=== PATIENT | male | born 1950 | race Caucasian/White ===

== ENCOUNTER 2019-09-23 09:26 | Outpatient (CLI) | payer MEDICARE, SELFPAY ==
--- NOTE | 2019-09-23 09:41 | XR_ITS ---
WS: [id number] XR chest 2V* [id number] REASON FOR EXAM: COPD FINDINGS: The lung martini are hyper aerated. In the right lung base there appears to be a nodular den sity. Follow-up evaluation of this lesion re-x-rayed and 2-3 months recommended. The heart is not enlarged There is no pneumonia, pleural effusion, pulmonary edema, no mass effect. Other than described above. There is degenerate changes of the thoracic spine XR/XR chest 2V* [id number] IMPRESSION: Chronic obstructive pulmonary disease. A questionable pulmonary nodule right lung base follow-up recommended 2-3 month s re-x-raying.
== END 2019-09-23 09:27 | disposition home or self-care (01) ==
LOC: RAD 09:37
PROVIDERS: Family Provider Family Medicine; PCP Family Medicine; Visit Provider Family Medicine
DX: J44.9 Chronic obstructive pulmonary disease, unspecified (principal)
CPT/HCPCS: 71046

== ENCOUNTER 2019-10-13 09:12 | Outpatient (CLI) | payer MEDICARE, SELFPAY ==
--- NOTE | 2019-10-13 09:34 | CT_ITS ---
WS: [id number] CT CHEST WITH INTRAVENOUS CONTRAST HISTORY: SOLITARY PULMONARY NODULE TECHNIQUE: Contiguous 5 mm axial imaging performed on the thorax. Coronal and sagittal reformats are submitted. All CT scans at [facility] use at least one of these dose optimization techniq ues: automated exposure control; mA and/or kV adjustment per patient size (includes targeted exams wh ere dose is matched to clinical indication); or iterative reconstruction. CONTRAST: Omnipaque 300; 95 mL IV. DLP: 1163.29 mGycm COMPARISON: 06/01/2010 and chest radiograph 09/23/2019 CT evaluation is limited by breathing motion artifact. Lungs and central airway: Mild pulmonary hyperinflation. Bandlike areas of atelectasis at the lung ba ses. Prominent pericardial fat is also noted. Pleura: Normal. No pleural effusion. Heart and pericardium: Slight increased pericardial fat deposition. Mediastinum and frank: No mediastinal or hilar adenopathy. Vessels: Extensive coronary artery calcifications. Mild atherosclerosis aorta. Pulmonary artery size is equal to the aorta. Chest wall and lower neck: No soft tissue masses. Upper abdomen: Small hiatal hernia. Hepatic and splenic granulomata. Mild hepatic steatosis. Prior ch olecystectomy. Mild cortical thinning and perinephric stranding around the superior poles of each kid kay. No adrenal abnormality. Osseous structures: No osteoblastic or osteolytic bone disease. Mild thoracic spondylosis. Postsurgic al changes in the mid lateral LEFT thorax for rib resection. CT/CT chest w con* [id number] IMPRESSION: 1. No pulmonary mass or nodule. 2. Chronic emphysema with platelike areas of atelectasis at the lung bases. 3. Extensive igiugig coronary artery calcification. 4. No adenopathy. 5. Prior cholecystectomy.
[2019-10-13] MEDS: iohexol 300 mg/mL 100 mL Btl IV (09:50)
== END 2019-10-13 09:13 | disposition home or self-care (01) ==
LOC: RADWPI 09:32
PROVIDERS: Family Provider Family Medicine; PCP Family Medicine; Visit Provider Family Medicine
DX: J43.9 Emphysema, unspecified (principal); R91.1 Solitary pulmonary nodule; I25.10 Atherosclerotic heart disease of native coronary artery without angina pectoris; Z90.49 Acquired absence of other specified parts of digestive tract
CPT/HCPCS: 71260; Q9967

== ENCOUNTER 2019-12-29 09:51 | Outpatient (CLI) | payer MEDICARE, SELFPAY ==
--- NOTE | 2019-12-29 13:04 | PFTS_ITS ---
Date of Study:12/29/19 Date of Dictation: MECHANICS: Forced vital capacity (FVC) is reduced. Forced expiratory volume in one second (FEV1) is reduced. FEV1/FVC is reduced. FLOW VOLUME LOOP: Reduced flow at all lung volumes with scooping. LUNG VOLUMES: Total lung capacity (TLC) is normal. Residual volume (RV) is increased. DIFFUSING CAPACITY FOR CARBON MONOXIDE: Mildly reduced. INTERPRETATION: The pulmonary function tests are consistent with moderate obstruction. There is likely a component of restriction as well. The normal total lung capacity might be due to a lung volumes are consistent with air trapping. Gas exchange (DLCO) is mildly reduced. MTDD
== END 2019-12-29 09:52 | disposition home or self-care (01) ==
LOC: RT 09:56
PROVIDERS: PCP Family Medicine; Visit Provider Family Medicine
DX: J44.9 Chronic obstructive pulmonary disease, unspecified (principal)
CPT/HCPCS: 94060; 94726; 94729

== ENCOUNTER → 2020-10-15 09:26 | Outpatient (BNVA) | payer MEDICARE, SELFPAY | PROVIDERS: PCP Family Medicine; Visit Provider Surgery | DX: R22.2 Localized swelling, mass and lump, trunk (principal); Z20.822 Contact with and (suspected) exposure to COVID-19 | CPT/HCPCS: 87635 ==

== ENCOUNTER 2020-10-20 06:53 | Day surgery (SDC) | payer MEDICARE, SELFPAY ==
[2020-10-20] VITALS (7 sets, daily range): BP systolic 107–154; BP diastolic 61–90; PULSE 67–75; RESP 13–20; TEMP 36.1–36.6; O2SAT 89–94
--- NOTE | 2020-10-20 07:43 | ANES.PREANE2 ---
Pre-Anesthetic Assessment Pre-Anesthetic Assessment: Height/Weight: Height 1.75 m Weight 148.325 kg Temp Pulse Resp BP Pulse Ox 97.4 F L 75 16 154/90 89 L 10/20/20 07:22 10/20/20 07:22 10/20/20 07:22 10/20/20 07:22 10/20/20 07:22 Preop Diagnosis: Abdominal wall mass Proposed Procedure: Operation Date: 10/20/20 08:30 Proposed Procedures p EXCISION OF ABDOMINAL WALL MASS 28484 R22.2(Not Applicable) - Paulino Bansal MD Familial anesthetic complications: none Was Beta Juan M taken within 24 hours: Yes Was Clonidine taken within 24 hours: N/A Last intake: Intake Last Liquid Date 10/19/20 Last Liquid Time 18:00 Last Solid Date 10/19/20 Last Solid Time 18:00 Social: Social History: Tobacco Exam: Pre-Anes Outpt Exam: alert, oriented x 3, clear to auscultation bilaterally and regular rate & rhythm Airway: Cervical ROM: WNL MP: 4 Dentition: Other (no teeth) Additional comments: large neck Pulmonary: Pulmonary: COPD (not on oxygen, but runs in 90s O2 sat) CV/HEM: CV/HEM: HTN Metabolic: Metabolic: Morbid obesity Anesthetic Plan: ASA status: 3 Anesthesia: Choice Risk of > 500 ml blood loss (7ml/kg in children): No PFSH Anesthesia PFSH: Medical History (Updated 09/27/20 @ 14:00 by Paulino Bansal MD) Hypertension Surgical History (Updated 09/27/20 @ 14:02 by Paulino Bansal MD) History of cholecystectomy S/P thoracotomy Social History (Updated 09/27/20 @ 13:52 by Lilian Avendano) Smoking and tobacco status: current some day smoker Second hand smoke exposure: No Alcohol intake: never Lives independently: Yes Household members: spouse Data Anesthesia Cardiac Studies: No Data to Display
[2020-10-20] MEDS: ipratropium 0.5 mg/2.5 mL Neb INHALATION (07:49)
[2020-10-20] MEDS: sodium chloride 0.9% 1,000 ML 30 ML IV (07:49)
--- NOTE | 2020-10-20 08:50 | W.PM.OPSUD ---
Surgery/Procedure H&P Update DATE OF PROCEDURE: October 20, 2020 DATE H&P PERFORMED: 09/27/20 H&P UPDATE INFORMATION: I have reviewed H&P completed within last 30 days, I have examined patient prior to procedure and No changes to prior documentation PREOP DIAGNOSIS: Abdominal wall mass PLANNED PROCEDURE: Operation Date: 10/20/20 08:30 Proposed Procedures p EXCISION OF ABDOMINAL WALL MASS 61628 R22.2(Not Applicable) - Paulino Bansal MD
[2020-10-20] MEDS: lidocaine 1% INJ 20 mL INJECTION (09:44)
--- NOTE | 2020-10-20 10:39 | PM.OP ---
Operative Report Date of procedure: October 20, 2020 Pre-op Diagnosis: Abdominal wall mass Post-op Diagnosis: Incarcerated ventral hernia containing small bowel loops Procedure Done: 1. Open repair of incarcerated ventral hernia containing small bowel 2. Implantation of Ventralight mesh Specimens removed/disposition: Hernia sac Surgeon: Paulino Bansal Anesthesia: General Condition: stable Disposition: PACU Procedure: The patient was taken to the operating room and placed under MAC after IV antibiotic had been administered. Patient had an abdominal wall which mass which measured 15 x 12 cm. 40 cc of 1% lidocaine with 0.5% Marcaine was infiltrated around the palpable mass. An 8 cm transverse incision was made over the mass and the subcutaneous was dissected free revealing a large hernia sac. The hernia sac was dissected bluntly from the surrounding subcutaneous tissue down to the hernia defect in the left rectus muscle and the sac was opened revealing incarcerated small bowel loops. There was no evidence of obstruction or strangulation. The hernia sac was excised at the level of the fascia revealing a defect measuring 2 x 4 inches wide. The small bowel was reintroduced into the peritoneal cavity and a Ventralight ST mesh was introduced as an underlay and sutured to the abdominal wall using interrupted 0 Prolene suture. The wound was irrigated with alive animal or saline and the fascia was approximated using [id number] 0 Vicryl suture to cover the mesh completely. The subcutaneous tissues were approximated in layers using interrupted 3-0 Vicryl suture and skin was closed using running subcuticular 4-0 Monocryl suture and surgical glue. The patient was transferred to recovery room in stable condition.
--- NOTE | 2020-10-20 18:03 | ANE.PACU2 ---
Inpatient post-anesthesia follow up: Airway intact: Yes Vital signs: Temperature 98 F Pulse Rate 70 Respiratory Rate 15 Blood Pressure 120/61 Pulse Oximetry 90 Oxygen Delivery Me thod Room Air Oxygen Flow Rate 8 Fraction of Inspir ed Oxygen Hydration adequate: Yes Nausea and vomiting: No Pain level: 2 Mental status: Baseline
== END 2020-10-20 11:25 | disposition home or self-care (01) ==
PROVIDERS: PCP Family Medicine; Visit Provider Surgery
PROC: (CPT 49561; principal; 2020-10-20 08:20)
DX: K43.6 Other and unspecified ventral hernia with obstruction, without gangrene (principal); J44.9 Chronic obstructive pulmonary disease, unspecified; I10 Essential (primary) hypertension; E66.01 Morbid (severe) obesity due to excess calories; Z68.42 Body mass index [BMI] 45.0-49.9, adult; F17.210 Nicotine dependence, cigarettes, uncomplicated
CPT/HCPCS: 49561; 49568; 88302; 96365; J0690; J2704; J3010; J3490; J7030; J7644

== ENCOUNTER 2020-11-22 06:00 | Outpatient (RCR) | payer MEDICARE, SELFPAY | END 2020-12-20 23:59 | disposition home or self-care (01) | LOC: SPT 06:00 | PROVIDERS: PCP Family Medicine; Referring Provider Nurse Practitioner Family; Visit Provider Nurse Practitioner Family | DX: R60.9 Edema, unspecified (principal); L03.115 Cellulitis of right lower limb | CPT/HCPCS: 29581; 97140; 97161 ==

== ENCOUNTER 2020-12-07 10:41 | Inpatient (IN) | payer MEDICARE, SELFPAY ==
[2020-12-07] VITALS (39 sets, daily range): BP systolic 96–134; BP diastolic 49–79; PULSE 51–70; RESP 14–22; TEMP 36.9; O2SAT 74–100; BMI 50.2
--- NOTE | 2020-12-07 11:13 | XRR_ITS ---
PROCEDURE INFORMATION: Exam: XR Chest Exam date and time: 12/07/2020 11:24 AM Age: 70 years old Clinical indication: Cough and dyspnea and shortness of breath; Prior surgery; Surgery type: Left ribs removed; Additional info: Dyspnea/cough TECHNIQUE: Imaging protocol: XR of the chest. Views: 1 view. COMPARISON: CT chest w con* [id number] 10/13/2019 9:48 AM FINDINGS: Lungs: Question subtle airspace disease right lung base. Lungs are otherwise well aerated. Pleural spaces: Unremarkable. No pleural effusion. No pneumothorax. Heart/Mediastinum: Cardiac silhouette is enlarged. Bones/joints: Unremarkable. XR/XR chest 1V portable [id number] IMPRESSION: Question subtle airspace disease right lung base. Lungs are otherwise well aerated.
--- NOTE | 2020-12-07 11:14 | ECG_ITS ---
[facility] Test Date: 2020-12-07 Pat Name: Santosh Brownlee Department: Room: Gender: Male Park Naturalist: : 1950 Requested By: Dashawn Quiles Order Number: [id number] Kael MD: Verenice Gomez M.D. Measurements Intervals [place] Rate: 60 P: 75 MA: 176 QRS: 105 QRSD: 111 T: 72 QT: 449 QTc: 451 Interpretive Statements SINUS RHYTHM POSSIBLE RIGHT VENTRICULAR HYPERTROPHY [SOME/ALL OF: PROMINENT R IN V1, LATE TRANSITION, RAD, TAY, SSS] SEPTAL MYOCARDIAL INFARCTION , PROBABLY OLD [40+ ms Q WAVE IN V1/V2] No previous ECG available for comparison Electronically Signed On 12-08-2020 6:51:13 CDT by Verenice Gomez M.D. [id number]
--- NOTE | 2020-12-07 11:19 | W.ED.GENADLT ---
HPI - General Adult General: Chief complaint: General Medical Stated complaint: abnormal oxygen levels Time Seen by Provider: 12/07/20 11:05 History of Present Illness: HPI narrative: 70-year-old male presents emergency room with complaint of breathing. On arrival here nurse reports to me his oxygen sats are in the 70s on room air with 2 L by nasal cannula he improved to the mid 90s. He denies any chest pain he does have some orthopnea he states this has been over the last day or 2 significantly worse today. No known history of coronary disease. He does tell me he is previously been told he has heart failure. Onset (ago): hour(s) Severity: moderate Relieving factors: other (Sitting upright, oxygen) Exacerbating factors: other (Lying down.) Associated symptoms: Reports dyspnea, malaise and short of breath; Deny chest pain, confusion, cough, diaphoresis, decreased appetite, fevers/chills, headache(s), nausea, rash, palpitations, seizures, syncope or vomiting Treatments prior to arrival: none Review of Systems Const: Reports: malaise; Denies: diaphoresis ENMT: Denies: throat pain, ear or mastoid pain, nasal discharge or nasal congestion Card: Denies: chest pain, palpitations or syncope Resp: Reports: dyspnea GI: Denies: nausea or vomiting : Denies: flank pain, dysuria, urinary frequency or urinary urgency Skin/Breast: Denies: rash Neuro: Denies: headache(s) or confusion PFS ED PFSH: Medical History Bilateral edema of lower extremity BPH (benign prostatic hyperplasia) CHF (congestive heart failure) COPD (chronic obstructive pulmonary disease) Hypertension Morbid obesity Surgical History History of cholecystectomy S/P hernia repair (10/20/20) open ventral with mesh S/P thoracotomy Family History Mother CAD (coronary artery disease) Social History Smoking and tobacco status: current some day smoker Second hand smoke exposure: No Alcohol intake: never Lives independently: Yes Household members: spouse Physical Exam Const: COMMON NORMALS: no acute distress GENERAL APPEARANCE: cooperative and comfortable ORIENTATION/CONSCIOUSNESS: Yes awake, Yes oriented to person, Yes oriented to place and Yes oriented to time HENMT: COMMON NORMALS: normocephalic, atraumatic and hearing grossly normal bilaterally HEAD & SCALP: normocephalic and atraumatic Neck/C-Spine: COMMON NORMALS: no JVD Resp: COMMON NORMALS: normal respiratory effort, No retractions, No use of accessory muscles and clear to auscultation bilaterally AUSCULTATION: clear to auscultation bilaterally Cardio: COMMON NORMALS: no JVD, regular rate, regular rhythm and No murmurs present (Cardio) RATE: regular rate RHYTHM: regular rhythm GI: COMMON NORMALS: Soft to palpation and No hepatosplenomegaly present AUSCULTATION: Yes normoactive bowel sounds PALPATION: Yes Soft to palpation, No Tenderness to palpation present (GI), No Guarding due to palpation present (GI) and Yes No hepatosplenomegaly present OTHER: Anasarca of the pannus Extremity: NARRATIVE EXTREMITY EXAM: Mild redness anterior right lower extremity. Slight erythema induration GENERAL: Yes edema (Lower extremity edema with anasarca extending to the level of the umbilicus) Neuro: SENSORIUM/ORIENTATION: Yes oriented to person, Yes oriented to place and Yes oriented to time Skin: COMMON NORMALS: no rashes or lesions noted GENERAL SKIN EXAM: no rashes or lesions noted Course Vital Signs: Vital signs: Vital Signs Temperature 98.4 F 12/09/20 16:01 Pulse Rate 80 12/10/20 06:03 Respiratory Rate 17 12/10/20 04:00 Blood Pressure 153/77 12/10/20 04:00 Pulse Oximetry 91 12/10/20 06:03 MDM - General Adult MDM Narrative: Medical decision making narrative: With acute exacerbation COPD with hypercapnic respiratory failure as well as mild CHF and cellulitis. Antibiotics initiated discussed with hospitalist. Initially placed on BiPAP with blood gas actually are slightly worsened we have made some adjustments with. He is still awake alert answers questions well. He has not begun to improve may need to consider intubation. Patient expressed understanding and is willing to be intubated if needed. At this time he he remains alert responsive follows commands discussed Dr. Ingram follow-up ABG after most recent BiPAP adjustments pending Lab Data: Labs: Lab Results 0512/07/20 12/07/20 Range/Units 11:22 12:24 12:24 WBC 10.6 H (4.0-10.0) 10^3/ uL RBC 4.83 (4.1-5.3) 10^6/u L Hgb 14.9 (11.7-16.6) g/dL Hct 48.4 (42.0-52.0) % MCV 100.2 H (80-94) fL MCH 30.8 (28.0-34.0) pg MCHC 30.8 (30.0-36.0) g/dL RDW 15.6 H (12.1-15.1) % Plt Count 278 (130-400) 10^3/c mm MPV 9.3 (7.4-10.4) fL Neut % (Auto) 70.9 % Lymph % (Auto) 14.7 % [place] % (Auto) 10.6 % Eos % (Auto) 2.1 % Baso % (Auto) 0.9 % Neut # (Auto) 7.50 (1.8-7.7) 10^3/u L Lymph # (Auto) 1.6 (0.8-4.8) 10^3/u L [place] # (Auto) 1.1 H (0.2-0.9) 10^3/u L Eos # (Auto) 0.2 (0.0-0.8) 10^3/u L Baso # (Auto) 0.1 (0.0-0.1) 10^3/u L Nucleated RBC % (a uto) 0.2 % Nucleated RBCs # 0.0 /100WBC D-Dimer (0-0.59) ug/mIFE U Specimen Type Arterial Sample Site Radial, right ABG pH 7.25 L (7.35-7.45) ABG pCO2 81.8 H* (35-45) mmHg ABG pO2 70.3 L (80.0-100.0) mmH g ABG HCO3 36.0 H (22-26) mmol/L ABG O2 Saturation 93.0 ABG Base Excess 5.4 H (-2.0-2.0) mmol/ L Vicente Test Pos A-a O2 Gradient 4.1 L (5-10) mmHg Hematocrit 46.5 (42-52) % Hgb O2 Saturation 86.2 L (95-100) % Carboxyhemoglobin 6.5 (0.4-20.1) %THgb Methemoglobin 0.7 (0.4-1.5) % Total Hemoglobin 15.2 (14-18) g/dL Sodium 137.0 138 (131-143) mmol/L Potassium 5.4 H 5.8 H (3.5-5.0) mmol/L Glucose 121.0 H 109 (70-115) mg/dL Ionized Calcium 1.2 (1.1-1.4) mmol/L O2 Delivery Device Nc O2 Liters/Min 2.0 % FiO2 28.0 % Tidal Volume PEEP cmH20 Monorail Helper ID Ed Chloride 97 L (98-107) mmol/L Carbon Dioxide 33 H (22-29) mmol/L Anion Gap 13.8 (5-19) BUN 54 H (8-23) mg/dL Creatinine 1.6 H (0.7-1.2) mg/dL GFR Calculation 42.9 L (90-130) mL/min Calculated Osmolal ity 301 H (285-295) mOsm/k g Lactic Acid (0.5-2.2) mmol/L Calcium 8.4 L (8.5-10.5) mg/dL Magnesium 2.5 H (1.7-2.3) mg/dL Total Bilirubin 0.5 (0.15-1.2) mg/dL AST 48 H (0-40) U/L ALT 103 H (0-41) U/L Alkaline Phosphata se 148 H (40-130) IU/L Creatine Kinase 25 L (39-308) U/L Troponin T Baselin e (0-15) ng/L Troponin T 120 Min [place] band (0-15) ng/L Delta Troponin T (0-10) ABS# C-Reactive Protein (0.0-4.9) mg/L NT-Pro-B Natriuret Pep 2681 H (0-125) pg/mL Total Protein 6.3 L (6.6-8.7) g/dL Albumin 3.9 (3.5-5.2) g/dL Globulin 2.4 (1.3-4.6) g/dL Procalcitonin (0-0.5) ng/mL 12/07/20 12/07/20 12/07/20 Range/Units 12:24 12:24 13:34 WBC (4.0-10.0) 10^3/ uL RBC (4.1-5.3) 10^6/u L Hgb (11.7-16.6) g/dL Hct (42.0-52.0) % MCV (80-94) fL MCH (28.0-34.0) pg MCHC (30.0-36.0) g/dL RDW (12.1-15.1) % Plt Count (130-400) 10^3/c mm MPV (7.4-10.4) fL Neut % (Auto) % Lymph % (Auto) % [place] % (Auto) % Eos % (Auto) % Baso % (Auto) % Neut # (Auto) (1.8-7.7) 10^3/u L Lymph # (Auto) (0.8-4.8) 10^3/u L [place] # (Auto) (0.2-0.9) 10^3/u L Eos # (Auto) (0.0-0.8) 10^3/u L Baso # (Auto) (0.0-0.1) 10^3/u L Nucleated RBC % (a uto) % Nucleated RBCs # /100WBC D-Dimer (0-0.59) ug/mIFE U Specimen Type Arterial Sample Site Radial, right ABG pH 7.22 L (7.35-7.45) ABG pCO2 86.1 H* (35-45) mmHg ABG pO2 92.3 (80.0-100.0) mmH g ABG HCO3 35.1 H (22-26) mmol/L ABG O2 Saturation 96.7 ABG Base Excess 4.0 H (-2.0-2.0) mmol/ L Vicente Test Pos A-a O2 Gradient 11.7 H (5-10) mmHg Hematocrit 45.5 (42-52) % Hgb O2 Saturation 90.7 L (95-100) % Carboxyhemoglobin 5.8 (0.4-20.1) %THgb Methemoglobin 0.3 L (0.4-1.5) % Total Hemoglobin 14.9 (14-18) g/dL Sodium 136.0 (131-143) mmol/L Potassium 5.5 H (3.5-5.0) mmol/L Glucose 111.0 (70-115) mg/dL Ionized Calcium 1.2 (1.1-1.4) mmol/L O2 Delivery Device Bipap O2 Liters/Min % FiO2 40.0 % Tidal Volume PEEP cmH20 Monorail Helper ID Ed Chloride (98-107) mmol/L Carbon Dioxide (22-29) mmol/L Anion Gap (5-19) BUN (8-23) mg/dL Creatinine (0.7-1.2) mg/dL GFR Calculation (90-130) mL/min Calculated Osmolal ity (285-295) mOsm/k g Lactic Acid 0.8 (0.5-2.2) mmol/L Calcium (8.5-10.5) mg/dL Magnesium (1.7-2.3) mg/dL Total Bilirubin (0.15-1.2) mg/dL AST (0-40) U/L ALT (0-41) U/L Alkaline Phosphata se (40-130) IU/L Creatine Kinase (39-308) U/L Troponin T Baselin e 24 H (0-15) ng/L Troponin T 120 Min [place] band (0-15) ng/L Delta Troponin T (0-10) ABS# C-Reactive Protein (0.0-4.9) mg/L NT-Pro-B Natriuret Pep (0-125) pg/mL Total Protein (6.6-8.7) g/dL Albumin (3.5-5.2) g/dL Globulin (1.3-4.6) g/dL Procalcitonin (0-0.5) ng/mL 12/07/20 12/07/20 12/07/20 Range/Units 14:24 14:24 15:21 WBC (4.0-10.0) 10^3/ uL RBC (4.1-5.3) 10^6/u L Hgb (11.7-16.6) g/dL Hct (42.0-52.0) % MCV (80-94) fL MCH (28.0-34.0) pg MCHC (30.0-36.0) g/dL RDW (12.1-15.1) % Plt Count (130-400) 10^3/c mm MPV (7.4-10.4) fL Neut % (Auto) % Lymph % (Auto) % [place] % (Auto) % Eos % (Auto) % Baso % (Auto) % Neut # (Auto) (1.8-7.7) 10^3/u L Lymph # (Auto) (0.8-4.8) 10^3/u L [place] # (Auto) (0.2-0.9) 10^3/u L Eos # (Auto) (0.0-0.8) 10^3/u L Baso # (Auto) (0.0-0.1) 10^3/u L Nucleated RBC % (a uto) % Nucleated RBCs # /100WBC D-Dimer (0-0.59) ug/mIFE U Specimen Type Arterial Sample Site Radial, left ABG pH 7.21 L (7.35-7.45) ABG pCO2 85.5 H* (35-45) mmHg ABG pO2 82.0 (80.0-100.0) mmH g ABG HCO3 34.3 H (22-26) mmol/L ABG O2 Saturation 95.1 ABG Base Excess 3.1 H (-2.0-2.0) mmol/ L Vicente Test Pos A-a O2 Gradient (5-10) mmHg Hematocrit 46.7 (42-52) % Hgb O2 Saturation 89.7 L (95-100) % Carboxyhemoglobin 5.4 (0.4-20.1) %THgb Methemoglobin 0.2 L (0.4-1.5) % Total Hemoglobin 15.2 (14-18) g/dL Sodium 137.0 (131-143) mmol/L Potassium 5.5 H (3.5-5.0) mmol/L Glucose 125.0 H (70-115) mg/dL Ionized Calcium 1.3 (1.1-1.4) mmol/L O2 Delivery Device Bipap O2 Liters/Min % FiO2 % Tidal Volume 0.60 PEEP 8.0 cmH20 Monorail Helper ID Ed Chloride (98-107) mmol/L Carbon Dioxide (22-29) mmol/L Anion Gap (5-19) BUN (8-23) mg/dL Creatinine (0.7-1.2) mg/dL GFR Calculation (90-130) mL/min Calculated Osmolal ity (285-295) mOsm/k g Lactic Acid (0.5-2.2) mmol/L Calcium (8.5-10.5) mg/dL Magnesium (1.7-2.3) mg/dL Total Bilirubin (0.15-1.2) mg/dL AST (0-40) U/L ALT (0-41) U/L Alkaline Phosphata se (40-130) IU/L Creatine Kinase (39-308) U/L Troponin T Baselin e (0-15) ng/L Troponin T 120 Min [place] band 23.32 H (0-15) ng/L Delta Troponin T -0.68 L (0-10) ABS# C-Reactive Protein 7.3 H (0.0-4.9) mg/L NT-Pro-B Natriuret Pep (0-125) pg/mL Total Protein (6.6-8.7) g/dL Albumin (3.5-5.2) g/dL Globulin (1.3-4.6) g/dL Procalcitonin 0.10 (0-0.5) ng/mL / Range/Units 16:07 WBC (4.0-10.0) 10^3/ uL RBC (4.1-5.3) 10^6/u L Hgb (11.7-16.6) g/dL Hct (42.0-52.0) % MCV (80-94) fL MCH (28.0-34.0) pg MCHC (30.0-36.0) g/dL RDW (12.1-15.1) % Plt Count (130-400) 10^3/c mm MPV (7.4-10.4) fL Neut % (Auto) % Lymph % (Auto) % [place] % (Auto) % Eos % (Auto) % Baso % (Auto) % Neut # (Auto) (1.8-7.7) 10^3/u L Lymph # (Auto) (0.8-4.8) 10^3/u L [place] # (Auto) (0.2-0.9) 10^3/u L Eos # (Auto) (0.0-0.8) 10^3/u L Baso # (Auto) (0.0-0.1) 10^3/u L Nucleated RBC % (a uto) % Nucleated RBCs # /100WBC D-Dimer 2.07 H (0-0.59) ug/mIFE U Specimen Type Sample Site ABG pH (7.35-7.45) ABG pCO2 (35-45) mmHg ABG pO2 (80.0-100.0) mmH g ABG HCO3 (22-26) mmol/L ABG O2 Saturation ABG Base Excess (-2.0-2.0) mmol/ L Vicente Test A-a O2 Gradient (5-10) mmHg Hematocrit (42-52) % Hgb O2 Saturation (95-100) % Carboxyhemoglobin (0.4-20.1) %THgb Methemoglobin (0.4-1.5) % Total Hemoglobin (14-18) g/dL Sodium (131-143) mmol/L Potassium (3.5-5.0) mmol/L Glucose (70-115) mg/dL Ionized Calcium (1.1-1.4) mmol/L O2 Delivery Device O2 Liters/Min % FiO2 % Tidal Volume PEEP cmH20 Monorail Helper ID Chloride (98-107) mmol/L Carbon Dioxide (22-29) mmol/L Anion Gap (5-19) BUN (8-23) mg/dL Creatinine (0.7-1.2) mg/dL GFR Calculation (90-130) mL/min Calculated Osmolal ity (285-295) mOsm/k g Lactic Acid (0.5-2.2) mmol/L Calcium (8.5-10.5) mg/dL Magnesium (1.7-2.3) mg/dL Total Bilirubin (0.15-1.2) mg/dL AST (0-40) U/L ALT (0-41) U/L Alkaline Phosphata se (40-130) IU/L Creatine Kinase (39-308) U/L Troponin T Baselin e (0-15) ng/L Troponin T 120 Min [place] band (0-15) ng/L Delta Troponin T (0-10) ABS# C-Reactive Protein (0.0-4.9) mg/L NT-Pro-B Natriuret Pep (0-125) pg/mL Total Protein (6.6-8.7) g/dL Albumin (3.5-5.2) g/dL Globulin (1.3-4.6) g/dL Procalcitonin (0-0.5) ng/mL Discharge Plan Discharge Patient Disposition: Home Clinical Impression: Acute respiratory failure with hypoxia and hypercapnia, COPD (chronic obstructive pulmonary disease), CHF (congestive heart failure), Morbid obesity, Elevated troponin, Cellulitis of right lower extremity Condition: Stable Coding Level of Care Code ED Mechanical Insulator for Chg Fwd Exam Comprehensive
[2020-12-07 11:32] LABS: ABG PH Result 7.25 (7.35-7.45); Alveolar-Arterial Oxygen Gradi 4.1 mmHg (5-10); Arterial Blood Gas Hematocrit 46.5 % (42-52); Base Excess ABG 5.4 mmol/L (-2.0-2.0); Blood Gas Allen Test Pos; Blood Gas Operator Identificat ED; Blood Gas Sample Site Radial, right; Blood Gas Sample Type Arterial; Carboxyhemoglobin 6.5 %THgb (0.4-20.1); HGB O2 Sat 86.2 % (95-100); Ionized Calcium Level - ABG 1.2 mmol/L (1.1-1.4); Methemoglobin 0.7 % (0.4-1.5); Oxygen Device NC; PO2 ABG 70.3 mmHg (80.0-100.0); Potassium Level - ABG 5.4 mmol/L (3.5-5.0); Total Hemoglobin 15.2 g/dL (14-18)
[2020-12-07 11:33] LABS: ABG PCO2 81.8 mmHg (35-45)
[2020-12-07 12:45] LABS: Basophils # 0.1 10^3/uL (0.0-0.1); Basophils % 0.9 %; Eosinophils # 0.2 10^3/uL (0.0-0.8); Eosinophils % 2.1 %; Hematocrit 48.4 % (42.0-52.0); Hemoglobin 14.9 g/dL (11.7-16.6); Lymphocytes # 1.6 10^3/uL (0.8-4.8); Lymphocytes % 14.7 %; Mean Corpuscular HGB Conc 30.8 g/dL (30.0-36.0); Mean Corpuscular Hemoglobin 30.8 pg (28.0-34.0); Mean Corpuscular Volume 100.2 fL (80-94); Mean Platelet Volume 9.3 fL (7.4-10.4); Monocytes # 1.1 10^3/uL (0.2-0.9); Monocytes % 10.6 %; Neutrophils % 70.9 %; Nucleated Red Blood Cells % 0.2 %; Platelet Count 278 10^3/cmm (130-400); Red Blood Count 4.83 10^6/uL (4.1-5.3); Red Cell Distribution Width 15.6 % (12.1-15.1); White Blood Count 10.6 10^3/uL (4.0-10.0)
[2020-12-07 13:09] LABS: Lactic Sepsis W/Reflex 0.8 mmol/L (0.5-2.2)
[2020-12-07 13:13] LABS: Troponin(5th) Baseline 24 ng/L (0-15)
--- NOTE | 2020-12-07 13:14 | ECG_ITS ---
[facility] Test Date: 2020-12-07 Pat Name: Santosh Brownlee Department: Room: Gender: Male Product Director: : 1950 Requested By: Dashawn Quiles Order Number: [id number] Reading MD: Elvia Frost M.D. Measurements Intervals [place] Rate: 54 P: 42 TN: 164 QRS: 104 QRSD: 104 T: 60 QT: 433 QTc: 414 Interpretive Statements SINUS BRADYCARDIA PATTERN CONSISTENT WITH PULMONARY DISEASE POSSIBLE RIGHT VENTRICULAR HYPERTROPHY [SOME/ALL OF: PROMINENT R IN V1, LATE TRANSITION, RAD, TAY, SSS] SEPTAL MYOCARDIAL INFARCTION , OF INDETERMINATE AGE [40+ ms Q WAVE IN V1/V2] Nonspecific ST changes Compared to ECG 12/07/2020 12:34:38 ST (T wave) deviation now present Sinus rhythm no longer present Myocardial infarct finding still present Electronically Signed On 12-09-2020 23:58:26 CDT by Elvia Frost M.D. [id number]
[2020-12-07 13:17] LABS: Alanine Aminotransferase 103 U/L (0-41); Albumin Level 3.9 g/dL (3.5-5.2); Alkaline Phosphatase 148 IU/L (40-130); Anion Gap 13.8 (5-19); Aspartate Amino Transferase 48 U/L (0-40); Blood Urea Nitrogen 54 mg/dL (8-23); Calcium 8.4 mg/dL (8.5-10.5); Carbon Dioxide 33 mmol/L (22-29); Chloride 97 mmol/L (98-107); Creatine Phosphokinase 25 U/L (39-308); Globulin 2.4 g/dL (1.3-4.6); Glomerular Filtration Rate 42.9 mL/min (90-130); Glucose 109 mg/dL (65-115); Magnesium 2.5 mg/dL (1.7-2.3); NT Pro B Type Natriuretic Pept 2681 pg/mL (0-125); Osmolality Calculated 301 mOsm/kg (285-295); Potassium 5.8 mmol/L (3.5-5.1); Sodium 138 mmol/L (136-145); Total Bilirubin 0.5 mg/dL (0.15-1.2); Total Protein 6.3 g/dL (6.6-8.7)
[2020-12-07] MEDS: ipratropium-albuterol 3 mL Neb INHALATION ×2 (13:28→19:57)
[2020-12-07] MEDS: LORazepam 2 mg/mL INJ 1 mL 1 MG IVP (13:29)
[2020-12-07 13:41] LABS: ABG PH Result 7.22 (7.35-7.45); Arterial Blood Gas Hematocrit 45.5 % (42-52); Blood Gas Allen Test Pos; Blood Gas Sample Type Arterial; Carboxyhemoglobin 5.8 %THgb (0.4-20.1); HCO3 ABG 35.1 mmol/L (22-26); HGB O2 Sat 90.7 % (95-100); Ionized Calcium Level - ABG 1.2 mmol/L (1.1-1.4); Methemoglobin 0.3 % (0.4-1.5); Oxygen Saturation ABG 96.7; PO2 ABG 92.3 mmHg (80.0-100.0); Potassium Level - ABG 5.5 mmol/L (3.5-5.0); Total Hemoglobin 14.9 g/dL (14-18)
[2020-12-07 13:42] LABS: ABG PCO2 86.1 mmHg (35-45); Alveolar-Arterial Oxygen Gradi 11.7 mmHg (5-10); Blood Gas Operator Identificat ED; Blood Gas Sample Site Radial, right; Oxygen Device BIPAP
[2020-12-07] MEDS: calcium gluconate 0.1 gm/mL 10% SDV 10mL 1 GM IVP (14:39)
[2020-12-07] MEDS: sodium polystyrene sulfonate 15 gm/60 mL Btl PO (14:40)
[2020-12-07 14:52] LABS: Troponin 5 2HR 23.32 ng/L (0-15); Troponin 5 2HR Delta -0.68 ABS# (0-10)
--- NOTE | 2020-12-07 15:12 | PM.HP ---
Providers/Chief Complaint Admitting Physician: Bogdan Lucas MD Primary Care Provider: YOGESH Tinoco Chief Complaint: abnormal oxygen levels History of Present Illness Santosh Brownlee is a 70 year old male with a past medical history of COPD, last PFT showed moderate obstruction, chronic smoker for over 50 years, history of CHF, Lasix, history of bilateral extreme edema, history of lymphedema, history of right lower extremity cellulitis for which he has been on antibiotics, gout, BPH, who presents to [facility] due to shortness of breath, and hypoxia. Currently patient is on the BiPAP, provide some history but mostly history was provided by patient's at bedside. Patient tells me that for the last 2 weeks patient has been had increased shortness of breath, he has had a slow decline in his shortness of breath, she tells me that a year ago he was able to work without feeling significantly short of breath, now he short of breath with minimal exertion, he can only lie flat for a few hours, then has to sleep in the recliner, frequently wakes up in the middle the night short of breath, has bilateral lower extremity edema for which she is on Lasix therapy, he has been on 40 mg once daily for some time, no history of CAD, no history of stress test, history of CABG. patient's denies any recent fevers, has a chronic cough, no recent travel, known exposure to COVID-19, did not receive flu vaccine, did not receive Covid vaccine, did not receive pneumonia vaccine. Here in the emergency room patient was found to have hypercarbic respiratory failure with hypoxia, was placed on BiPAP, however had worsening pH and PCO2, so his BiPAP settings were changed to AVAPS 16/8, his repeat ABG is pending. Currently he is alert oriented x3, follows all commands, tells me on the BiPAP that is feeling better. Work-up in the ER shows a BNP over 2000, patient is grossly edematous, no wheezing on exam, decreased aeration of bilateral lung martini, BMI is 50, increased neck circumference. He also has his right lower extremity wrapped in bandage, for his area of cellulitis. Review of Systems Const: Denies: fever(s) or chills Eyes: Denies: change in vision ENMT: Denies: nasal congestion Resp: Reports: dyspnea; Denies: non-productive cough GI: Denies: abdominal pain, nausea or vomiting : Denies: difficulty urinating Musc: Denies: neck pain Skin/Breast: Reports: rash and erythema Neuro: Denies: headache(s) or dizziness Endo: Denies: polyuria Medications/Allergies Home Medications Medication Instructions Recorded Confirmed Last Taken Type atenolol 25 mg tablet 50 mg PO DAILY 09/27/20 12/07/20 12/07/20 History multivitamin 1 tab PO DAILY 09/27/20 12/07/20 12/07/20 History albuterol sulfate 2 inh INHALATION Q4-5H PRN 10/20/20 12/07/20 10/19/20 History ipratropium-albuterol 3 ml INHALATION QID 10/20/20 12/07/20 12/07/20 History ondansetron HCl [Zofran] 4 mg PO Q6H PRN #20 tab 10/20/20 12/07/20 Unknown Rx allopurinol 100 mg PO DAILY 12/07/20 12/07/20 Unknown History aspirin 81 mg PO DAILY 12/07/20 12/07/20 12/07/20 History doxazosin 2 mg PO BID 12/07/20 12/07/20 12/07/20 History doxycycline hyclate 100 mg PO DAILY 12/07/20 12/07/20 12/07/20 History famotidine 20 mg PO DAILY 12/07/20 12/07/20 12/07/20 History finasteride 5 mg PO DAILY 12/07/20 12/07/20 12/06/20 History furosemide 40 mg PO DAILY 12/07/20 12/07/20 12/07/20 History Allergies Allergy/AdvReac Type Severity Reaction Status Date / Time hydrocodone Allergy Rash Verified 11/30/20 13:07 Sulfa (Sulfonamide Allergy RASH Verified 11/30/20 13:07 Antibiotics) PFSH Acute PFSH: Medical History (Updated 12/07/20 @ 15:28 by Bogdan Lucas MD) Bilateral edema of lower extremity BPH (benign prostatic hyperplasia) CHF (congestive heart failure) COPD (chronic obstructive pulmonary disease) Hypertension Morbid obesity Surgical History History of cholecystectomy S/P hernia repair (10/20/20) open ventral with mesh S/P thoracotomy Family History (Updated 12/07/20 @ 15:21 by Bogdan Lucas MD) Mother CAD (coronary artery disease) Social History Smoking and tobacco status: current some day smoker Second hand smoke exposure: No Alcohol intake: never Lives independently: Yes Household members: spouse Vitals/I&O/Wt Last Vital Signs Temp 98.4 F 12/07/20 11:00 Pulse 60 12/07/20 13:55 Resp 15 12/07/20 13:28 BP 96/64 12/07/20 12:39 Pulse Ox 94 12/07/20 13:55 Weight last 48 hrs Weight 154.221 kg Physical Exam Const: COMMON NORMALS: no acute distress GENERAL APPEARANCE: cooperative NUTRITIONAL APPEARANCE: obese and overweight ORIENTATION/CONSCIOUSNESS: Yes awake, Yes oriented to person, Yes oriented to place and Yes oriented to time Chest: COMMONS NORMALS: normal inspection of the chest Resp: COMMON NORMALS: normal respiratory effort, No retractions and No use of accessory muscles AUSCULTATION: diminished lung sounds diffuse Cardio: COMMON NORMALS: regular rate, regular rhythm, S1 normal heart sound present, S2 normal heart sound present and No murmurs present (Cardio) GI: COMMON NORMALS: Normal to inspection, nondistended, normoactive bowel sounds present and Soft to palpation INSPECTION: Yes Abdominal wall edema OTHER: Anasarca Extremity: NARRATIVE EXTREMITY EXAM: Bilateral lower extremity 2+ edema all the way up to the abdomen Bilateral lower extremities wrapped and bandaged Right lower extremity, mid sosa, area of cellulitis Neuro: COMMON NORMALS: patient oriented x3, moves all extremities and no focal motor deficits Data : 12/07/20 12:24 12/07/20 12:24 A&P Assessment and plan (1) Acute respiratory failure with hypoxia and hypercapnia: -Secondary to CHF, obesity hypoventilation syndrome, ALEX, cannot rule out right lower lobe pneumonia, COPD exacerbation less likely -I suspect the patient is chronically hypercarbic secondary to COPD, CHF, obesity hypoventilation, however baseline CO2 unknown -Currently on AVAPS, awaiting ABG -pH 7.22, PCO2 86.1, bicarb 35.1 -BNP 2681, creatinine 1.6 -WBC 10.6 Plan: -Admit to ICU -Pulmonary on consult -Continue BiPAP AVAPS, repeat ABG -Patient is a full code, agreeable to intubation if PCO2 continues to climb, patient's mentation deteriorates, or becomes increasing shortness of breath level low threshold to intubate him him and his agree, understand risks and benefits was present, all questions answered, agreed to proceed -Bumex 1 mg every 12 hours, will diurese more depending on urine output -Barnes catheter placement fluid restrictions 1500 cc -Cardiac echo ordered -Bicarb 33, will consider adding Diamox -I cannot see the right lung base, there is a possibility that there could be a pneumonia, Levaquin for antibiotic coverage -Sputum cultures, blood cultures -Does have bilateral extremity edema, does have a area of cellulitis right lower extremities, will do an ultrasound venous to rule out DVT, D-dimer pending -Full code -Lovenox for DVT prophylaxis Status: Acute (2) BPH (benign prostatic hyperplasia): Status: Acute (3) Morbid obesity: Status: Acute (4) Bilateral edema of lower extremity: Status: Acute (5) CHF (congestive heart failure): Status: Acute (6) COPD (chronic obstructive pulmonary disease): Status: Acute (7) Transaminitis: Likely hepatovascular congestion from CHF, will do right upper quadrant ultrasound, hep C, HIV, ferritin Status: Acute (8) Acute kidney injury: Creatinine 1.7, patient's baseline creatinine is unknown, I suspect he has CKD and cardiorenal syndrome, will diurese, monitor creatinine and potassium, urine output Status: Acute (9) Hyperkalemia: Received Kayexalate, calcium gluconate, repeat BMP at 6 PM Status: Acute (10) NSTEMI (non-ST elevated myocardial infarction): Likely type II NSTEMI, supply demand ischemia from respiratory failure Monitor troponins, monitor EKGs, telemetry surveillance monitor, monitor for chest pain Continue aspirin, statin Status: Acute (11) Cellulitis of right lower extremity: Continue vancomycin, Levaquin, follow cultures Status: Acute Attestations Medical Necessity Statement*: Patient requires hospitalization, ICU, greater than 2 midnights, for acute hypoxic hypercarbic respiratory failure secondary to CHF, type unknown, obesity hypoventilation syndrome, ALEX, possible right lower lobe pneumonia, with COPD, with right lower extremity cellulitis Coding Level of Care Code Acute Bar Machine Operator Multiple Spindle for Chg Fwd Diagnoses Acute respiratory failure with hypoxia and hypercapnia J96.01; J96.02 BPH (benign prostatic hyperplasia) N40.0 Morbid obesity E66.01 Bilateral edema of lower extremity R60.0 CHF (congestive heart failure) I50.9 COPD (chronic obstructive pulmonary disease) J44.9 Transaminitis R74.01 Acute kidney injury N17.9 Hyperkalemia E87.5 NSTEMI (non-ST elevated myocardial infarction) I21.4 Cellulitis of right lower extremity L03.115
[2020-12-07 15:31] LABS: ABG PH Result 7.21 (7.35-7.45); Arterial Blood Gas Hematocrit 46.7 % (42-52); Base Excess ABG 3.1 mmol/L (-2.0-2.0); Blood Gas Allen Test Pos; Blood Gas Operator Identificat ED; Blood Gas Sample Site Radial, left; Blood Gas Sample Type Arterial; Carboxyhemoglobin 5.4 %THgb (0.4-20.1); HCO3 ABG 34.3 mmol/L (22-26); HGB O2 Sat 89.7 % (95-100); Ionized Calcium Level - ABG 1.3 mmol/L (1.1-1.4); Methemoglobin 0.2 % (0.4-1.5); Oxygen Device BIPAP; Oxygen Saturation ABG 95.1; Potassium Level - ABG 5.5 mmol/L (3.5-5.0); Total Hemoglobin 15.2 g/dL (14-18)
[2020-12-07 15:32] LABS: ABG PCO2 85.5 mmHg (35-45)
--- NOTE | 2020-12-07 15:40 | P.CONIM_ITS ---
Providers/Reason For Consult Consulting Physican/Specialty*: Pulmonary and critical care medicine Reason for Consult*: Hypoxic and hypercapnic respiratory failure Attending Physician: Bogdan Lucas MD Primary Care Provider: YOGESH Tinoco History of Present Illness History of Present Illness Santosh Brownlee is a 70 year old male who was brought to the hospital from the wound care center after his oxygen saturation was found to be in the 70s on room air. In the emergency department the patient was given 2L oxygen saturation improved to mid 90s. The patient carries a diagnosis of COPD and heart failure. He has been suffering from chronic lymphedema requiring care at the wound care center. The patient is an active smoker and smoking about half a pack a day. His pulmonary function test from December 2019 was consistent with moderate airflow obstruction with air trapping. The DLCO was reduced moderately. The patient had a CT scan of the chest in September 2019. There is evidence of emphysema on the CT scan. His last echocardiogram I could find is from 2009. At that time, his ejection fraction was 55 to 60% with hypokinesis of the apex. Mild to moderate mitral regurgitation was noted. The pulmonary artery pressure was mildly elevated. The right ventricular motion was normal. The patient also has obstructive sleep apnea and according to his , he uses CPAP 1 to 2 hours every night. He is not on any inhaler at this time. Upon arrival to the emergency department, his initial blood gas showed pH of 7.25, PCO2 of 81.8, PO2 of 70.3. The latest blood gas on BiPAP revealed a pH of 7.21, PCO2 of 85.5 and PO2 of 82. Chest radiology in the emergency department revealed questionable right lower lung zone infiltrate. Laboratory data did not reveal any significant leukocytosis. The patient has macrocytosis. Mild hyperkalemia and elevated creatinine. The patient also has mildly elevated liver enzymes likely secondary to hepatic congestion. The patient was seen and examined in the emergency department. The patient is currently on a AVAPS. His minute ventilation is about 10 to 12 L. The patient is able to respond not in any significant pain does not appear uncomfortable. I performed a bedside ultrasound. The patient has right ventricular hypertrophy with visible moderator band. There is flattening of the interventricular septum. The estimated pulmonary artery pressure was approximately 40. There was no B-lines on lung ultrasound. According to the present at bedside, he has been suffering from worsening wheezing and shortness of breath over the past few days at home. The rest of the history was limited because of his clinical condition. Review of Systems Narrative: Unable to obtain because of the clinical condition. Meds/Allergies Home Medications and Allergies Home Medications Medication Instructions Recorded Confirmed Last Taken Type atenolol 25 mg tablet 50 mg PO DAILY 09/27/20 12/07/20 12/07/20 History multivitamin 1 tab PO DAILY 09/27/20 12/07/20 12/07/20 History albuterol sulfate 2 inh INHALATION Q4-5H PRN 10/20/20 12/07/20 10/19/20 History ipratropium-albuterol 3 ml INHALATION QID 10/20/20 12/07/20 12/07/20 History ondansetron HCl [Zofran] 4 mg PO Q6H PRN #20 tab 10/20/20 12/07/20 Unknown Rx allopurinol 100 mg PO DAILY 12/07/20 12/07/20 Unknown History aspirin 81 mg PO DAILY 12/07/20 12/07/20 12/07/20 History doxazosin 2 mg PO BID 12/07/20 12/07/20 12/07/20 History doxycycline hyclate 100 mg PO DAILY 12/07/20 12/07/20 12/07/20 History famotidine 20 mg PO DAILY 12/07/20 12/07/20 12/07/20 History finasteride 5 mg PO DAILY 12/07/20 12/07/20 12/06/20 History furosemide 40 mg PO DAILY 12/07/20 12/07/20 12/07/20 History Allergies Allergy/AdvReac Type Severity Reaction Status Date / Time hydrocodone Allergy Rash Verified 11/30/20 13:07 Sulfa (Sulfonamide Allergy RASH Verified 11/30/20 13:07 Antibiotics) PFSH Acute PFSH: Medical History Bilateral edema of lower extremity BPH (benign prostatic hyperplasia) CHF (congestive heart failure) COPD (chronic obstructive pulmonary disease) Hypertension Morbid obesity Surgical History History of cholecystectomy S/P hernia repair (10/20/20) open ventral with mesh S/P thoracotomy Family History Mother CAD (coronary artery disease) Social History Smoking and tobacco status: current some day smoker Second hand smoke exposure: No Alcohol intake: never Lives independently: Yes Household members: spouse Vitals/I&O/Wt Last Vital Signs Temp 98.4 F 12/07/20 11:00 Pulse 61 12/07/20 15:32 Resp 19 H 12/07/20 15:32 BP 112/70 12/07/20 15:32 Pulse Ox 96 12/07/20 15:32 Weight last 48 hrs Weight 340 lb Physical Exam Narrative: EXAM NARRATIVE: General: Patient is on BiPAP, able to nod his head and answer simple questions. Neck: Unable to assess JVD Respiratory: Auscultation: Reduced breath sound bilaterally, no crackles or wheezing, occasional rhonchi Cardiovascular: Regular rate and rhythm, S1-S2 present, distant heart sound, significant bilateral peripheral edema with erythema Abdomen: Soft, nontender, distended from obesity, positive bowel sound Skin: Erythema in bilateral lower extremity, right lower extremity is in a bandage Neuro: Appears lethargic, able to answer questions by nodding his head Data Other Data: Attestation for Other Data: I personally reviewed and interpreted the following: A&P Assessment and plan (1) Acute respiratory failure with hypoxia: The patient has presented to the hospital with new onset acute hypoxic respiratory failure is likely secondary to hypercapnic respiratory failure. His hypoxia should improve with oxygen supplementation. This was also the case when the patient improved to a saturation of the mid 90s with only 2 L of oxygen. Status: Acute (2) Acute and chronic respiratory failure with hypercapnia: The patient likely has a baseline PCO2 in the 50s. The patient has acute on chronic hypercapnic respiratory failure. The reason for his chronic hypercapnic respiratory failure is likely obesity hypoventilation syndrome as well as COPD. The patient has developed decompensated cor pulmonale leading to worsening hypercapnic respiratory failure. The patient appears to be communicative. Will make changes to the AVAPS to ensure adequate ventilation and improvement in CO2 level. Status: Acute (3) Cor pulmonale: On the bedside ultrasound, the patient has, flattening of the interventricular septum, hypertrophy of the right ventricle. The patient also has bilateral lower extremity pitting edema consistent with the diagnosis of cor pulmonale. The patient would require aggressive diuresis. He is many milliliters fluid positive. Status: Acute (4) COPD (chronic obstructive pulmonary disease): The patient has moderate airflow obstruction with air trapping. He will need optimization of his therapy. For now, the patient could receive nebulized treatment with budesonide and DuoNeb. He could receive prednisone 40 mg for 5 days and renally dosed Levaquin for 5 days Status: Acute (5) Morbid obesity: The patient has super morbid obesity. Given his RV failure and obesity he may be a difficult candidate for intubation. I believe if we diurese him well his respiratory status will get better. Status: Acute Coding Level of Care Code Acute Wire Coating Machine Operator for liz Roberson Diagnoses Acute respiratory failure with hypoxia J96.01 Acute and chronic respiratory failure with hypercapnia J96.22 Cor pulmonale I27.81 COPD (chronic obstructive pulmonary disease) J44.9 Morbid obesity E66.01
[2020-12-07 16:31] LABS: D Dimer 2.07 ug/mIFEU (0-0.59)
[2020-12-07] MEDS: levofloxacin-dextrose 5 % 750 MG/150 ML PREMIX 100 MG IV (17:10)
[2020-12-07] MEDS: bumetanide 0.25 mg/mL SDV 4 mL 1 MG IV (17:10)
[2020-12-07] MEDS: pantoprazole 40 mg SDV IVP (17:10)
[2020-12-07] MEDS: enoxaparin 40 mg/0.4 mL Syringe SUBCUT (17:10)
[2020-12-07 17:14] LABS: C Reactive Protein 7.3 mg/L (0.0-4.9)
--- NOTE | 2020-12-07 17:14 | ECG_ITS ---
[facility] Test Date: 2020-12-07 Pat Name: Santohs Brownlee Department: Room: ICU02 Gender: Male [employer]S [employer] Consultant: : 1950 Requested By: Dashawn Quiles Order Number: [id number] Kael MD: Verenice Gomez M.D. Measurements Intervals [place] Rate: 58 P: 71 [place]: 170 QRS: 111 QRSD: 120 T: 63 QT: 449 QTc: 443 Interpretive Statements SINUS BRADYCARDIA POSSIBLE RIGHT VENTRICULAR HYPERTROPHY [SOME/ALL OF: PROMINENT R IN V1, LATE TRANSITION, RAD, TYA, SSS] Compared to ECG 12/07/2020 14:34:22 Myocardial infarct finding no longer present ST (T wave) deviation no longer present Electronically Signed On 12-08-2020 7:00:10 CDT by Verenice Gomez M.D. [id number]
--- NOTE | 2020-12-07 18:09 | XRR_ITS ---
PROCEDURE INFORMATION: Exam: XR Chest Exam date and time: 12/07/2020 6:32 PM Age: 70 years old Clinical indication: Device placement; Ett placement (vent status); Additional info: Dyspnea/cough TECHNIQUE: Imaging protocol: XR of the chest. Views: 1 view. COMPARISON: CR XR chest 1V portable [id number] 12/07/2020 11:14 AM FINDINGS: Tubes, catheters and devices: Endotracheal tube 3.5 cm above the arminda. NG tube in the stomach. Lungs: Decreased volume of the left lung with hazy airspace opacities new from prior. Coarsened reticular interstitial lung change in the background. Pulmonary aeration at right lung base increased from prior. Pleural spaces: Unremarkable. No pleural effusion. No pneumothorax. Heart/Mediastinum: Cardiac enlargement. Bones/joints: Unremarkable. XR/XR chest 1V portable [id number] IMPRESSION: 1. Satisfactory position of endotracheal tube. 2. Left lung opacities are new from comparison. Suspect atelectasis changes.
[2020-12-07] MEDS: propofol 1,000 MG/100 ML INJ 13.9 MG IV (18:10)
--- NOTE | 2020-12-07 18:21 | ANES.PROC ---
Anesthesia Procedures Procedure/Date: 12/07/20 Intubation: Time Out Performed: No Consent: requested by attending/covering physician Sedative (amount): other (Propofol) Laryngoscope: fiber optic video scope Assist Device Used: fiber optic device ET Tube Size: 8 ET Tube Uncuffed: Yes Tube Secured Depth (cm): 25 Tube Secured Location: lips Tube Placement Confirmation: visualized tube passing through cords, equal breath sounds bilaterally, no breath sounds over epigastrium, confirmation by capnometry and color change noted Patient Tolerated Procedure: well and no complications Intubation Complications: none
[2020-12-07 19:33] LABS: Add Urine Microscopic? NO; Charge for UA Resulting for Rev
[2020-12-07 19:42] LABS: Bilirubin Urine Neg (Negative); Blood Urine Neg (Negative); Glucose Urine UA Norm (Normal); Ketones Urine Negative (Negative); Leukocyte Esterase Urine Negative (Negative); Nitrate Urine Negative (Negative); Protein Urine Neg (Negative); Specific Gravity, Urine 1.015 (1.005-1.030); Urine Appearance Clear (CLEAR); Urine Color Yellow (Yellow); Urobilinogen Urine Norm (Negative); pH Urine 5 (5-7)
--- NOTE | 2020-12-07 19:52 | PC.NURSE ---
[address] Lucas that patient was not awake enough to swallow pills safely. [address] Lucas to report patient's neuro status. Orders to try a second time to give patient PO medications. 1755 Dr. Lucsa at bedside. Orders to hold PO medications and prepare for intubation. 1800 Dr. English at bedside to intubate patient.
[2020-12-07 20:18] LABS: HIV 1 & 2 Antibody Non-Reactive (Non-Reactiv); HIV 1 & 2 Antigen Non-Reactive (Non-Reactiv)
[2020-12-07 20:31] LABS: Anion Gap 13.4 (5-19); Blood Urea Nitrogen 57 mg/dL (8-23); Calcium 8.1 mg/dL (8.5-10.5); Carbon Dioxide 32 mmol/L (22-29); Chloride 96 mmol/L (98-107); Ferritin 21 ng/mL (30-400); Glomerular Filtration Rate 42.9 mL/min (90-130); Glucose 166 mg/dL (65-115); Osmolality Calculated 300 mOsm/kg (285-295); Potassium 6.4 mmol/L (3.5-5.1); Sodium 135 mmol/L (136-145); Thyroid Stimulating Hormone 3.84 uIU/mL (0.27-4.20)
[2020-12-07] MEDS: propofol 1,000 MG/100 ML INJ 27.8 MG IV (20:41)
[2020-12-07 21:20] LABS: ABG PH Result 7.29 (7.35-7.45); Arterial Blood Gas Hematocrit 45.5 % (42-52); Base Excess ABG 3.6 mmol/L (-2.0-2.0); Blood Gas Allen Test Pos; Blood Gas Sample Site Radial, right; Blood Gas Sample Type Arterial; HCO3 ABG 32.6 mmol/L (22-26); Oxygen Device VENT; PO2 ABG 70.6 mmHg (80.0-100.0)
[2020-12-07 21:22] LABS: ABG PCO2 68.5 mmHg (35-45)
[2020-12-07 21:45] LABS: Hepatitis A Antibody IgM Non-Reactive (Nonreactive); Hepatitis B Core IgM Non-Reactive (Nonreactive); Hepatitis B Surface Antigen Non-Reactive (Nonreactive); Hepatitis C Virus Antibody Non-Reactive (Nonreactive)
[2020-12-08] VITALS (54 sets, daily range): BP systolic 99–131; BP diastolic 53–78; PULSE 52–71; RESP 16–18; TEMP 36.3; O2SAT 90–96
[2020-12-08] MEDS: ipratropium-albuterol 3 mL Neb INHALATION ×6 (00:10→19:41)
[2020-12-08] MEDS: propofol 1,000 MG/100 ML INJ 46.3 MG IV ×9 (00:39→23:18)
[2020-12-08] MEDS: bumetanide 0.25 mg/mL SDV 4 mL 1 MG IV ×3 (01:54→18:12)
[2020-12-08 04:57] LABS: Basophils % 0.3 %; Eosinophils % 0.1 %; Hematocrit 47.9 % (42.0-52.0); Hemoglobin 14.6 g/dL (11.7-16.6); Lymphocytes # 0.6 10^3/uL (0.8-4.8); Lymphocytes % 7.6 %; Mean Corpuscular HGB Conc 30.5 g/dL (30.0-36.0); Mean Corpuscular Hemoglobin 30.3 pg (28.0-34.0); Mean Corpuscular Volume 99.4 fL (80-94); Mean Platelet Volume 9.3 fL (7.4-10.4); Monocytes # 0.3 10^3/uL (0.2-0.9); Monocytes % 4.1 %; Neutrophils # 6.73 10^3/uL (1.8-7.7); Neutrophils % 87.1 %; Nucleated Red Blood Cells % 0.3 %; Platelet Count 280 10^3/cmm (130-400); Red Blood Count 4.82 10^6/uL (4.1-5.3); Red Cell Distribution Width 15.2 % (12.1-15.1); White Blood Count 7.7 10^3/uL (4.0-10.0)
[2020-12-08 05:04] LABS: ABG PCO2 60.1 mmHg (35-45); ABG PH Result 7.38 (7.35-7.45); Base Excess ABG 8.2 mmol/L (-2.0-2.0); Blood Gas Allen Test Pos; Blood Gas Sample Type Arterial; HCO3 ABG 35.6 mmol/L (22-26)
[2020-12-08 05:05] LABS: Blood Gas Sample Site Radial, right; Oxygen Device VENT
[2020-12-08 05:13] LABS: Alanine Aminotransferase 80 U/L (0-41); Albumin Level 3.3 g/dL (3.5-5.2); Alkaline Phosphatase 129 IU/L (40-130); Anion Gap 15.1 (5-19); Aspartate Amino Transferase 31 U/L (0-40); Blood Urea Nitrogen 56 mg/dL (8-23); Calcium 8.3 mg/dL (8.5-10.5); Carbon Dioxide 31 mmol/L (22-29); Chloride 96 mmol/L (98-107); Globulin 2.9 g/dL (1.3-4.6); Glomerular Filtration Rate 46.3 mL/min (90-130); Glucose 153 mg/dL (65-115); Magnesium 2.2 mg/dL (1.7-2.3); Osmolality Calculated 303 mOsm/kg (285-295); Phosphorus 4.3 mg/dL (2.5-4.5); Potassium 5.1 mmol/L (3.5-5.1); Sodium 137 mmol/L (136-145); Total Bilirubin 0.5 mg/dL (0.15-1.2); Total Protein 6.2 g/dL (6.6-8.7)
[2020-12-08 05:15] LABS: Lactate (Lactic Acid level) 1.1 mmol/L (0.5-2.2)
[2020-12-08 05:18] LABS: NT Pro B Type Natriuretic Pept 1557 pg/mL (0-125)
--- NOTE | 2020-12-08 06:00 | US_ITS ---
WS: [id number] ULTRASOUND ABDOMEN LIMITED CLINICAL INFORMATION: RUQ and gallbladder COMPARISON: None. FINDINGS: Technically difficult examination due to body habitus. Liver Size: Enlarged Craniocaudal length: 21.1 cm. Echogenicity: Dense Surface nodularity: None. Mass (size and location): None. Bile ducts Intrahepatic ducts: Normal. Common bile duct diameter: 0.5 cm. Gallbladder Prior cholecystectomy Pancreas Normal as visualized. Right kidney: Normal. Hydronephrosis: None. Size: 12.8 cm x 5.4 cm x 5.9 cm. Abdominal aorta and IVC Visualized portions are normal. Ascites: None. US/US abdomen limited [id number] IMPRESSION: 1. Hepatomegaly with mild diffuse fatty infiltration. 2. Prior cholecystectomy. 3. No hydronephrosis in right kidney. 4. Technically difficult examination due to body habitus. 5. Normal common bile duct.
--- NOTE | 2020-12-08 06:00 | USCV_ITS ---
Santosh Brownlee Age: 70 Gender: M : 1950 Exam Date: 12/08/2020 07:02 Ordering Phys: Bogdan Lucas MD Technologist: CARMINE Exam Location: [facility] – [place] Indication: SOB BP: 128 / 75 HR: 53 Rhythm: Sinus Technical Quality: Technically difficult study MEASUREMENTS (Male / Female) Normal Values 2D ECHO LV Diastolic Diameter PLAX 5.0 cm 4.2 - 5.9 / 3.9 - 5.3 cm LV Systolic Diameter PLAX 4.4 cm LV Chamber Size 3.5 cm IVS Diastolic Thickness 1.9 cm 0.6 - 1.0 / 0.6 - 0.9 cm IVS Systolic Thickness 2.6 cm LVPW Diastolic Thickness 2.2 cm 0.6 - 1.0 / 0.6 - 0.9 cm LVPW Systolic Thickness 2.4 cm RV Chamber Size 3.6 cm LVOT Diameter 2.0 cm LV Ejection Fraction 2D Teich 24.8 % LA Diameter 3.5 cm LA Width 4.3 cm LA Height 5.4 cm RA Width 5.9 cm RA Height 6.5 cm Aorta at Sinotubular Diameter 2.9 cm M-MODE LV Diastolic Diameter MM 6.5 cm 4.2 - 5.9 / 3.9 - 5.3 cm LV Systolic Diameter MM 4.5 cm LV Ejection Fraction MM Teich 56.4 % IVS Diastolic Thickness MM 1.4 cm 0.6 - 1.0 / 0.6 - 0.9 cm IVS Systolic Thickness MM 1.6 cm LVPW Diastolic Thickness MM 1.1 cm 0.6 - 1.0 / 0.6 - 0.9 cm LVPW Systolic Thickness MM 1.7 cm Aortic Annulus Diameter 3.7 cm LA Ao Ratio MM 1.0 MV E Point Septal Separation 1.9 cm DOPPLER AV Peak Velocity 97.0 cm/s LVOT Peak Velocity 107.0 cm/s AV Area Cont Eq vti 3.3 cm squared AV Area Cont Eq pk 3.6 cm squared MV Area PHT 2.2 cm squared Mitral E to A Ratio 1.0 MV E' Velocity 34.5 cm/s Mitral E to MV E' Ratio 7.1 Mitral E to LV E' Lateral Ratio 6.5 Mitral E to LV E' Septal Ratio 7.8 TR Peak Velocity 265.3 cm/s TR Peak Gradient 28.2 mmHg TV Peak E Velocity 55.0 cm/s Right Atrial Pressure 15.0 mmHg Pulmonary Artery Systolic Pressu 43.2 mmHg PV Peak Velocity 79.0 cm/s RV Acceleration Time 0.2 s RV Ejection Time 0.5 s RV AcT/ET 0.4 FINDINGS Left Ventricle Normal left ventricular size. Poor visualization cardiac structures. Grossly LV systolic function is moderately reduced. Regional wall motion abnormalities can not be assessed because of limited visualization. Right Ventricle The right ventricle is dilated Right Atrium The right atrium is dilated. Elevated RA pressure Left Atrium The left atrium is dilated Mitral Valve Grossly normal without significant stenosis or prolapse. There is no mitral regurgitation. Aortic Valve Not well visualized. No significant stenosis is noted Tricuspid Valve Grossly normal. Mild tricuspid regurgitation. RVSP is 35-40mmHg. Mild pulmonary hypertension Pulmonic Valve Not visualized Pericardium Normal pericardium without effusion. Aorta Normal ascending aorta dimension. CONCLUSIONS Limited quality echocardiogram because of poor ultrasonic windows Difficult to assess LV systolic function but grossly is moderately reduced Regional wall motion abnormalities can not be assessed because of poor visualization RV is enlarged Biatrial enlargement Mild pulmonary hypertension Mild tricuspid regurgitation No comparison studies are available. Recommend repeating limited echocardiogram with contrast to better assess LV function and regional wall motion abnormalities. Avery Franco MD (Electronically Signed) Final Date: 12 Dec 2020 13:17 S
--- NOTE | 2020-12-08 06:00 | USCV_ITS ---
Santosh Brownlee Age: 70 Gender: M : 1950 Exam Date: 12/08/2020 06:44 Ordering Phys: Bogdan Lucas MD Technologist: CARMINE [place] [facility] [place]: [place] HISTORY: DVT. PROCEDURES: Venous duplex imaging was performed in bilateral lower extremities. The following venous structures were evaluated: common femoral vein, profunda vein, proximal portion of the greater saphenous vein, superficial femoral vein, and the popliteal vein. In addition, the posterior tibial and peroneal trunk were evaluated. Serial compression, augmentation maneuvers, and spectral Doppler flow evaluation were performed. FINDINGS: Normal 2-D Doppler and augmentation and compressibility throughout the lower extremity venous structures. Additional imaging through the proximal calf veins also reveals no thrombus. Limited evaluation of the greater saphenous vein is patent with no thrombus.. CONCLUSIONS No evidence of right lower extremity DVT. No evidence of left lower extremity DVT. Hunter Alcaraz MD (Electronically Signed) Final Date: 08 Dec 2020 17:56 S
--- NOTE | 2020-12-08 06:07 | PC.NURSE ---
early in shift patient not compliant with vent only pulling tidal volumes in the 50's at times, Dr. Salas notified and gave v.o. to start Versed drip, rest of not patient tolerated vent with tidal volumes in the 400 to 500's, no s/s of distress, does not tolerate major position changes well but settles down easily, supine 45 degrees call light within reach at this time
--- NOTE | 2020-12-08 07:00 | PC.NURSE ---
Bed side report recevied from Prasad, Rn,, Pt sedated and on vent. Medications infusing: Levophed at 4mcg/min, Versed at 4mg/hr, Propofol at 40mcg/kg/min, and Fentanyl at 100mcg/hr. OG noted. Barnes patent and draiing. Cellulitis right lower leg, pt edematous bilat, pitting. No SCDs noted, pt on Lovenox.
--- NOTE | 2020-12-08 08:11 | XR_ITS ---
WS: [id number] Portable AP semiupright chest, 12/08/2020 Clinical Data: sob Comparison: Portable chest, 12/07/2020. Findings: The endotracheal tube remains above the arminda. There is a nasogastric tube in the esophagu s. The opacity in the left lung has partly resolved. There is a left pleural effusion. The right lung has developed opacities in the right lower lobe and right upper lobe. The heart size is not changed. There are monitor leads on the chest wall. XR/XR chest 1V portable [id number] Impression: 1. Endotracheal tube above the arminda. 2. Clearing of left upper lobe opacity with persistence of left pleural effusio n. 3. Development of minimal opacities in the right upper lobe and right lower lob e.
--- NOTE | 2020-12-08 08:16 | PC.OT ---
OT EVALUATION ORDERS RECEIVED. PATIENT CURRENTLY ON VENT/SEDATED. WILL HOLD OT EVAL AT THIS TIME. WILL ATTEMPT AGAIN AT A LATER TIME.
[2020-12-08] MEDS: finasteride 5 mg Tablet PO (09:10)
[2020-12-08] MEDS: metOLazone 5 MG Tablet 10 MG PO (09:10)
[2020-12-08] MEDS: allopurinol 100 mg Tablet PO (09:11)
[2020-12-08] MEDS: aspirin 81 mg Chew Tablet PO (09:11)
[2020-12-08] MEDS: doxazosin 4 mg Tablet 2 MG PO ×2 (09:16→18:12)
--- NOTE | 2020-12-08 10:27 | PC.CHAP ---
Pastoral Care Encounter/Spiritual Assessment Type of Contact [] Declined lead investigator visit [] Patient/Family/Request visit [] Outpatient visit [] Follow-up visit [] Physician referral [] Code/Alert [x] Routine visit [] Staff referral [] Actively dying [] Patient sleeping [] Family support [] [] Out of room [] Palliative care [] [] Receiving care in room [] Pre-surgical visit [] Trauma [] Long length of stay [x] ICU visit [x] Other:ventilator Relational/Emotional Strength [] Patient feels connected with others/family/visitors/staff [] Distress [] Loneliness/isolation [] Abandonment Spirituality of Patient [] Person of Charu [] Attends Shinto of their Charu [] Believes in Prayer [] Reads Bible or Mormon materials [] There are Spiritual issues to be addressed Nurse Assessor Interventions [x] Prayer [] Active listening [] Non-anxious presence [] Spiritual/emotional support [] Crisis/trauma care [] Spiritual counseling [] Bereavement support [] Provided bereavement packet [] Provided Bible/devotional materials [] Provided toy/stuffed animal, coloring book to patient or family member [] Provided Communion [] Anointing/[place] [] Salvation [x] Completed spiritual assessment [] Other: Impact on Illness or Injury [] Angry [] Fearful [] Anxious [] Often cries [] Exhaustion [] Unable to work [] Unable to attend cheondoism [] Unable to walk/stand [] Unable to read [] Unable to drive [] Unable to eat/drink [] Unable to sleep [] Unable to be with family [] Patient intubated [] Other: Summary Time spent with patient
--- NOTE | 2020-12-08 11:22 | P.PN_ITS ---
Subjective Subjective: Interval history: Patient was examined this morning, currently is intubated, sedated, on the ventilator, overnight patient did have episodes of confusion, requiring the addition of Versed to his sedation, currently on minimal Levophed, continues to have good urine output, tolerating diuretics, Vitals/I&O/Wt Last Vital Signs Temp 97.4 F L 12/08/20 08:00 Pulse 55 L 12/08/20 10:00 Resp 16 12/08/20 10:15 BP 117/63 12/08/20 10:00 Pulse Ox 95 12/08/20 10:15 12/07/20 12/08/20 12/08/20 22:59 06:59 14:59 Intake Total 365.270 / 365.270 638.73 / 1004.000 150 / 150 Output Total 3300 / 3300 750 / 750 Balance 365.270 / 365.270 -2661.27 / -2296.000 -600 / -600 Weight last 48 hrs Weight 154.221 kg Physical Exam Const: NUTRITIONAL APPEARANCE: obese OTHER: Intubated, sedated Resp: COMMON NORMALS: normal respiratory effort, No retractions and No use of accessory muscles AUSCULTATION: wheezes Cardio: COMMON NORMALS: regular rate, regular rhythm, S1 normal heart sound present and S2 normal heart sound present RATE: regular rate RHYTHM: regular rhythm HEART SOUNDS: S1 normal heart sound present and S2 normal heart sound present GI: COMMON NORMALS: Soft to palpation INSPECTION: Yes normal to inspection, Yes Anasarca, Yes abdominal distension, Yes central obesity and Yes GI erythema present PALPATION: Yes Soft to palpation, No Firmness to palpation present (GI), No Tenderness to palpation present (GI) and No Guarding due to palpation present (GI) OTHER: Erythema present over lower pannus surgical site, with Surgicel Extremity: NARRATIVE EXTREMITY EXAM: Bilateral lower extremity 2+ pitting edema Right lower extremity, mid sosa, has a 3 x 4 cm area of erythema, macular rash, Urinary Catheter Management^: Barnes: Cath Placed During This Visit: yes Reason for Continuing Indwelling Catheter: Accurate Measurement of Urinary Output in Critically Ill Patients Urinary Catheter Date of Insertion: 12/07/20 Urinary Catheter Time of Insertion: 19:00 Data : 12/08/20 04:00 12/08/20 04:00 Micro: Microbiology 12/07/20 18:19 Gram Stain - Final Sputum - Endotracheal Tube Aspirate 12/07/20 18:40 Bacterial Antigens - Final Urine,Clean Catch 12/07/20 15:27 Blood Culture - Preliminary Blood SPECIMEN COLLECTED 12/07/20 15:27 Blood Culture - Preliminary Blood SPECIMEN COLLECTED A&P Assessment and plan (1) Acute respiratory failure with hypoxia and hypercapnia: -Secondary to CHF, obesity hypoventilation syndrome, ALEX, cannot rule out right lower lobe pneumonia, COPD exacerbation -I suspect the patient is chronically hypercarbic secondary to COPD, CHF, obesity hypoventilation, however baseline CO2 unknown -Currently intubated, sedated on the ventilator -pH 7.38, PCO2 60.1, bicarb 35.6 -BNP 1557, creatinine 1.5, potassium 5.1 Plan: -Admit to ICU -Pulmonary on consult -Continue ventilator, minimize PEEP, minimize FiO2, Daily spontaneous breathing trials, propofol and fentanyl for sedation, wean off Versed -Bumex 1 mg every 8 hours, with metolazone -Barnes catheter placement fluid restrictions 1500 cc -Cardiac echo ordered -Bicarb 31, will consider adding Diamox -there is a possibility that there could be a pneumonia, Levaquin for antibiotic coverage -Solu-Medrol 40mg IV every 8 hours -Sputum cultures, blood cultures -Does have bilateral extremity edema, does have a area of cellulitis right lower extremities, will do an ultrasound venous to rule out DVT -Full code -Lovenox for DVT prophylaxis Status: Acute (2) BPH (benign prostatic hyperplasia): Status: Acute (3) Morbid obesity: Status: Acute (4) Bilateral edema of lower extremity: Status: Acute (5) CHF (congestive heart failure): Status: Acute (6) COPD (chronic obstructive pulmonary disease): Status: Acute (7) Transaminitis: Likely hepatovascular congestion from CHF, will do right upper quadrant ultrasound, hep C, HIV, ferritin Status: Acute (8) Acute kidney injury: Creatinine 1.5, patient's baseline creatinine is unknown, I suspect he has CKD and cardiorenal syndrome, will diurese, monitor creatinine and potassium, urine output Status: Acute (9) Hyperkalemia: Received Kayexalate, calcium gluconate, repeat BMP at 6 PM Status: Acute (10) NSTEMI (non-ST elevated myocardial infarction): Likely type II NSTEMI, supply demand ischemia from respiratory failure Monitor troponins, monitor EKGs, telemetry equipment monitor phototypesetting, monitor for chest pain Continue aspirin, statin Status: Acute (11) Cellulitis of right lower extremity: Continue vancomycin, Levaquin, follow cultures Status: Acute Attestations Medical Necessity Statement*: Patient requires hospitalization, inpatient, for acute hypercarbic respiratory failure requiring intubation, mechanical ventilation, CHF exacerbation, COPD exacerbation, pneumonia, cellulitis, critical care time spent over 55 minutes Coding Level of Care Code Acute Museum Director for g Fwd Diagnoses Acute respiratory failure with hypoxia and hypercapnia J96.01; J96.02 BPH (benign prostatic hyperplasia) N40.0 Morbid obesity E66.01 Bilateral edema of lower extremity R60.0 CHF (congestive heart failure) I50.9 COPD (chronic obstructive pulmonary disease) J44.9 Transaminitis R74.01 Acute kidney injury N17.9 Hyperkalemia E87.5 NSTEMI (non-ST elevated myocardial infarction) I21.4 Cellulitis of right lower extremity L03.115
--- NOTE | 2020-12-08 15:50 | P.PN_ITS ---
Subjective Subjective: Interval history: The patient was seen and examined. Intubated and sedated in ICU. Unable to respond to vocal commands at this point. The patient got intubated yesterday after failing a trial of BiPAP. The blood gas currently is optimal. The patient is on volume control mechanical ventilation with 500 cc of tidal volume, PEEP of 10, FiO2 of 70% and respiratory rate of 16. The patient is being diuresed with bumetanide and metolazone with excellent urine output. There is no significant leukocytosis, elevated liver enzymes have come down and creatinine stable. Medications: Reviewed: Yes Vitals/I&O/Wt Last Vital Signs Temp 97.4 F L 12/08/20 12:00 Pulse 58 L 12/08/20 15:25 Resp 18 12/08/20 15:20 BP 113/54 12/08/20 14:00 Pulse Ox 93 12/08/20 15:20 12/08/20 12/08/20 12/08/20 06:59 14:59 22:59 Intake Total 638.73 / 1504.000 501.542 / 501.542 100 / 601.542 Output Total 3300 / 3300 1750 / 1750 Balance -2661.27 / -1796.000 -1248.458 / -1248.458 100 / -1148.458 Weight last 48 hrs Weight 340 lb Physical Exam Narrative: EXAM NARRATIVE: General: The patient is intubated and sedated Neck: Unable to assess JVD Respiratory: Auscultation: Bilateral crackles at the lung bases, no wheezing but diffuse rhonchi Cardiovascular: Regular rate and rhythm, S1-S2 present, distant heart sound, significant bilateral peripheral edema with erythema Abdomen: Soft, distended from obesity, positive bowel sound Skin: Erythema in bilateral lower extremity, right lower extremity is in a bandage Neuro: Unable to assess Urinary Catheter Management^: Barnes: Cath Placed During This Visit: yes Reason for Continuing Indwelling Catheter: Accurate Measurement of Urinary Output in Critically Ill Patients Urinary Catheter Date of Insertion: 12/07/20 Urinary Catheter Time of Insertion: 19:00 Data : 12/08/20 04:00 12/08/20 04:00 Micro: Microbiology 12/07/20 15:27 Blood Culture - Preliminary Blood NEGATIVE TO DATE 12/07/20 15:27 Blood Culture - Preliminary Blood NEGATIVE TO DATE 12/08/20 03:50 MRSA Culture - Final Nose 12/07/20 18:19 Gram Stain - Final Sputum - Endotracheal Tube Aspirate 12/07/20 18:40 Bacterial Antigens - Final Urine,Clean Catch Attestation for Other Data: I personally reviewed and interpreted the following: Other data: I have reviewed his laboratory, microbiologic and neurologic data. No specific pathogen from endotracheal tube aspirate. The nasal MRSA PCR is negative. A&P Assessment and plan (1) Acute respiratory failure with hypoxia: The patient is intubated and sedated at this point. He is on volume control mechanical ventilation. I would recommend cutting down and stopping the Versed drip. The patient will likely be ready for extubation tomorrow. We need to reduce his sedation. Post intubation the patient had developed atelectasis. If the patient is able to breathe on his own and have negative pressure ventilation there might be improvement of atelectasis. Status: Acute (2) Acute and chronic respiratory failure with hypercapnia: The patient likely has a baseline PCO2 in the 50s. The patient has acute on chronic hypercapnic respiratory failure. The reason for his chronic hypercapnic respiratory failure is likely obesity hypoventilation syndrome as well as COPD. The patient is currently covered with broad-spectrum antibiotic. Status: Acute (3) Cor pulmonale: We will continue with the diuresis. Status: Acute (4) COPD (chronic obstructive pulmonary disease): We can cut down the Solu-Medrol to 40 mg daily. Continue DuoNeb and Pulmicort nebulization. Status: Acute Attestations Medical Necessity Statement*: Will defer to the primary team Coding Level of Care Code Acute Air Transportation Provider for [facility] Da Diagnoses Acute respiratory failure with hypoxia J96.01 Acute and chronic respiratory failure with hypercapnia J96.22 Cor pulmonale I27.81 COPD (chronic obstructive pulmonary disease) J44.9
[2020-12-08 15:55] LABS: Anion Gap 13.9 (5-19); Blood Urea Nitrogen 47 mg/dL (8-23); Calcium 8.2 mg/dL (8.5-10.5); Carbon Dioxide 31 mmol/L (22-29); Chloride 98 mmol/L (98-107); Glomerular Filtration Rate 54.6 mL/min (90-130); Glucose 140 mg/dL (65-115); Osmolality Calculated 301 mOsm/kg (285-295); Potassium 4.9 mmol/L (3.5-5.1); Sodium 138 mmol/L (136-145)
[2020-12-08] MEDS: levofloxacin-dextrose 5 % 750 MG/150 ML PREMIX 100 MG IV (18:07)
[2020-12-08] MEDS: pantoprazole 40 mg SDV IVP (18:12)
[2020-12-08] MEDS: enoxaparin 40 mg/0.4 mL Syringe SUBCUT (18:13)
--- NOTE | 2020-12-08 18:40 | PC.NURSE ---
Shift summary; Pt remains intubated, sedated and on vent. Fio2 decreased to 50%. Levophed off. Versed now at 2mg/hr, fentanyl at 50mcg/hr and PRopofol at 40mcg/kg/min. US doen on legs for DVTs, no DVTs noted. Pt has had 2300ml of yellow urine output. His , Rahcael has called tow times to check on pt' progress and get updates.
[2020-12-09] VITALS (57 sets, daily range): BP systolic 114–140; BP diastolic 56–77; PULSE 66–90; RESP 14–23; TEMP 36.6–36.9; O2SAT 90–96
[2020-12-09] MEDS: ipratropium-albuterol 3 mL Neb INHALATION ×7 (00:48→23:01)
[2020-12-09] MEDS: propofol 1,000 MG/100 ML INJ 46.3 MG IV (01:01)
[2020-12-09] MEDS: bumetanide 0.25 mg/mL SDV 4 mL 1 MG IV ×4 (01:33→21:05)
[2020-12-09] MEDS: propofol 1,000 MG/100 ML INJ 27.8 MG IV (03:22)
[2020-12-09 04:57] LABS: ABG PH Result 7.38 (7.35-7.45); Arterial Blood Gas Hematocrit 44.7 % (42-52); Blood Gas Allen Test Pos; Blood Gas Operator Identificat JB; Blood Gas Sample Site Radial, right; Blood Gas Sample Type Arterial; HCO3 ABG 36.8 mmol/L (22-26); Oxygen Device VENT; PO2 ABG 61.6 mmHg (80.0-100.0)
[2020-12-09 04:58] LABS: ABG PCO2 62.8 mmHg (35-45)
[2020-12-09 05:09] LABS: Basophils % 0.1 %; Eosinophils % 0.2 %; Hemoglobin 14.1 g/dL (11.7-16.6); Lymphocytes # 0.8 10^3/uL (0.8-4.8); Lymphocytes % 6.3 %; Mean Corpuscular HGB Conc 31.3 g/dL (30.0-36.0); Mean Corpuscular Hemoglobin 30.7 pg (28.0-34.0); Mean Platelet Volume 9.3 fL (7.4-10.4); Neutrophils # 10.15 10^3/uL (1.8-7.7); Neutrophils % 84.5 %; Nucleated Red Blood Cells % 0.3 %; Platelet Count 266 10^3/cmm (130-400); Red Blood Count 4.59 10^6/uL (4.1-5.3); Red Cell Distribution Width 15.4 % (12.1-15.1)
[2020-12-09 05:20] LABS: Lactate (Lactic Acid level) 2.1 mmol/L (0.5-2.2)
[2020-12-09 05:27] LABS: Alanine Aminotransferase 61 U/L (0-41); Albumin Level 3.1 g/dL (3.5-5.2); Alkaline Phosphatase 107 IU/L (40-130); Anion Gap 12.6 (5-19); Aspartate Amino Transferase 27 U/L (0-40); Blood Urea Nitrogen 54 mg/dL (8-23); Carbon Dioxide 34 mmol/L (22-29); Chloride 96 mmol/L (98-107); Globulin 2.8 g/dL (1.3-4.6); Glomerular Filtration Rate 46.3 mL/min (90-130); Glucose 102 mg/dL (65-115); Magnesium 2.2 mg/dL (1.7-2.3); Osmolality Calculated 301 mOsm/kg (285-295); Phosphorus 4.8 mg/dL (2.5-4.5); Potassium 4.6 mmol/L (3.5-5.1); Sodium 138 mmol/L (136-145); Total Bilirubin 0.4 mg/dL (0.15-1.2); Total Protein 5.9 g/dL (6.6-8.7)
[2020-12-09 05:31] LABS: NT Pro B Type Natriuretic Pept 909 pg/mL (0-125)
--- NOTE | 2020-12-09 07:00 | XR_ITS ---
WS: [id number] Portable AP upright chest, 12/09/2020 Clinical Data: sob Comparison: Portable chest, 12/08/2020 Findings: The endotracheal tube and nasogastric tube remain in the same position. The heart is enlarg ed. There is a left pleural effusion has decreased. The patchy opacity along the left cardiac border has improved. There is patchy opacity over the surface of the right diaphragm. The right upper lobe o pacity has cleared. Monitor leads are on the chest wall. XR/XR chest 1V portable [id number] Impression: 1. Clearing of right upper lobe opacity and decrease in left pleural effusion. 2. No change in right lower lobe opacity. 3. Cardiomegaly. 4. No change in endotracheal tube and nasogastric tube.
--- NOTE | 2020-12-09 08:06 | PC.OT ---
OT NOTE: OT EVALUATION HELD PATIENT CONTINUES TO BE ON VENT AND SEDATED. WILL ATTEMPT AGAIN AT A LATER TIME.
--- NOTE | 2020-12-09 08:46 | PC.CHAP ---
Pastoral Care Encounter/Spiritual Assessment Type of Contact [] Declined ornamental iron worker helper visit [] Patient/Family/Request visit [] Outpatient visit [] Follow-up visit [] Physician referral [] Code/Alert [x] Routine visit [] Staff referral [] Actively dying [] Patient sleeping [] Family support [] [] Out of room [] Palliative care [] [] Receiving care in room [] Pre-surgical visit [] Trauma [] Long length of stay [x] ICU visit [x] Other:ventilator Relational/Emotional Strength [] Patient feels connected with others/family/visitors/staff [] Distress [] Loneliness/isolation [] Abandonment Spirituality of Patient [] Person of Charu [] Attends Denominational of their Charu [] Believes in Prayer [] Reads Bible or Orthodox materials [] There are Spiritual issues to be addressed Coppersmith Apprentice Interventions [x Prayer [] Active listening [] Non-anxious presence [] Spiritual/emotional support [] Crisis/trauma care [] Spiritual counseling [] Bereavement support [] Provided bereavement packet [] Provided Bible/devotional materials [] Provided toy/stuffed animal, coloring book to patient or family member [] Provided Communion [] Anointing/[place] [] Salvation [x] Completed spiritual assessment [] Other: Impact on Illness or Injury [] Angry [] Fearful [] Anxious [] Often cries [] Exhaustion [] Unable to work [] Unable to attend mormon [] Unable to walk/stand [] Unable to read [] Unable to drive [] Unable to eat/drink [] Unable to sleep [] Unable to be with family [] Patient intubated [] Other: Summary Time spent with patient
[2020-12-09] MEDS: aspirin 81 mg Chew Tablet PO (08:47)
[2020-12-09] MEDS: allopurinol 100 mg Tablet PO (08:47)
[2020-12-09] MEDS: doxazosin 4 mg Tablet 2 MG PO ×2 (08:48→17:57)
[2020-12-09] MEDS: spironolactone 25 mg Tablet PO (08:54)
[2020-12-09] MEDS: metOLazone 5 MG Tablet 10 MG PO (08:54)
[2020-12-09] MEDS: finasteride 5 mg Tablet PO (08:54)
--- NOTE | 2020-12-09 11:50 | PM.PN ---
Subjective Subjective: Interval history: Patient was examined this morning, he was afebrile overnight, he diuresed quite well, continues to have generalized anasarca,, bilateral lower extremity edema, but improved, he is off Levophed, he is off Versed, only on propofol and fentanyl for sedation, which are being weaned down, he does withdraw from pain, pupils are pinpoint, he does resist eye opening, plan is extubation hopefully today Vitals/I&O/Wt Last Vital Signs Temp 97.8 F 12/09/20 05:58 Pulse 83 12/09/20 11:25 Resp 16 12/09/20 11:14 BP 120/60 12/09/20 04:00 Pulse Ox 91 12/09/20 11:35 12/08/20 12/09/20 12/09/20 22:59 06:59 14:59 Intake Total 564.6 / 1566.142 192.149 / 1758.291 233.933 / 233.933 Output Total 550 / 2300 1750 / 4050 1150 / 1150 Balance 14.6 / -733.858 -1557.851 / -2291.709 -916.067 / -916.067 Physical Exam Const: COMMON NORMALS: no acute distress OTHER: Intubated, sedated, does withdraw from pain, pupils pinpoint bilaterally, does resist eye opening Neck/C-Spine: COMMON NORMALS: no JVD Chest: COMMONS NORMALS: normal inspection of the chest Resp: COMMON NORMALS: normal respiratory effort, No use of accessory muscles and clear to auscultation bilaterally AUSCULTATION: clear to auscultation bilaterally and crackles Cardio: COMMON NORMALS: no JVD, regular rate, regular rhythm, S1 normal heart sound present and S2 normal heart sound present RATE: regular rate RHYTHM: regular rhythm HEART SOUNDS: S1 normal heart sound present and S2 normal heart sound present GI: COMMON NORMALS: Soft to palpation INSPECTION: Yes normal to inspection and Yes abdominal distension PALPATION: Yes Soft to palpation, No Firmness to palpation present (GI), No Tenderness to palpation present (GI), No Guarding due to palpation present (GI) and No Rigid due to palpation OTHER: Lower pannus, slight edema, erythema Extremity: NARRATIVE EXTREMITY EXAM: Bilateral lower extremity 1+ pitting edema, right sosa, area of erythema Urinary Catheter Management^: Barnes: Cath Placed During This Visit: yes Reason for Continuing Indwelling Catheter: Accurate Measurement of Urinary Output in Critically Ill Patients Urinary Catheter Date of Insertion: 12/07/20 Urinary Catheter Time of Insertion: 19:00 Data : 12/09/20 04:15 12/09/20 04:15 Micro: Microbiology 12/07/20 18:19 Gram Stain - Final Sputum - Endotracheal Tube Aspirate Sputum Culture - Preliminary Gram Negative Rods 12/07/20 15:27 Blood Culture - Preliminary Blood NEGATIVE TO DATE 12/07/20 15:27 Blood Culture - Preliminary Blood NEGATIVE TO DATE 12/08/20 03:50 MRSA Culture - Final Nose 12/07/20 18:40 Bacterial Antigens - Final Urine,Clean Catch A&P Assessment and plan (1) Acute respiratory failure with hypoxia and hypercapnia: -Secondary to CHF, obesity hypoventilation syndrome, ALEX, cannot rule out right lower lobe pneumonia, COPD exacerbation -I suspect the patient is chronically hypercarbic secondary to COPD, CHF, obesity hypoventilation, however baseline CO2 unknown -Currently intubated, sedated on the ventilator -pH pH 7.3, PCO2 62.8, PO2 61.7, on 50% -BNP 909, creatinine 1.5, potassium 4.6, urine output 4450 -Plan on extubation today, spontaneous breathing trial, wean off sedation Plan: -Admit to ICU -Pulmonary on consult -Continue ventilator, minimize PEEP, minimize FiO2, Daily spontaneous breathing trials, propofol and fentanyl for sedation -Off Versed, off fentanyl -Bumex 1 mg every 6 hours, with metolazone, repeat BMP in the afternoon -Barnes catheter placement fluid restrictions 1500 cc -Cardiac echo ordered -Bicarb 31, will consider adding Diamox -there is a possibility that there could be a pneumonia, Levaquin for antibiotic coverage -Solu-Medrol 40mg IV every 24 hours -Sputum cultures, blood cultures -Does have bilateral extremity edema, does have a area of cellulitis right lower extremities, ultrasound negative for DVT -Full code -Lovenox for DVT prophylaxis Plan for today, spontaneous breathing trial, continue diuresis, hopefully extubate to BiPAP Status: Acute (2) BPH (benign prostatic hyperplasia): Status: Acute (3) Morbid obesity: Status: Acute (4) Bilateral edema of lower extremity: Status: Acute (5) CHF (congestive heart failure): Status: Acute (6) COPD (chronic obstructive pulmonary disease): Status: Acute (7) Transaminitis: Likely hepatovascular congestion from CHF, will do right upper quadrant ultrasound, hep C, HIV, ferritin Status: Acute (8) Acute kidney injury: Creatinine 1.5, patient's baseline creatinine is unknown, I suspect he has CKD and cardiorenal syndrome, will diurese, monitor creatinine and potassium, urine output Status: Acute (9) Hyperkalemia: Resolved Status: Acute (10) NSTEMI (non-ST elevated myocardial infarction): Likely type II NSTEMI, supply demand ischemia from respiratory failure Monitor troponins, monitor EKGs, 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, monitor for chest pain Continue aspirin, statin Status: Acute (11) Cellulitis of right lower extremity: On Levaquin, will add doxycycline Status: Acute Attestations Medical Necessity Statement*: Patient requires hospitalization, for acute respiratory failure, CHF exacerbation, pneumonia, cellulitis, critical care time spent over 55 minutes Coding Level of Care Code Acute Trade Union Secretary for [facility] Fwd Diagnoses Acute respiratory failure with hypoxia and hypercapnia J96.01; J96.02 BPH (benign prostatic hyperplasia) N40.0 Morbid obesity E66.01 Bilateral edema of lower extremity R60.0 CHF (congestive heart failure) I50.9 COPD (chronic obstructive pulmonary disease) J44.9 Transaminitis R74.01 Acute kidney injury N17.9 Hyperkalemia E87.5 NSTEMI (non-ST elevated myocardial infarction) I21.4 Cellulitis of right lower extremity L03.115
--- NOTE | 2020-12-09 11:54 | PC.NURSE ---
Pt nodded head for consent to speak to his sister, Nohemy Mittal, about his care.
--- NOTE | 2020-12-09 14:15 | PC.NURSE ---
Pt extubated. OO rmove. Now on BiPap at 50% FIO2. 09/05. Tolerating well.
--- NOTE | 2020-12-09 14:21 | PC.NURSE ---
Waste witnessed by Alma Rosa Yost RN: Fentanyl gtt; 7ml, Versed gtt 97 ml.
[2020-12-09 14:35] LABS: Blood Urea Nitrogen 55 mg/dL (8-23); Calcium 7.7 mg/dL (8.5-10.5); Carbon Dioxide 36 mmol/L (22-29); Chloride 96 mmol/L (98-107); Glomerular Filtration Rate 50.1 mL/min (90-130); Glucose 87 mg/dL (65-115); Osmolality Calculated 304 mOsm/kg (285-295); Sodium 140 mmol/L (136-145)
--- NOTE | 2020-12-09 16:28 | PC.RESP ---
SMOKING CESSATION AND PULMONARY REHAB INFORMATION SENT TO PATIENT.
[2020-12-09] MEDS: levofloxacin-dextrose 5 % 750 MG/150 ML PREMIX 100 MG IV (16:54)
[2020-12-09] MEDS: enoxaparin 40 mg/0.4 mL Syringe SUBCUT (17:57)
[2020-12-09] MEDS: pantoprazole 40 mg SDV IVP (17:57)
--- NOTE | 2020-12-09 18:18 | PC.NURSE ---
Shift summary: Sedation stopped this am. Pt remained calm and worked with vent. He was extubated and OG removed 1415. Straight to BIPap at 50%. He tolerated that well, he is now at 40%. He has received 2 doses of Bumex this shift and one of zaroxylyn. Lung sounds are junky this evening right worse than left. He has made 2825 ml of urine today. It [place] 49[address] ml. His edema on his lower extremities has decreased some. His Rachael was here this am. She called to check on his progress this afternoon and was updated about extubation. He has a prayer cloth with him , brought in by his . He has to be reminded to slow down on drinking when water is offered.
--- NOTE | 2020-12-09 19:02 | PC.NURSE ---
Report given to WALDO Harris
--- NOTE | 2020-12-09 23:30 | PC.NURSE ---
ASSUMING CARE Report received from WALDO Mohamud. Patient is resting in bed on BIPAP, 18/10 and 40% FiO2. Patient is alert and oriented to person only and states to nurse that he is in [place] and replies no when asked if he knows the month or the day. Patients saldivar catheter in place and draining and patient denies any needs at this time. Call light in reach.
[2020-12-10] VITALS (44 sets, daily range): BP systolic 119–161; BP diastolic 54–89; PULSE 72–86; RESP 14–20; TEMP 36.8–37.1; O2SAT 90–95
[2020-12-10] MEDS: ipratropium-albuterol 3 mL Neb INHALATION ×6 (03:05→23:07)
[2020-12-10] MEDS: bumetanide 0.25 mg/mL SDV 4 mL 1 MG IV ×4 (04:10→20:27)
[2020-12-10 04:20] LABS: ABG PCO2 59.4 mmHg (35-45); ABG PH Result 7.47 (7.35-7.45); Arterial Blood Gas Hematocrit 44.3 % (42-52); Base Excess ABG 15.8 mmol/L (-2.0-2.0); Blood Gas Allen Test Pos; Blood Gas Operator Identificat JB; Blood Gas Sample Site Radial, right; Blood Gas Sample Type Arterial; HCO3 ABG 42.7 mmol/L (22-26); Oxygen Device BIPAP; PO2 ABG 66.2 mmHg (80.0-100.0)
[2020-12-10 04:56] LABS: Basophils % 0.1 %; Hematocrit 45.1 % (42.0-52.0); Hemoglobin 14.2 g/dL (11.7-16.6); Lymphocytes % 8.6 %; Mean Corpuscular HGB Conc 31.5 g/dL (30.0-36.0); Mean Corpuscular Hemoglobin 30.3 pg (28.0-34.0); Mean Corpuscular Volume 96.4 fL (80-94); Mean Platelet Volume 9.6 fL (7.4-10.4); Monocytes # 1.1 10^3/uL (0.2-0.9); Monocytes % 9.6 %; Neutrophils # 9.45 10^3/uL (1.8-7.7); Neutrophils % 81.1 %; Nucleated Red Blood Cells % 0 %; Platelet Count 241 10^3/cmm (130-400); Red Blood Count 4.68 10^6/uL (4.1-5.3); Red Cell Distribution Width 15.5 % (12.1-15.1); White Blood Count 11.7 10^3/uL (4.0-10.0)
[2020-12-10 05:08] LABS: Lactate (Lactic Acid level) 1.1 mmol/L (0.5-2.2)
[2020-12-10 05:10] LABS: Alanine Aminotransferase 51 U/L (0-41); Albumin Level 3.3 g/dL (3.5-5.2); Alkaline Phosphatase 105 IU/L (40-130); Aspartate Amino Transferase 50 U/L (0-40); Blood Urea Nitrogen 53 mg/dL (8-23); Calcium 8.1 mg/dL (8.5-10.5); Carbon Dioxide 38 mmol/L (22-29); Chloride 93 mmol/L (98-107); Globulin 2.9 g/dL (1.3-4.6); Glomerular Filtration Rate 54.6 mL/min (90-130); Glucose 99 mg/dL (65-115); Magnesium 2.1 mg/dL (1.7-2.3); Osmolality Calculated 302 mOsm/kg (285-295); Phosphorus 4.2 mg/dL (2.5-4.5); Sodium 139 mmol/L (136-145); Total Bilirubin 0.7 mg/dL (0.15-1.2); Total Protein 6.2 g/dL (6.6-8.7)
[2020-12-10 05:18] LABS: NT Pro B Type Natriuretic Pept 1085 pg/mL (0-125)
--- NOTE | 2020-12-10 07:00 | XR_ITS ---
WS: [id number] Portable AP upright chest, 12/10/2020 Clinical Data: sob Comparison: Portable chest, 12/09/2020 Findings: There are still bilateral lower lobe patchy opacities. The heart remains enlarged. No nodul es or masses are seen. The endotracheal tube and nasogastric tube have been removed. Monitor leads ar e on the chest wall. XR/XR chest 1V portable [id number] Impression: 1. Removal of endotracheal tube and nasogastric tube. 2. No change in cardiomegaly and bilateral lower lobe opacities.
[2020-12-10] MEDS: spironolactone 25 mg Tablet 50 MG PO (08:45)
[2020-12-10] MEDS: aspirin 81 mg Chew Tablet PO (08:45)
[2020-12-10] MEDS: finasteride 5 mg Tablet PO (08:45)
[2020-12-10] MEDS: potassium chloride ER 20 mEq Tablet 40 MEQ PO (08:45)
[2020-12-10] MEDS: metOLazone 5 MG Tablet 10 MG PO (08:45)
[2020-12-10] MEDS: allopurinol 100 mg Tablet PO (08:45)
[2020-12-10] MEDS: doxazosin 4 mg Tablet 2 MG PO ×2 (08:57→17:22)
--- NOTE | 2020-12-10 10:21 | PC.SOCIAL ---
Pg 2 IMM. Explained to pt Pg 2 IMM. No questions voiced. Provided pt a copy. Signed, dated, & timed a copy & placed in chart.
--- NOTE | 2020-12-10 11:11 | P.PN_ITS ---
Subjective Subjective: Interval history: Patient was successfully extubated yesterday, onto BiPAP, did well throughout the evening, Patient was examined this morning, currently on BiPAP, is quite thirsty would like to try to drink something, no fevers overnight, he is tolerating BiPAP well, following commands, Vitals/I&O/Wt Last Vital Signs Temp 98.7 F 12/10/20 07:17 Pulse 78 12/10/20 10:00 Resp 15 12/10/20 07:40 BP 153/77 12/10/20 07:17 Pulse Ox 93 12/10/20 07:46 12/09/20 12/10/20 12/10/20 22:59 06:59 14:59 Intake Total 510 / 749.000 Output Total 1675 / 2825 3300 / 6125 Balance -1165 / -2076.000 -3300 / -5376.000 Physical Exam Const: COMMON NORMALS: no acute distress ORIENTATION/CONSCIOUSNESS: Yes awake, Yes oriented to person, Yes oriented to place and Yes oriented to time Neck/C-Spine: COMMON NORMALS: no JVD Chest: COMMONS NORMALS: normal inspection of the chest Resp: COMMON NORMALS: normal respiratory effort, No retractions, No use of a ccessory muscles and clear to auscultation bilaterally AUSCULTATION: clear to auscultation bilaterally Cardio: COMMON NORMALS: no JVD, regular rate, regular rhythm, S1 normal heart sound present and S2 normal heart sound present RATE: regular rate RHYTHM: regular rhythm HEART SOUNDS: S1 normal heart sound present and S2 normal heart sound present GI: COMMON NORMALS: Normal to inspection, nondistended, normoactive bowel sounds present, Soft to palpation and non-tender PALPATION: Yes Soft to palpation Extremity: OTHER: 2+ pitting edema, anasarca Neuro: SENSORIUM/ORIENTATION: Yes oriented to person, Yes oriented to place and Yes oriented to time Urinary Catheter Management^: Barnes: Cath Placed During This Visit: yes Reason for Continuing Indwelling Catheter: Accurate Measurement of Urinary Output in Critically Ill Patients Urinary Catheter Date of Insertion: 12/07/20 Urinary Catheter Time of Insertion: 19:00 Data : 12/10/20 03:45 12/10/20 03:45 Micro: Microbiology 12/07/20 18:19 Gram Stain - Final Sputum - Endotracheal Tube Aspirate Sputum Culture - Preliminary Gram Negative Rods A&P Assessment and plan (1) Acute respiratory failure with hypoxia and hypercapnia: -Secondary to CHF, obesity hypoventilation syndrome, ALEX, cannot rule out right lower lobe pneumonia, COPD exacerbation -I suspect the patient is chronically hypercarbic secondary to COPD, CHF, obesity hypoventilation, however baseline CO2 unknown -Currently intubated, sedated on the ventilator -BNP 1085, PCO2 59, creatinine 1.3, potassium 4.6, urine output 9.4L Plan: -Admit to ICU -Pulmonary on consult -O2 nasal cannula during the day, BiPAP as needed during the day, BiPAP schedule during the night -Bumex 1 mg every 6 hours with metolazone, repeat BMP in the afternoon -Barnes catheter placement fluid restrictions 1500 cc -Cardiac echo ordered -Bicarb 31, will consider adding Diamox -Sputum culture showing gram-negative rods continue Levaquin -Solu-Medrol 40mg IV every 24 hours -Sputum cultures, blood cultures -Does have bilateral extremity edema, does have a area of cellulitis right lower extremities, ultrasound negative for DVT -Full code -Lovenox for DVT prophylaxis Plan for today, continue diuretics, will have speech therapy see patient, PT OT Status: Acute (2) BPH (benign prostatic hyperplasia): Status: Acute (3) Morbid obesity: Status: Acute (4) Bilateral edema of lower extremity: Status: Acute (5) CHF (congestive heart failure): Status: Acute (6) COPD (chronic obstructive pulmonary disease): Status: Acute (7) Transaminitis: Likely hepatovascular congestion from CHF, will do right upper quadrant ultrasound, hep C, HIV, ferritin Status: Acute (8) Acute kidney injury: Creatinine 1.5, patient's baseline creatinine is unknown, I suspect he has CKD and cardiorenal syndrome, will diurese, monitor creatinine and potassium, urine output Status: Acute (9) Hyperkalemia: Resolved Status: Acute (10) NSTEMI (non-ST elevated myocardial infarction): Likely type II NSTEMI, supply demand ischemia from respiratory failure Monitor troponins, monitor EKGs, telemetry personal 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 Critical Care Time: Critical Care Time (min): 45 Coding Level of Care Code Acute Cash Application Clerk for Chg Fwd Diagnoses Acute respiratory failure with hypoxia and hypercapnia J96.01; J96.02 BPH (benign prostatic hyperplasia) N40.0 Morbid obesity E66.01 Bilateral edema of lower extremity R60.0 CHF (congestive heart failure) I50.9 COPD (chronic obstructive pulmonary disease) J44.9 Transaminitis R74.01 Acute kidney injury N17.9 Hyperkalemia E87.5 NSTEMI (non-ST elevated myocardial infarction) I21.4 Cellulitis of right lower extremity L03.115
[2020-12-10] MEDS: doxycycline 100 mg Tablet PO (17:22)
[2020-12-10] MEDS: levofloxacin-dextrose 5 % 750 MG/150 ML PREMIX 100 MG IV (17:22)
[2020-12-10] MEDS: enoxaparin 40 mg/0.4 mL Syringe SUBCUT (17:23)
[2020-12-10] MEDS: pantoprazole 40 mg SDV IVP (17:23)
[2020-12-11] VITALS (26 sets, daily range): BP systolic 94–132; BP diastolic 45–75; PULSE 69–89; RESP 12–19; TEMP 36.5–37; O2SAT 90–94
[2020-12-11] MEDS: bumetanide 0.25 mg/mL SDV 4 mL 1 MG IV ×2 (03:14→15:16)
[2020-12-11] MEDS: ipratropium-albuterol 3 mL Neb INHALATION ×6 (03:39→23:14)
[2020-12-11 05:33] LABS: Basophils % 0.1 %; Eosinophils % 0.3 %; Hematocrit 46.1 % (42.0-52.0); Hemoglobin 14.5 g/dL (11.7-16.6); Lymphocytes # 1.1 10^3/uL (0.8-4.8); Lymphocytes % 10.8 %; Mean Corpuscular HGB Conc 31.5 g/dL (30.0-36.0); Mean Corpuscular Hemoglobin 30.3 pg (28.0-34.0); Mean Corpuscular Volume 96.2 fL (80-94); Mean Platelet Volume 9.5 fL (7.4-10.4); Monocytes # 1.2 10^3/uL (0.2-0.9); Monocytes % 10.9 %; Neutrophils # 8.19 10^3/uL (1.8-7.7); Neutrophils % 77.4 %; Nucleated Red Blood Cells % 0 %; Platelet Count 236 10^3/cmm (130-400); Red Blood Count 4.79 10^6/uL (4.1-5.3); Red Cell Distribution Width 14.6 % (12.1-15.1); White Blood Count 10.6 10^3/uL (4.0-10.0)
[2020-12-11 06:06] LABS: Alanine Aminotransferase 44 U/L (0-41); Albumin Level 3.5 g/dL (3.5-5.2); Alkaline Phosphatase 100 IU/L (40-130); Anion Gap 12.3 (5-19); Aspartate Amino Transferase 49 U/L (0-40); Blood Urea Nitrogen 50 mg/dL (8-23); Calcium 8.5 mg/dL (8.5-10.5); Chloride 89 mmol/L (98-107); Globulin 3.1 g/dL (1.3-4.6); Glomerular Filtration Rate 54.6 mL/min (90-130); Glucose 92 mg/dL (65-115); Magnesium 2.1 mg/dL (1.7-2.3); NT Pro B Type Natriuretic Pept 2120 pg/mL (0-125); Osmolality Calculated 301 mOsm/kg (285-295); Potassium 4.3 mmol/L (3.5-5.1); Sodium 139 mmol/L (136-145); Total Bilirubin 0.9 mg/dL (0.15-1.2); Total Protein 6.6 g/dL (6.6-8.7)
[2020-12-11 06:08] LABS: Carbon Dioxide 42 mmol/L (22-29)
--- NOTE | 2020-12-11 07:00 | XRR_ITS ---
PROCEDURE INFORMATION: Exam: XR Chest Exam date and time: 12/11/2020 12:00 AM Age: 70 years old Clinical indication: Shortness of breath. TECHNIQUE: Imaging protocol: XR of the chest. Views: 1 view. COMPARISON: [place] XR chest 1V portable [id number] 12/10/2020 5:47 AM FINDINGS: Lungs: No significant change in bibasilar airspace disease when allowing for lordotic positioning of the patient on the current study. Thickening of the minor fissure. No septal line formation. Pleural spaces: No large pleural effusion. No pneumothorax. Heart/Mediastinum: The cardiac silhouette is enlarged. The mediastinal contours are normal. Bones/joints: Mild left glenohumeral joint degeneration. XR/XR chest 1V portable [id number] IMPRESSION: No significant change when compared to [place] XR chest 1V portable [id number] 12/10/2020 5:47 AM.
[2020-12-11] MEDS: doxazosin 4 mg Tablet 2 MG PO ×2 (08:28→17:06)
[2020-12-11] MEDS: allopurinol 100 mg Tablet PO (08:28)
[2020-12-11] MEDS: aspirin 81 mg Chew Tablet PO (08:28)
[2020-12-11] MEDS: spironolactone 25 mg Tablet 50 MG PO (08:29)
[2020-12-11] MEDS: doxycycline 100 mg Tablet PO ×2 (08:29→17:06)
[2020-12-11] MEDS: metOLazone 5 MG Tablet 10 MG PO (08:29)
[2020-12-11] MEDS: predniSONE 20 mg Tablet 40 MG PO (08:29)
[2020-12-11] MEDS: finasteride 5 mg Tablet PO (08:29)
[2020-12-11] MEDS: potassium chloride ER 20 mEq Tablet 40 MEQ PO (08:29)
--- NOTE | 2020-12-11 12:01 | P.PN_ITS ---
Subjective Subjective: Interval history: Patient was seen this morning, he is doing well, his breathing has improved, continues to have weakness, he diuresed over 10 L yesterday, no chest pain, no palpitations Vitals/I&O/Wt Last Vital Signs Temp 98.2 F 12/11/20 11:01 Pulse 89 12/11/20 11:22 Resp 18 12/11/20 11:19 BP 110/56 12/11/20 11:01 Pulse Ox 90 12/11/20 11:19 12/10/20 12/11/20 12/11/20 22:59 06:59 14:59 Intake Total 300 / 490 200 / 690 580 / 580 Output Total 2700 / 7300 2850 / 08151 900 / 900 Balance -2400 / -6810 -2650 / -9460 -320 / -320 Physical Exam Const: COMMON NORMALS: no acute distress and patient oriented x3 HENMT: COMMON NORMALS: normocephalic HEAD & SCALP: normocephalic Resp: COMMON NORMALS: normal respiratory effort, No retractions, No use of accessory muscles and clear to auscultation bilaterally AUSCULTATION: clear to auscultation bilaterally Cardio: COMMON NORMALS: regular rate, regular rhythm, S1 normal heart sound present and S2 normal heart sound present RATE: regular rate RHYTHM: regular rhythm HEART SOUNDS: S1 normal heart sound present and S2 normal heart sound present GI: COMMON NORMALS: Normal to inspection, nondistended, normoactive bowel sounds present, Soft to palpation, non-tender, No hepatosplenomegaly present, no masses and no bruits PALPATION: Yes Soft to palpation and Yes No hepatosplenomegaly present Extremity: NARRATIVE EXTREMITY EXAM: 1+ edema, anasarca Neuro: COMMON NORMALS: patient oriented x3 Psych: COMMON NORMALS: mental status grossly normal Urinary Catheter Management^: Barnes: Cath Placed During This Visit: yes Reason for Continuing Indwelling Catheter: Accurate Measurement of Urinary Output in Critically Ill Patients Urinary Catheter Date of Insertion: 12/07/20 Urinary Catheter Time of Insertion: 19:00 Data : 12/11/20 04:42 12/11/20 04:42 Micro: Microbiology 12/07/20 18:19 Gram Stain - Final Sputum - Endotracheal Tube Aspirate Sputum Culture - Final Serratia marcescens A&P Assessment and plan (1) Acute respiratory failure with hypoxia and hypercapnia: -Secondary to CHF, obesity hypoventilation syndrome, ALEX, cannot rule out right lower lobe pneumonia, COPD exacerbation -I suspect the patient is chronically hypercarbic secondary to COPD, CHF, obesit y hypoventilation, however baseline CO2 unknown -Currently intubated, sedated on the ventilator -BNP 2120, creatinine 1.3,urine output over 20 L Plan: -Admit to ICU -Pulmonary on consult -O2 nasal cannula during the day, BiPAP as needed during the day, BiPAP schedule during the night -Patient would clinically benefit from a BiPAP on discharge, will do an overnight pulse ox -Bumex 1 mg every 12 hours with metolazone -Barnes catheter placement fluid restrictions 1500 cc -Cardiac echo ordered -Sputum culture showing Serratia, on Levaquin -Prednisone 40 mg daily -Sputum cultures, blood cultures -Does have bilateral extremity edema, does have a area of cellulitis right lower extremities, ultrasound negative for DVT -Full code -Lovenox for DVT prophylaxis Plan for today, move out of ICU, decrease diuretic, PT OT, continue BiPAP, Status: Acute (2) BPH (benign prostatic hyperplasia): Status: Acute (3) Morbid obesity: Status: Acute (4) Bilateral edema of lower extremity: Status: Acute (5) CHF (congestive heart failure): Status: Acute (6) COPD (chronic obstructive pulmonary disease): Status: Acute (7) Transaminitis: Likely hepatovascular congestion from CHF, will do right upper quadrant ultrasound, hep C, HIV, ferritin Status: Acute (8) Acute kidney injury: Creatinine 1.5, patient's baseline creatinine is unknown, I suspect he has CKD and cardiorenal syndrome, will diurese, monitor creatinine and potassium, urine output Status: Acute (9) Hyperkalemia: Resolved Status: Acute (10) NSTEMI (non-ST elevated myocardial infarction): Likely type II NSTEMI, supply demand ischemia from respiratory failure Monitor troponins, monitor EKGs, telemetry quality assurance monitor final, monitor for chest pain Continue aspirin, statin Status: Acute (11) Cellulitis of right lower extremity: On Levaquin, will add doxycycline Status: Acute Attestations Medical Necessity Statement*: Patient requires hospitalization, for acute respiratory failure with hypercapnia secondary to CHF, right lower lobe pneumonia, also with cellulitis, Coding Level of Care Code Acute Line Out Man for g Fwd Diagnoses Acute respiratory failure with hypoxia and hypercapnia J96.01; J96.02 BPH (benign prostatic hyperplasia) N40.0 Morbid obesity E66.01 Bilateral edema of lower extremity R60.0 CHF (congestive heart failure) I50.9 COPD (chronic obstructive pulmonary disease) J44.9 Transaminitis R74.01 Acute kidney injury N17.9 Hyperkalemia E87.5 NSTEMI (non-ST elevated myocardial infarction) I21.4 Cellulitis of right lower extremity L03.115
[2020-12-11] MEDS: pantoprazole 40 mg SDV IVP (17:07)
[2020-12-11] MEDS: enoxaparin 40 mg/0.4 mL Syringe SUBCUT (17:07)
[2020-12-11] MEDS: levofloxacin-dextrose 5 % 750 MG/150 ML PREMIX 100 MG IV (17:13)
--- NOTE | 2020-12-11 18:59 | PC.NURSE ---
Report to Karissa HAAS at this time.
[2020-12-12] VITALS (24 sets, daily range): BP systolic 118–134; BP diastolic 61–80; PULSE 67–88; RESP 15–18; TEMP 36.4–36.8; O2SAT 90–95
[2020-12-12] MEDS: bumetanide 0.25 mg/mL SDV 4 mL 1 MG IV ×2 (02:53→15:21)
[2020-12-12] MEDS: ipratropium-albuterol 3 mL Neb INHALATION ×6 (03:01→23:29)
[2020-12-12 05:59] LABS: Basophils # 0.1 10^3/uL (0.0-0.1); Basophils % 0.4 %; Eosinophils # 0.5 10^3/uL (0.0-0.8); Eosinophils % 3.9 %; Hemoglobin 14.6 g/dL (11.7-16.6); Lymphocytes # 1.9 10^3/uL (0.8-4.8); Lymphocytes % 15.3 %; Mean Corpuscular HGB Conc 31.1 g/dL (30.0-36.0); Mean Corpuscular Hemoglobin 30.5 pg (28.0-34.0); Mean Corpuscular Volume 98.1 fL (80-94); Mean Platelet Volume 9.4 fL (7.4-10.4); Monocytes # 1.3 10^3/uL (0.2-0.9); Monocytes % 10.1 %; Neutrophils # 8.84 10^3/uL (1.8-7.7); Neutrophils % 69.7 %; Nucleated Red Blood Cells % 0 %; Platelet Count 207 10^3/cmm (130-400); Red Blood Count 4.79 10^6/uL (4.1-5.3); Red Cell Distribution Width 14.4 % (12.1-15.1); White Blood Count 12.7 10^3/uL (4.0-10.0)
[2020-12-12 06:40] LABS: Alanine Aminotransferase 42 U/L (0-41); Albumin Level 3.7 g/dL (3.5-5.2); Alkaline Phosphatase 93 IU/L (40-130); Anion Gap 11.6 (5-19); Aspartate Amino Transferase 36 U/L (0-40); Blood Urea Nitrogen 43 mg/dL (8-23); Calcium 8.9 mg/dL (8.5-10.5); Chloride 89 mmol/L (98-107); Globulin 2.7 g/dL (1.3-4.6); Glomerular Filtration Rate 66.2 mL/min (90-130); Glucose 105 mg/dL (65-115); NT Pro B Type Natriuretic Pept 2141 pg/mL (0-125); Osmolality Calculated 301 mOsm/kg (285-295); Phosphorus 3.2 mg/dL (2.5-4.5); Potassium 3.6 mmol/L (3.5-5.1); Sodium 140 mmol/L (136-145); Total Protein 6.4 g/dL (6.6-8.7)
[2020-12-12 06:42] LABS: Carbon Dioxide 43 mmol/L (22-29)
[2020-12-12] MEDS: finasteride 5 mg Tablet PO (09:06)
[2020-12-12] MEDS: spironolactone 25 mg Tablet 50 MG PO (09:06)
[2020-12-12] MEDS: metOLazone 5 MG Tablet 10 MG PO (09:06)
[2020-12-12] MEDS: aspirin 81 mg Chew Tablet PO (09:06)
[2020-12-12] MEDS: predniSONE 20 mg Tablet 40 MG PO (09:06)
[2020-12-12] MEDS: doxazosin 4 mg Tablet 2 MG PO ×2 (09:06→17:41)
[2020-12-12] MEDS: allopurinol 100 mg Tablet PO (09:07)
[2020-12-12] MEDS: doxycycline 100 mg Tablet PO ×2 (09:07→17:42)
--- NOTE | 2020-12-12 10:17 | PC.SOCIAL ---
Pg 2 IMM. Explained to pt Pg 2 IMM. No questions voiced. Provided pt a copy. Signed, dated, & timed copy in chart.
--- NOTE | 2020-12-12 12:53 | P.PN_ITS ---
Subjective Subjective: Interval history: Patient was seen this morning, he tells me that his edema significantly improved, he is feeling a lot better, no fevers, no chills, no nausea, no vomiting, Vitals/I&O/Wt Last Vital Signs Temp 98.1 F 12/12/20 08:00 Pulse 85 12/12/20 11:46 Resp 18 12/12/20 11:40 BP 118/70 12/12/20 08:00 Pulse Ox 90 12/12/20 11:40 12/11/20 12/12/20 12/12/20 22:59 06:59 14:59 Intake Total 950 / 2130 360 / 360 Output Total 3000 / 3900 1500 / 5400 Balance -2050 / -1770 -1500 / -3270 360 / 360 Physical Exam Const: COMMON NORMALS: no acute distress and patient oriented x3 Resp: COMMON NORMALS: normal respiratory effort, No retractions, No use of accessory muscles and clear to auscultation bilaterally AUSCULTATION: clear to auscultation bilaterally Cardio: COMMON NORMALS: regular rate, regular rhythm, S1 normal heart sound present and S2 normal heart sound present RATE: regular rate RHYTHM: regular rhythm HEART SOUNDS: S1 normal heart sound present and S2 normal heart sound present GI: COMMON NORMALS: Normal to inspection, nondistended, normoactive bowel sounds present, Soft to palpation and non-tender PALPATION: Yes Soft to palpation Extremity: NARRATIVE EXTREMITY EXAM: 1+ pitting edema Neuro: COMMON NORMALS: patient oriented x3 Psych: COMMON NORMALS: mental status grossly normal Urinary Catheter Management^: Barnes: Cath Placed During This Visit: yes Reason for Continuing Indwelling Catheter: Accurate Measurement of Urinary Output in Critically Ill Patients Urinary Catheter Date of Insertion: 12/07/20 Urinary Catheter Time of Insertion: 19:00 Data : 12/12/20 05:35 12/12/20 05:35 A&P Assessment and plan (1) Acute respiratory failure with hypoxia and hypercapnia: -Secondary to CHF, obesity hypoventilation syndrome, ALEX, cannot rule out right lower lobe pneumonia, COPD exacerbation -I suspect the patient is chronically hypercarbic secondary to COPD, CHF, obesity hypoventilation, however baseline CO2 unknown -Currently intubated, sedated on the ventilator -BNP 2120, creatinine 1.1,urine output over 22 L, 1+ edema, on 4L Plan: -Currently on medical floors -O2 nasal cannula during the day, BiPAP as needed during the day, BiPAP schedule during the night -Patient would clinically benefit from a BiPAP on discharge, will do an overnight pulse ox -Bumex 1 mg every 12 hours with metolazone -Barnes catheter placement fluid restrictions 1500 cc, remove in next 24 hours -Cardiac echo ordered, pending -Sputum culture showing Serratia, on Levaquin, finish 7 days of antibiotics -Prednisone 40 mg daily -Sputum cultures, blood cultures -Does have bilateral extremity edema, does have a area of cellulitis right lower extremities, ultrasound negative for DVT -Full code -Lovenox for DVT prophylaxis Plan for today, coutinue diuretic, PT OT, continue BiPAP, hopefully can discharge in the next 24 to 48 hours, Status: Acute (2) BPH (benign prostatic hyperplasia): Status: Acute (3) Morbid obesity: Status: Acute (4) Bilateral edema of lower extremity: Status: Acute (5) CHF (congestive heart failure): Status: Acute (6) COPD (chronic obstructive pulmonary disease): Status: Acute (7) Transaminitis: Likely hepatovascular congestion from CHF, will do right upper quadrant ultrasound, hep C, HIV, ferritin Status: Acute (8) Acute kidney injury: Creatinine 1.5, patient's baseline creatinine is unknown, I suspect he has CKD and cardiorenal syndrome, will diurese, monitor creatinine and potassium, urine output Status: Acute (9) Hyperkalemia: Resolved Status: Acute (10) NSTEMI (non-ST elevated myocardial infarction): Likely type II NSTEMI, supply demand ischemia from respiratory failure Monitor troponins, monitor EKGs, telemetry vehicle monitor technician, monitor for chest pain Continue aspirin, statin Status: Acute (11) Cellulitis of right lower extremity: On Levaquin, will add doxycycline Status: Acute Attestations Medical Necessity Statement*: Patient requires hospitalization for acute respiratory failure, pneumonia, cellulitis, Coding Level of Care Code Acute Edgerman for [facility] Diagnoses Acute respiratory failure with hypoxia and hypercapnia J96.01; J96.02 BPH (benign prostatic hyperplasia) N40.0 Morbid obesity E66.01 Bilateral edema of lower extremity R60.0 CHF (congestive heart failure) I50.9 COPD (chronic obstructive pulmonary disease) J44.9 Transaminitis R74.01 Acute kidney injury N17.9 Hyperkalemia E87.5 NSTEMI (non-ST elevated myocardial infarction) I21.4 Cellulitis of right lower extremity L03.115
--- NOTE | 2020-12-12 13:19 | USCV_ITS ---
Santosh Brownlee Age: 70 Gender: M : 1950 Exam Date: 12/12/2020 15:38 Ordering Phys: Bogdan Lucas MD Technologist: Linette Mujica Exam Location: [facility] [place] Indication: TO SEE ARMSTRONG BP: / HR: 86 Rhythm: Sinus Technical Quality: Adequate MEASUREMENTS (Male / Female) Normal Values 2D ECHO LV Ejection Fraction MOD 2C 52.6 % LV Ejection Fraction 2C AL 53.4 % FINDINGS Left Ventricle Right Ventricle Right Atrium Left Atrium Mitral Valve Aortic Valve Tricuspid Valve Pulmonic Valve Pericardium Aorta CONCLUSIONS Technically difficult study with poor ultrasonic windows and limited visualization despite of use of contrast agent LV systolic function is moderately reduced with EF of 35-40% Regional wall motion abnormalities can not be assessed Avery Franco MD (Electronically Signed) Final Date: 12 Dec 2020 21:36 S
[2020-12-12] MEDS: perflutren protein-a microsphr 0.22 mg/mL SDV 3 mL IV (17:36)
[2020-12-12] MEDS: enoxaparin 40 mg/0.4 mL Syringe SUBCUT (17:43)
[2020-12-12] MEDS: levofloxacin-dextrose 5 % 750 MG/150 ML PREMIX 100 MG IV (17:44)
[2020-12-12] MEDS: pantoprazole 40 mg SDV IVP (17:48)
[2020-12-13] VITALS (22 sets, daily range): BP systolic 113–143; BP diastolic 55–81; PULSE 67–102; RESP 16–20; TEMP 36.4–37.1; O2SAT 90–96
[2020-12-13] MEDS: bumetanide 0.25 mg/mL SDV 4 mL 1 MG IV ×2 (02:49→14:41)
[2020-12-13] MEDS: ipratropium-albuterol 3 mL Neb INHALATION ×6 (03:56→23:34)
[2020-12-13 05:38] LABS: Basophils % 0.3 %; Eosinophils # 0.6 10^3/uL (0.0-0.8); Eosinophils % 4.3 %; Hemoglobin 14.9 g/dL (11.7-16.6); Lymphocytes # 1.8 10^3/uL (0.8-4.8); Mean Corpuscular Hemoglobin 30.1 pg (28.0-34.0); Monocytes # 1.3 10^3/uL (0.2-0.9); Monocytes % 9.2 %; Neutrophils # 10.09 10^3/uL (1.8-7.7); Neutrophils % 72.6 %; Nucleated Red Blood Cells % 0 %; Platelet Count 217 10^3/cmm (130-400); Red Blood Count 4.95 10^6/uL (4.1-5.3); Red Cell Distribution Width 14.2 % (12.1-15.1); White Blood Count 13.9 10^3/uL (4.0-10.0)
[2020-12-13 06:09] LABS: Alanine Aminotransferase 37 U/L (0-41); Albumin Level 3.4 g/dL (3.5-5.2); Alkaline Phosphatase 87 IU/L (40-130); Anion Gap 12.5 (5-19); Aspartate Amino Transferase 32 U/L (0-40); Blood Urea Nitrogen 45 mg/dL (8-23); Chloride 88 mmol/L (98-107); Globulin 3.4 g/dL (1.3-4.6); Glomerular Filtration Rate 66.2 mL/min (90-130); Glucose 100 mg/dL (65-115); NT Pro B Type Natriuretic Pept 1555 pg/mL (0-125); Osmolality Calculated 298 mOsm/kg (285-295); Phosphorus 3.1 mg/dL (2.5-4.5); Potassium 3.5 mmol/L (3.5-5.1); Sodium 138 mmol/L (136-145); Total Bilirubin 0.9 mg/dL (0.15-1.2); Total Protein 6.8 g/dL (6.6-8.7)
[2020-12-13 06:15] LABS: Carbon Dioxide 41 mmol/L (22-29)
[2020-12-13] MEDS: finasteride 5 mg Tablet PO (09:17)
[2020-12-13] MEDS: spironolactone 25 mg Tablet 50 MG PO (09:17)
[2020-12-13] MEDS: potassium chloride ER 20 mEq Tablet 40 MEQ PO (09:17)
[2020-12-13] MEDS: doxycycline 100 mg Tablet PO ×2 (09:17→17:59)
[2020-12-13] MEDS: predniSONE 20 mg Tablet 40 MG PO (09:17)
[2020-12-13] MEDS: allopurinol 100 mg Tablet PO (09:17)
[2020-12-13] MEDS: metOLazone 5 MG Tablet 10 MG PO (09:17)
[2020-12-13] MEDS: doxazosin 4 mg Tablet 2 MG PO ×2 (09:18→17:59)
[2020-12-13] MEDS: aspirin 81 mg Chew Tablet PO (09:18)
--- NOTE | 2020-12-13 15:35 | P.PN_ITS ---
Subjective Subjective: Interval history: no acute events overnight denies fevers, chills, nausea Medications: Reviewed: Yes Vitals/I&O/Wt Last Vital Signs Temp 98.7 F 12/13/20 12:00 Pulse 102 H 12/13/20 15:26 Resp 18 12/13/20 15:15 BP 125/78 12/13/20 12:00 Pulse Ox 92 12/13/20 15:15 12/13/20 12/13/20 12/13/20 06:59 14:59 22:59 Intake Total 960 / 960 Output Total 1600 / 4800 1000 / 1000 Balance -1600 / -3330 -40 / -40 Physical Exam Const: COMMON NORMALS: no acute distress and patient oriented x3 Resp: COMMON NORMALS: normal respiratory effort and No retractions Cardio: COMMON NORMALS: regular rate and regular rhythm RATE: regular rate RHYTHM: regular rhythm GI: COMMON NORMALS: Soft to palpation and non-tender PALPATION: Yes Soft to palpation Neuro: COMMON NORMALS: patient oriented x3 Urinary Catheter Management^: Barnes: Cath Placed During This Visit: yes Reason for Continuing Indwelling Catheter: Other Urinary Catheter Date of Insertion: 12/07/20 Urinary Catheter Time of Insertion: 19:00 Data : 12/13/20 05:29 12/13/20 05:29 Micro: Microbiology 12/07/20 15:27 Blood Culture - Final Blood NO GROWTH AFTER 5 DAYS 12/07/20 15:27 Blood Culture - Final Blood NO GROWTH AFTER 5 DAYS A&P Assessment and plan (1) Acute and chronic respiratory failure with hypercapnia: Status: Acute (2) Cellulitis of right lower extremity: Status: Acute (3) NSTEMI (non-ST elevated myocardial infarction): Status: Acute (4) Transaminitis: Status: Acute (5) CHF (congestive heart failure): Status: Acute (6) COPD (chronic obstructive pulmonary disease): Status: Acute Additional A&P Information #acute respiratory failure --2/2 CHF --improved --taper o2 --continue diuresis --Nebs --monitor I/O #NSTEMI --likely demand ischemia #Edema --improved #cellulitis --abx #RUBINA --resolved Attestations Medical Necessity Statement*: [facility]'s hospital stay will require greater than 2 midnights for sob Coding Level of Care Code Acute Counter Professional for Chg Fwd Diagnoses Acute and chronic respiratory failure with hypercapnia J96.22 Cellulitis of right lower extremity L03.115 NSTEMI (non-ST elevated myocardial infarction) I21.4 Transaminitis R74.01 CHF (congestive heart failure) I50.9 COPD (chronic obstructive pulmonary disease) J44.9
[2020-12-13] MEDS: levofloxacin-dextrose 5 % 750 MG/150 ML PREMIX 100 MG IV (17:59)
[2020-12-13] MEDS: pantoprazole DR 40 mg Tablet PO (17:59)
[2020-12-13] MEDS: enoxaparin 40 mg/0.4 mL Syringe SUBCUT (17:59)
[2020-12-14] VITALS (21 sets, daily range): BP systolic 116–143; BP diastolic 67–86; PULSE 77–99; RESP 12–18; TEMP 36.5–37.1; O2SAT 92–97
[2020-12-14] MEDS: ipratropium-albuterol 3 mL Neb INHALATION ×6 (03:04→23:03)
[2020-12-14] MEDS: bumetanide 0.25 mg/mL SDV 4 mL 1 MG IV ×2 (03:13→14:34)
[2020-12-14] MEDS: doxycycline 100 mg Tablet PO ×2 (09:27→17:14)
[2020-12-14] MEDS: finasteride 5 mg Tablet PO (09:27)
[2020-12-14] MEDS: predniSONE 20 mg Tablet 40 MG PO (09:28)
[2020-12-14] MEDS: aspirin 81 mg Chew Tablet PO (09:28)
[2020-12-14] MEDS: spironolactone 25 mg Tablet 50 MG PO (09:28)
[2020-12-14] MEDS: metOLazone 5 MG Tablet 10 MG PO (09:28)
[2020-12-14] MEDS: potassium chloride ER 20 mEq Tablet 40 MEQ PO (09:28)
[2020-12-14] MEDS: allopurinol 100 mg Tablet PO (09:28)
[2020-12-14] MEDS: doxazosin 4 mg Tablet 2 MG PO ×2 (09:30→17:13)
--- NOTE | 2020-12-14 10:44 | PC.SOCIAL ---
*IMM UPDATE* Gave patient IMM update. Provided him copy of pg 2. Verbalized understanding. 12/14/20 @ 0902 Initialed, dated, timed and placed in chart.
[2020-12-14 11:06] LABS: Basophils % 0.4 %; Eosinophils # 0.5 10^3/uL (0.0-0.8); Eosinophils % 4.3 %; Hematocrit 48.4 % (42.0-52.0); Hemoglobin 15.2 g/dL (11.7-16.6); Lymphocytes # 1.7 10^3/uL (0.8-4.8); Lymphocytes % 15.3 %; Mean Corpuscular HGB Conc 31.4 g/dL (30.0-36.0); Mean Corpuscular Hemoglobin 30.5 pg (28.0-34.0); Mean Platelet Volume 9.6 fL (7.4-10.4); Monocytes # 1.3 10^3/uL (0.2-0.9); Monocytes % 11.4 %; Neutrophils % 68.1 %; Nucleated Red Blood Cells % 0 %; Platelet Count 193 10^3/cmm (130-400); Red Blood Count 4.99 10^6/uL (4.1-5.3); Red Cell Distribution Width 14.4 % (12.1-15.1); White Blood Count 11.2 10^3/uL (4.0-10.0)
--- NOTE | 2020-12-14 11:36 | PC.NURSE ---
updated patient's on patient's night.
[2020-12-14 11:58] LABS: Alanine Aminotransferase 40 U/L (0-41); Albumin Level 3.6 g/dL (3.5-5.2); Alkaline Phosphatase 87 IU/L (40-130); Blood Urea Nitrogen 52 mg/dL (8-23); Calcium 9.5 mg/dL (8.5-10.5); Carbon Dioxide 37 mmol/L (22-29); Chloride 90 mmol/L (98-107); Globulin 3.1 g/dL (1.3-4.6); Glomerular Filtration Rate 73.9 mL/min (90-130); Glucose 116 mg/dL (65-115); NT Pro B Type Natriuretic Pept 917 pg/mL (0-125); Osmolality Calculated 301 mOsm/kg (285-295); Sodium 138 mmol/L (136-145); Total Bilirubin 0.8 mg/dL (0.15-1.2); Total Protein 6.7 g/dL (6.6-8.7)
[2020-12-14 12:27] LABS: Anion Gap 14.9 (5-19); Aspartate Amino Transferase 34 U/L (0-40); Potassium 3.9 mmol/L (3.5-5.1)
--- NOTE | 2020-12-14 16:11 | PM.PN ---
Subjective Subjective: Interval history: feels about the same currently on 4L O2 NC Medications: Reviewed: Yes Vitals/I&O/Wt Last Vital Signs Temp 98.1 F 12/14/20 15:51 Pulse 87 12/14/20 15:51 Resp 18 12/14/20 15:51 BP 143/86 12/14/20 15:51 Pulse Ox 94 12/14/20 15:51 12/14/20 12/14/20 12/14/20 06:59 14:59 22:59 Intake Total 840 / 840 Output Total 1075 / 3875 450 / 450 Balance -1075 / -2525 390 / 390 Physical Exam Const: COMMON NORMALS: no acute distress and patient oriented x3 Resp: COMMON NORMALS: normal respiratory effort and No retractions Cardio: COMMON NORMALS: regular rate and regular rhythm RATE: regular rate RHYTHM: regular rhythm GI: COMMON NORMALS: Soft to palpation and non-tender PALPATION: Yes Soft to palpation Extremity: COMMON NORMALS: normal to inspection and full ROM Neuro: COMMON NORMALS: patient oriented x3 and CN's II-XII intact bilaterally Urinary Catheter Management^: Barnes: Cath Placed During This Visit: yes Reason for Continuing Indwelling Catheter: Acute Urinary Retention or Obstruction Urinary Catheter Date of Insertion: 12/07/20 Urinary Catheter Time of Insertion: 19:00 Data : 12/14/20 10:52 12/14/20 10:52 A&P Assessment and plan (1) Acute and chronic respiratory failure with hypercapnia: Status: Acute (2) NSTEMI (non-ST elevated myocardial infarction): Status: Acute (3) Acute kidney injury: Status: Acute (4) Transaminitis: Status: Acute (5) CHF (congestive heart failure): Status: Acute Additional A&P Information #acute respiratory failure --2/2 CHF --improved --taper o2 --continue diuresis --Nebs --monitor I/O #NSTEMI --likely demand ischemia #Edema --improved #cellulitis --abx #RUBINA --resolved Attestations Medical Necessity Statement*: [facility]'s hospital stay will require greater than 2 midnights for hypoxemia Coding Level of Care Code Acute Sound Truck Operator for [facility] Diagnoses Acute and chronic respiratory failure with hypercapnia J96.22 NSTEMI (non-ST elevated myocardial infarction) I21.4 Acute kidney injury N17.9 Transaminitis R74.01 CHF (congestive heart failure) I50.9
[2020-12-14] MEDS: levofloxacin-dextrose 5 % 750 MG/150 ML PREMIX 100 MG IV (17:13)
[2020-12-14] MEDS: enoxaparin 40 mg/0.4 mL Syringe SUBCUT (17:14)
[2020-12-14] MEDS: pantoprazole DR 40 mg Tablet PO (17:14)
[2020-12-15] VITALS (18 sets, daily range): BP systolic 108–127; BP diastolic 64–78; PULSE 71–96; RESP 16–19; TEMP 36.6–37.1; O2SAT 86–97
[2020-12-15] MEDS: ipratropium-albuterol 3 mL Neb INHALATION ×4 (03:08→15:00)
[2020-12-15] MEDS: bumetanide 0.25 mg/mL SDV 4 mL 1 MG IV ×2 (04:28→15:16)
[2020-12-15] MEDS: allopurinol 100 mg Tablet PO (07:48)
[2020-12-15] MEDS: spironolactone 25 mg Tablet 50 MG PO (07:48)
[2020-12-15] MEDS: finasteride 5 mg Tablet PO (07:48)
[2020-12-15] MEDS: doxycycline 100 mg Tablet PO (07:48)
[2020-12-15] MEDS: metOLazone 5 MG Tablet 10 MG PO (07:48)
[2020-12-15] MEDS: predniSONE 20 mg Tablet 40 MG PO (07:49)
[2020-12-15] MEDS: potassium chloride ER 20 mEq Tablet 40 MEQ PO (07:49)
[2020-12-15] MEDS: doxazosin 4 mg Tablet 2 MG PO (07:49)
[2020-12-15] MEDS: aspirin 81 mg Chew Tablet PO (07:50)
--- NOTE | 2020-12-15 15:37 | P.DS_ITS ---
Discharge Providers Date of Admission: 12/07/20 16:42 Date of Discharge: December 15, 2020 Attending Provider at Admission: Bogdan Lucas MD Attending Provider at Discharge: Antoinette Shi MD Primary Care Provider: YOGESH Tinoco Diagnoses at Discharge Discharge Diagnosis (1) Acute and chronic respiratory failure with hypercapnia: Status: Acute (2) NSTEMI (non-ST elevated myocardial infarction): Status: Acute (3) Acute kidney injury: Status: Acute (4) Transaminitis: Status: Acute (5) CHF (congestive heart failure): Status: Acute Reason for Visit Reason for Visit: abnormal oxygen levels Hospital Course Hospital Course History and physical Santosh Jesus Brownlee is a 70 year old male with a past medical history of COPD, last PFT showed moderate obstruction, chronic smoker for over 50 years, history of CHF, Lasix, history of bilateral extreme edema, history of lymphedema, history of right lower extremity cellulitis for which he has been on antibiotics, gout, BPH, who presents to [facility] due to shortness of breath, and hypoxia. Currently patient is on the BiPAP, provide some history but mostly history was provided by patient's at bedside. Patient tells me that for the last 2 weeks patient has been had increased shortness of breath, he has had a slow decline in his shortness of breath, she tells me that a year ago he was able to work without feeling significantly short of breath, now he short of breath with minimal exertion, he can only lie flat for a few hours, then has to sleep in the recliner, frequently wakes up in the middle the night short of breath, has bilateral lower extremity edema for which she is on Lasix therapy, he has been on 40 mg once daily for some time, no history of CAD, no history of stress test, history of CABG. patient's denies any recent fevers, has a chronic cough, no recent travel, known exposure to COVID-19, did n ot receive flu vaccine, did not receive Covid vaccine, did not receive pneumonia vaccine. Here in the emergency room patient was found to have hypercarbic respiratory failure with hypoxia, was placed on BiPAP, however had worsening pH and PCO2, so his BiPAP settings were changed to AVAPS 16/8, his repeat ABG is pending. Currently he is alert oriented x3, follows all commands, tells me on the BiPAP that is feeling better. Work-up in the ER shows a BNP over 2000, patient is grossly edematous, no wheezing on exam, decreased aeration of bilateral lung martini, BMI is 50, increased neck circumference. He also has his right lower extremity wrapped in bandage, for his area of cellulitis. Hospital course: The patient was admitted for acute respiratory failure with hypoxemia and hypercapnia. Admit to the ICU. Pulmonary was consulted. BiPAP was continued. Sputum cultures were obtained as well as blood cultures. Placed on empiric antibiotics. He was also diuresed given steroids The patient was transitioned to steroids. Orally as well as given oxygen via nasal cannula. At time of discharge he was still on 3 to 4 L. He was prescribed prednisone as well as oxygen as well as oral antibiotics. Noted to also have an elevated troponin thought to be secondary to demand ischemia. Recommend to follow-up with PCP in 1 week with consideration of follow-ups with pulmonary as well as cardiology Physical Exam Const: COMMON NORMALS: no acute distress Resp: COMMON NORMALS: No retractions and No use of accessory muscles GI: COMMON NORMALS: Soft to palpation and non-tender PALPATION: Yes Soft to palpation Extremity: OTHER: edema, venous stasis, with wrinkling Urinary Catheter Management^: Barnes: Cath Placed During This Visit: yes Reason for Continuing Indwelling Catheter: Acute Urinary Retention or Obstruction Urinary Catheter Date of Insertion: 12/07/20 Urinary Catheter Time of Insertion: 19:00 Discharge Data Data Completed and Pending: Completed Studies During Hospitalization Category Date Time Status XR chest 1V jackelyn ble [id number] Routine Exams 12/08/20 08:11 Completed XR chest 1V jackelyn ble [id number] Routine Exams 12/09/20 07:00 Completed XR chest 1V jackelyn ble [id number] Routine Exams 12/10/20 07:00 Completed XR chest 1V jackelyn ble [id number] Routine Exams 12/11/20 07:00 Completed XR chest 1V jackelyn ble [id number] Stat Exams 12/07/20 11:13 Completed XR chest 1V jackelyn ble [id number] Stat Exams 12/07/20 18:09 Completed CV echo complete* [id number] Routine Ultrasound 12/08/20 06:00 Completed CV echo lmt wo/w contras [id number] Rout ine Ultrasound 12/12/20 13:19 [place] [id number] Routin e Ultrasound 12/08/20 06:00 Completed US abdomen limite d [id number] Routine Ultrasound 12/08/20 06:00 Completed US/CV paperwork R outine Ultrasound 12/12/20 Completed Vitals: Last Vital Signs Temp 98.7 F 12/15/20 15:31 Pulse 96 12/15/20 15:31 Resp 18 12/15/20 15:31 BP 121/78 12/15/20 15:31 Pulse Ox 92 12/15/20 15:31 Discharge Plan Discharge Patient Disposition: Home Condition: Stable Prescriptions: New spironolactone 25 mg Tablet 50 mg PO DAILY Qty: 30 RF: 0 prednisone 10 mg tablet See Rx Instructions .ROUTE .COMPLEX Qty: 30 RF: 0 metolazone 5 mg Tablet 10 mg PO DAILY Qty: 30 RF: 0 pantoprazole 40 mg Tablet,Delayed Release (Dr/Ec) 40 mg PO Q24H Qty: 30 RF: 0 cefdinir 300 mg capsule 300 mg PO BID 5 Days Qty: 10 RF: 0 Continued atenolol 25 mg tablet 50 mg PO DAILY RF: 0 multivitamin Tablet 1 tab PO DAILY RF: 0 albuterol sulfate 90 mcg/actuation HFA aerosol inhaler 2 inh INHALATION Q4-5H PRN (Reason: SOB) RF: 0 ipratropium-albuterol 0.5 mg-3 mg(2.5 mg base)/3 mL solution for nebulization 3 ml INHALATION QID RF: 0 ondansetron HCl [Zofran] 4 mg tablet 4 mg PO Q6H PRN (Reason: nausea and vomiting) Qty: 20 RF: 0 furosemide 40 mg tablet 40 mg PO DAILY RF: 0 allopurinol 100 mg Tablet 100 mg PO DAILY RF: 0 famotidine 20 mg tablet 20 mg PO DAILY RF: 0 aspirin 81 mg Tablet,Chewable 81 mg PO DAILY RF: 0 finasteride 5 mg tablet 5 mg PO DAILY RF: 0 doxazosin 2 mg tablet 2 mg PO BID RF: 0 Discontinued doxycycline hyclate 100 mg capsule 100 mg PO DAILY RF: 0 Discharge Orders: Discharge Order (Routine); Ordered 12/15/20 Ordered By: Antoinette Shi Other Ambulatory Orders: DME: BIPAP (Order) Location: None Selected Ordered By: Antoinette Shi DME: Oxygen (Order) Location: None Selected Ordered By: Antoinette Shi DME: Francis (Order) Location: None Selected Ordered By: Bogdan Lucas Referrals: [facility] [Outside] Newsome,YOGESH Melgoza [Primary Care Provider] - 12/29/20 8:30 am Discharge Diet: Advance as tolerated Discharge Activity: Resume usual activity Patient Instructions: Opioid Safety Discharge Attestations Time Spent in Discharge Care*: less than 30 min Time Spent in Smoking Cessation: 3 to 10 minutes Quality Metrics Clinical Quality Measures During this hospital stay, did patient experience: None Coding Level of Care Code Acute Chg FW DC note Exam Expanded Problem Focused Diagnoses Acute and chronic respiratory failure with hypercapnia J96.22 NSTEMI (non-ST elevated myocardial infarction) I21.4 Acute kidney injury N17.9 Transaminitis R74.01 CHF (congestive heart failure) I50.9
--- NOTE | 2020-12-15 17:23 | PC.NURSE ---
patient and given discharge instructions. patient and verbalized understanding of instructions. patient's oxygen delivered to room. patient taken to private vehicle via wheelchair by staff. IV removed and intact.
== END 2020-12-15 17:27 | disposition home health service (06) | DRG 208 ==
LOC: ER 11:43 → ICU 12-08 06:50 → MEDSURG 12-11 10:41
PROVIDERS: Admitting Provider Family Medicine; Emergency Provider Family Medicine; PCP Nurse Practitioner Family; Visit Provider Internal Medicine
DX: J96.02 Acute respiratory failure with hypercapnia (principal); J18.9 Pneumonia, unspecified organism; I21.A1 Myocardial infarction type 2; I26.09 Other pulmonary embolism with acute cor pulmonale; L03.115 Cellulitis of right lower limb; E66.2 Morbid (severe) obesity with alveolar hypoventilation; Z68.43 Body mass index [BMI] 50.0-59.9, adult; N17.9 Acute kidney failure, unspecified; J98.11 Atelectasis; J96.01 Acute respiratory failure with hypoxia; J43.9 Emphysema, unspecified; F17.210 Nicotine dependence, cigarettes, uncomplicated; I11.0 Hypertensive heart disease with heart failure; I50.9 Heart failure, unspecified; M10.9 Gout, unspecified; N40.0 Benign prostatic hyperplasia without lower urinary tract symptoms; J96.12 Chronic respiratory failure with hypercapnia; E87.5 Hyperkalemia; Z79.82 Long term (current) use of aspirin; Z79.51 Long term (current) use of inhaled steroids
CPT/HCPCS: 36415; 36600; 51702; 71045; 76705; 80048; 80051; 80053; 80074; 81003; 82330; 82550; 82728; 82803; 82805; 83605; 83735; 83880; 84100; 84145; 84443; 84484; 85025; 85378; 86140; 86403; 87040; 87070; 87077; 87186; 87205; 87641; 87806; 92526; 92610; 93005; 93306; 93970; 94002; 94003; 94640; 94660; 94664; 94760; 94799; 96372; 96374; 96375; 97110; 97116; 97161; 97166; 97530; 97535; 99285; C8924; C9113; J0610; J1650; J1956; J2060; J2250; J2704; J2920; J2930; J3010; J3370; J3490; J7040; J7512; Q9956

== ENCOUNTER → 2021-01-19 11:26 | Outpatient (BNVA) | payer MEDICARE, SELFPAY | PROVIDERS: PCP Nurse Practitioner Family; Referring Provider Nurse Practitioner Family; Visit Provider Internal Medicine Cardiovascular Disease | DX: I50.22 Chronic systolic (congestive) heart failure (principal); R06.02 Shortness of breath; I50.33 Acute on chronic diastolic (congestive) heart failure; I10 Essential (primary) hypertension | CPT/HCPCS: 80048; 83880 ==

== ENCOUNTER → 2021-02-04 10:28 | Outpatient (BNVA) | payer MEDICARE, SELFPAY | PROVIDERS: PCP Nurse Practitioner Family; Visit Provider Internal Medicine Pulmonary Disease | DX: Z20.822 Contact with and (suspected) exposure to COVID-19 (principal) | CPT/HCPCS: 87635 ==

== ENCOUNTER 2021-02-09 09:35 | Outpatient (CLI) | payer MEDICARE, SELFPAY ==
--- NOTE | 2021-02-09 13:30 | PFTS_ITS ---
Date of Study:02/09/21 Date of Dictation: 02/18/21 MECHANICS: Prebronchodilator forced vital capacity (FVC) is reduced . Prebronchodilator forced expiratory volume in one second (FEV1) is moderately reduced 54%. FEV1/FVC is reduced. There is no postbronchodilator study FLOW VOLUME LOOP: Sloping of expiratory limb suggestive of airway obstruction. LUNG VOLUMES: Total lung capacity (TLC) is normal. Residual volume (RV) is increased suggeting severe air trapping 218%. DIFFUSING CAPACITY FOR CARBON MONOXIDE: mildly reduced 65%. . INTERPRETATION: The PFTs consistently with moderate obstructive ventilatory defect. Lung volumes suggest severe air trapping. There is mild gas transfer defect. Correlate clinically. MTDD
== END 2021-02-09 09:36 | disposition home or self-care (01) ==
LOC: RT 09:38
PROVIDERS: PCP Nurse Practitioner Family; Visit Provider Internal Medicine Pulmonary Disease
DX: J96.11 Chronic respiratory failure with hypoxia (principal); J96.12 Chronic respiratory failure with hypercapnia
CPT/HCPCS: 94010; 94618; 94726; 94729

== ENCOUNTER → 2021-06-21 10:31 | Outpatient (BNVA) | payer MEDICARE, SELFPAY | PROVIDERS: PCP Nurse Practitioner Family; Visit Provider Internal Medicine Cardiovascular Disease | DX: I50.22 Chronic systolic (congestive) heart failure (principal); R06.02 Shortness of breath | CPT/HCPCS: 80048; 83880 ==

== ENCOUNTER 2021-07-18 20:00 | Outpatient (CLI) | payer MEDICARE, SELFPAY | END 2021-07-18 20:01 | disposition home or self-care (01) | LOC: SLEEP 07-19 07:58 | PROVIDERS: PCP Nurse Practitioner Family; Visit Provider Internal Medicine Pulmonary Disease | DX: G47.33 Obstructive sleep apnea (adult) (pediatric) (principal) | CPT/HCPCS: 95811 ==

== ENCOUNTER 2021-08-16 13:31 | Outpatient (CLI) | payer MEDICARE, SELFPAY ==
--- NOTE | 2021-08-16 14:15 | USCV_ITS ---
Santosh Brownlee Age: 71 Gender: M : 1950 Exam Date: 08/16/2021 14:08 Ordering Phys: Cheko Barnett MD Technologist: Mich Ovalle [place] [facility] [place] Indication: TIA / Dizziness Risk Factors: Previous Vascular Surgery: Right Brachial BP: / Left Brachial BP: / Right Left Velocity (cm/s) Spectral Plaque Velocity (cm/s) Spectral Plaque Syst/Diast Broadening Syst/Diast Broadening 64.10/ 12.80 Prox CCA 73.60 / 15.80 76.00/ 19.70 Mid CCA 53.80 / 13.70 55.50/ 12.80 Distal CCA 59.80 / 13.70 65.80/ 17.10 Prox ICA 62.40 / 16.20 70.10/ 18.80 Mid ICA 64.10 / 23.10 120.90/26.30 Distal ICA 77.20 / 25.40 88.00 ECA 81.20 1.59 ICA/CCA 1.05 Antegrade Vertebral Antegrade 40.80/ 13.10 cm/s 43.00/ 12.10 cm/s Tri Subclavian Tri 72.30 141.4 0 CONCLUSIONS Right ICA stenosis <50%. Mild atheromatous plaque right carotid bulb/ICA. Left ICA stenosis <50%. Mild atheromatous plaque left carotid bulb/ICA. Normal antegrade Doppler flow noted in the right vertebral artery. Normal antegrade Doppler flow noted in the left vertebral artery. Hunter Alcaraz MD (Electronically Signed) Final Date: 16 August 2021 17:19 S
== END 2021-08-16 13:32 | disposition home or self-care (01) ==
PROVIDERS: PCP Nurse Practitioner Family; Visit Provider Internal Medicine Pulmonary Disease
DX: I25.10 Atherosclerotic heart disease of native coronary artery without angina pectoris (principal); I50.23 Acute on chronic systolic (congestive) heart failure; R42 Dizziness and giddiness; I65.23 Occlusion and stenosis of bilateral carotid arteries
CPT/HCPCS: 93880

== ENCOUNTER → 2021-11-30 09:23 | Outpatient (BNVA) | payer MEDICARE, SELFPAY | PROVIDERS: PCP Nurse Practitioner Family; Visit Provider Internal Medicine Pulmonary Disease | DX: J96.11 Chronic respiratory failure with hypoxia (principal); E66.2 Morbid (severe) obesity with alveolar hypoventilation; I27.81 Cor pulmonale (chronic); I50.23 Acute on chronic systolic (congestive) heart failure; J43.2 Centrilobular emphysema; J96.12 Chronic respiratory failure with hypercapnia; R42 Dizziness and giddiness; Z87.891 Personal history of nicotine dependence; Z12.2 Encounter for screening for malignant neoplasm of respiratory organs | CPT/HCPCS: 99214 ==

== ENCOUNTER → 2021-12-20 10:45 | Outpatient (BNVA) | payer MEDICARE, SELFPAY | PROVIDERS: PCP Nurse Practitioner Family; Visit Provider Internal Medicine Cardiovascular Disease | DX: I11.0 Hypertensive heart disease with heart failure (principal); I50.23 Acute on chronic systolic (congestive) heart failure; G47.33 Obstructive sleep apnea (adult) (pediatric); J96.11 Chronic respiratory failure with hypoxia; J96.12 Chronic respiratory failure with hypercapnia; Z87.891 Personal history of nicotine dependence | CPT/HCPCS: 80048; 83880; 99204 ==

== ENCOUNTER 2022-01-19 07:44 | Outpatient (CLI) | payer MEDICARE, SELFPAY ==
[2022-01-19 08:27] VITALS: BMI 50.2
--- NOTE | 2022-01-19 08:27 | ECG_ITS ---
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 Interpretive Statements NAME OF STUDY: LEXISCAN SESTAMIBI STRESS TEST INDICATION: CHF, PROCEDURE: At the baseline, the EKG revealed normal sinus rhythm with a small Q waves in the inferior leads suggesting old inferior wall NV. Nonspecific EKG changes in the high lateral leads. The baseline blood pressure was mm Hg with a heart rate of beats/min. Lexiscan was infused over a period of 20 seconds. A total of 0.4 milligrams of Lexiscan was infused. The stress phase was continued for a total of 5 minutes. Heart rate at the end of the stress phase was 71 with a blood pressure 129/76. The EKG at the peak infusion revealed some nonspecific T wave changes and. Sestamibi was injected 20 seconds after the Lexiscan infusion. Blood pressure at the end of the recovery phase was 121/74 with a heart rate of 70 per minute. CONCLUSION: 1. Nonspecific EKG changes with the LexiScan infusion 2. No LexiScan induced chest pain or cardiac arrhythmia 3. Normal blood pressure and heart rate response 4. Sestamibi/sestamibi perfusion scan pending; see separate report. Electronically Signed On 01-24-2022 17:57:27 CDT by Elvia Frost M.D. [id number]
--- NOTE | 2022-01-19 08:27 | NMCV_ITS ---
NM nithya perf SPECT r/s* [id number] KemSantosh Age: 71 Gender: M : 1950 Exam Date: 01/19/2022 09:31 Ordering Phys: Elvia Frost MD ([email or web address]) Technologist: RAKESH Jennings Exam Location: [facility] Indications: CHF STRESS TEST [facility] IMAGE PROTOCOL Rest/Stress 1 Lexiscan Day Radiopharmaceutical Dose (mCi) Administration Site Administered by Rest: Tc-99m 11.0 IV RAKESH Jennings Sestamibi Stress:Tc-99m 32.5 IV RAKESH Smith Sestamibi Rest: 19-Jan-2022 60 Discovery 630 Stress: 19-Jan-2022 30 Discovery 630 0.4mg Lexiscan. Supine position only as patient was unable to lay prone. SPECT RESULTS Technical Quality: Excellent Raw Data Analysis: Normal Image Corrections: No attenuation or motion correction applied Summed Stress Score: 14 Summed Rest Score: 8 Summed Difference Score: 6 PERFUSION FINDINGS Moderate area of moderately decreased tracer uptake in the mid and apical inferior, basal and mid inferolateral, apical lateral, apical anterior and LV apex. Significant reversibility was noted in these regions at rest. FUNCTIONAL RESULTS (calculated via Gated SPECT) Stress Image LV EF (%): 37 Stress EDV (mL):169 TID: 0.82 Stress ESV (mL):106 FUNCTIONAL FINDINGS: Segmental wall motion analysis revealed severe diffuse hypokinesia of the septum and the LV apex IMPRESSIONS 1. Myocardial perfusion imaging revealing moderate area of moderately decreased tracer uptake in the inferior, inferolateral and apical regions with a significant reversibility, suggesting myocardial scarring with ischemia, predominantly in the distribution of the left circumflex artery with some involvement of the right coronary artery and left anterior descending artery. 2. Moderately diminished LV ejection fraction of 37%. 3. LV wall motion normalities as mentioned above 4. Moderately dilated LV cavity with an end-systolic volume of 106 mL. No similar previous studies are available for comparison Dr Elvia Frost MD [facility] (Electronically Signed) Final Date: 24 January 2022 08:02 S
[2022-01-19] MEDS: regadenoson 0.4 Mg/5 ml Syringe IVP (10:07)
[2022-01-19 10:16] VITALS: BP 121/74; PULSE 69
== END 2022-01-19 07:45 | disposition home or self-care (01) ==
LOC: CDL 07:45
PROVIDERS: PCP Nurse Practitioner Family; Visit Provider Internal Medicine Cardiovascular Disease
DX: I50.9 Heart failure, unspecified (principal)
CPT/HCPCS: 78452; 93017; A9500; J2785

== ENCOUNTER 2022-01-26 14:11 | Outpatient (CLI) | payer MEDICARE, SELFPAY ==
--- NOTE | 2022-01-26 14:15 | USCV_ITS ---
Santosh Brownlee Age: 71 Gender: M : 1950 Exam Date: 01/26/2022 14:36 Ordering Phys: Elvia Frost MD ([email or web address]) Technologist: Jose Juan Espino [place] [facility] [place] Indication: ef with contrast BP: 130 / 82 HR: 77 Rhythm: Sinus Technical Quality: Adequate MEASUREMENTS (Male / Female) Normal Values 2D ECHO LV Diastolic Diameter PLAX 7.4 cm 4.2 - 5.9 / 3.9 - 5.3 cm LV Systolic Diameter PLAX 4.7 cm IVS Diastolic Thickness 1.3 cm 0.6 - 1.0 / 0.6 - 0.9 cm IVS Systolic Thickness 2.0 cm LVPW Diastolic Thickness 1.4 cm 0.6 - 1.0 / 0.6 - 0.9 cm LVPW Systolic Thickness 2.0 cm LVOT Diameter 2.1 cm LV Ejection Fraction 2D Teich 64.8 % LV Ejection Fraction MOD 2C 42.5 % LV Ejection Fraction 2C AL 42.1 % LA Diameter 5.3 cm M-MODE Aortic Annulus Diameter 3.9 cm LA Ao Ratio MM 1.5 MV E Point Septal Separation 2.2 cm DOPPLER AV Peak Velocity 116.0 cm/s LVOT Peak Velocity 89.0 cm/s AV Area Cont Eq vti 3.1 cm squared AV Area Cont Eq pk 2.6 cm squared MV Area PHT 5.0 cm squared Mitral E to A Ratio 0.6 MV E' Velocity 27.5 cm/s Mitral E to MV E' Ratio 7.2 Mitral E to LV E' Lateral Ratio 6.8 Mitral E to LV E' Septal Ratio 7.6 TR Peak Velocity 304.0 cm/s TR Peak Gradient 37.0 mmHg TV Peak E Velocity 61.0 cm/s Right Atrial Pressure 3.0 mmHg Pulmonary Artery Systolic Pressu 40.0 mmHg PV Peak Velocity 100.0 cm/s FINDINGS Left Ventricle Normal LV size with ejection fraction of 65%. No gross wall motion abnormalities noted. Echo contrast was used Right Ventricle The right ventricle appears to be mildly dilated with slightly diminished ejection fraction. The right ventricle could not be delineated that well Right Atrium Right atrium not well visualized. Left Atrium Possibly of normal size Mitral Valve Aortic Valve Tricuspid Valve Pulmonic Valve Pericardium Aorta IVC Inferior vena cava not visualized. CONCLUSIONS Normal LV size ejection fraction of 65%. No gross wall motion abnormalities noted. The right ventricle appears to be mildly dilated with slightly diminished ejection fraction. Possibly normal LV left atrial size No pericardial effusion Technically difficult study Echo contrast was used for ejection fraction estimation Dr Elvia Frost MD [facility] (Electronically Signed) Final Date: 26 January 2022 17:18 S
[2022-01-26] MEDS: perflutren protein-a microsphr 0.22 mg/mL SDV 3 mL IV (14:47)
== END 2022-01-26 14:12 | disposition home or self-care (01) ==
PROVIDERS: PCP Nurse Practitioner Family; Visit Provider Internal Medicine Cardiovascular Disease
DX: I42.9 Cardiomyopathy, unspecified (principal); I50.22 Chronic systolic (congestive) heart failure
CPT/HCPCS: C8929

== ENCOUNTER → 2022-02-08 13:39 | Outpatient (BNVA) | payer MEDICARE, SELFPAY | PROVIDERS: PCP Nurse Practitioner Family; Visit Provider Internal Medicine Cardiovascular Disease | DX: I25.5 Ischemic cardiomyopathy (principal); I42.0 Dilated cardiomyopathy; I11.0 Hypertensive heart disease with heart failure; I50.9 Heart failure, unspecified; J96.11 Chronic respiratory failure with hypoxia; J96.12 Chronic respiratory failure with hypercapnia; G47.33 Obstructive sleep apnea (adult) (pediatric); J43.2 Centrilobular emphysema; Z87.891 Personal history of nicotine dependence | CPT/HCPCS: 99214 ==

== ENCOUNTER 2022-03-13 08:15 | Outpatient (CLI) | payer MEDICARE, SELFPAY ==
--- NOTE | 2022-03-13 08:26 | CT_ITS ---
WS: [id number] LDCT LUNG CANCER SCREENING TECHNIQUE: Noncontrast CT of the chest with coronal and sagittal reformatted images. CLINICAL INFORMATION: lung screening COMPARISON: CT chest October 13, 2019 DLP: 79.89 mGy.cm DIvol: Mean CTDIvol: 1.60 (mGy) All CT scans at [facility] use at least one of these dose optimization techniques: automat ed exposure control; mA and/or kV adjustment per patient size (includes targeted exams where dose is matched to clinical indication); or iterative reconstruction. FINDINGS: Mild chronic emphysematous changes. No acute pulmonary infiltrates. Round atelectasis LEFT lower lobe progressed compared to October 13, 2019. This is probably benign and recommend 6 month follow-up.. Yonatan cified granuloma LEFT lower lobe. Mild aortic calcification. Coronary calcification. No mediastinal o r hilar lymphadenopathy. No axillary lymphadenopathy. Tiny LEFT adrenal adenoma 11 mm. Normal RIGHT adrenal gland. Diffuse fatty infiltration liver. Spleni c granulomas. CT/CT lung screening [id number] IMPRESSION: LUNG-RADS: 3-Probably Benign FOLLOW UP: 6 Month LDCT
== END 2022-03-13 08:16 | disposition home or self-care (01) ==
LOC: RAD 08:16
PROVIDERS: PCP Nurse Practitioner Family; Visit Provider Internal Medicine Pulmonary Disease
DX: Z12.2 Encounter for screening for malignant neoplasm of respiratory organs (principal); Z87.891 Personal history of nicotine dependence
CPT/HCPCS: 71271

== ENCOUNTER → 2022-06-01 10:23 | Outpatient (BNVA) | payer MEDICARE, SELFPAY | PROVIDERS: PCP Nurse Practitioner Family; Visit Provider Internal Medicine Pulmonary Disease | DX: J96.11 Chronic respiratory failure with hypoxia (principal); J96.12 Chronic respiratory failure with hypercapnia; I25.5 Ischemic cardiomyopathy; I42.0 Dilated cardiomyopathy; J43.2 Centrilobular emphysema; I50.23 Acute on chronic systolic (congestive) heart failure; E66.2 Morbid (severe) obesity with alveolar hypoventilation; I27.81 Cor pulmonale (chronic); R42 Dizziness and giddiness; Z68.42 Body mass index [BMI] 45.0-49.9, adult; Z87.891 Personal history of nicotine dependence | CPT/HCPCS: 99214 ==

== ENCOUNTER → 2022-08-08 12:58 | Outpatient (BNVA) | payer MEDICARE, SELFPAY | PROVIDERS: PCP Nurse Practitioner Family; Visit Provider Nurse Practitioner Family | DX: I25.5 Ischemic cardiomyopathy (principal); Z87.891 Personal history of nicotine dependence; I11.0 Hypertensive heart disease with heart failure; I50.9 Heart failure, unspecified | CPT/HCPCS: 99214 ==

== ENCOUNTER 2022-08-28 09:01 | Outpatient (CLI) | payer MEDICARE, SELFPAY ==
--- NOTE | 2022-08-28 09:30 | CT_ITS ---
WS: [id number] CT CHEST TECHNIQUE: Noncontrast CT of the chest with coronal and sagittal reformatted images. CLINICAL INFORMATION: Round atelectasis LEFT lower lobe progressed COMPARISON: March 13, 2022 DLP: 1166.[address] scans at [facility] use at least one of these dose optimization techniques: automated e xposure control; mA and/or kV adjustment per patient size (includes targeted exams where dose is matc hed to clinical indication); or iterative reconstruction. FINDINGS: Mild chronic emphysematous changes. No acute pulmonary infiltrates. Round atelectasis LEFT lower lobe stable since March 13, 2022. Recommend continued surveillance with 12 month follow-up. No mediastin al or hilar lymphadenopathy. Calcified granuloma LEFT lower lobe. Slight compressive atelectasis RIGH T lower lobe. Mild aortic calcification. Coronary calcification. No axillary lymphadenopathy. Small LEFT adrenal ad enoma 12 mm. Normal RIGHT adrenal gland. Diffuse fatty infiltration liver. Splenic granulomas. Mild t horacic kyphosis. Hypertrophic changes thoracic spine. Thoracic curve convex LEFT. CT/CT chest con [id number] IMPRESSION: 1. Round atelectasis LEFT lower lobe stable since March 13, 2022. Recommend c ontinued surveillance with 12 month follow-up. 2. Mild chronic emphysematous changes. 3. No other significant interval changes.
== END 2022-08-28 09:02 | disposition home or self-care (01) ==
LOC: RAD 09:04
PROVIDERS: PCP Nurse Practitioner Family; Visit Provider Internal Medicine Pulmonary Disease
DX: R91.8 Other nonspecific abnormal finding of lung field (principal)
CPT/HCPCS: 71250

== ENCOUNTER → 2022-11-30 09:53 | Outpatient (BNVA) | payer MEDICARE, SELFPAY | PROVIDERS: PCP Nurse Practitioner Family; Visit Provider Internal Medicine Pulmonary Disease | DX: J96.11 Chronic respiratory failure with hypoxia (principal); J96.12 Chronic respiratory failure with hypercapnia; I25.5 Ischemic cardiomyopathy; I42.0 Dilated cardiomyopathy; J43.2 Centrilobular emphysema; I50.23 Acute on chronic systolic (congestive) heart failure; E66.2 Morbid (severe) obesity with alveolar hypoventilation; I27.81 Cor pulmonale (chronic); R42 Dizziness and giddiness; Z68.41 Body mass index [BMI] 40.0-44.9, adult; Z87.891 Personal history of nicotine dependence; Z99.81 Dependence on supplemental oxygen | CPT/HCPCS: 99214 ==

== ENCOUNTER → 2023-02-06 10:50 | Outpatient (BNVA) | payer MEDICARE, SELFPAY | PROVIDERS: PCP Nurse Practitioner Family; Visit Provider Internal Medicine Cardiovascular Disease | DX: R94.39 Abnormal result of other cardiovascular function study (principal); I11.0 Hypertensive heart disease with heart failure; I50.9 Heart failure, unspecified; J96.11 Chronic respiratory failure with hypoxia; J96.12 Chronic respiratory failure with hypercapnia; G47.33 Obstructive sleep apnea (adult) (pediatric); I27.81 Cor pulmonale (chronic); I42.9 Cardiomyopathy, unspecified; Z87.891 Personal history of nicotine dependence | CPT/HCPCS: 99214 ==

== ENCOUNTER → 2023-08-16 08:50 | Outpatient (BNVA) | payer MEDICARE, SELFPAY | PROVIDERS: PCP Nurse Practitioner Family; Visit Provider Internal Medicine Cardiovascular Disease | DX: R94.39 Abnormal result of other cardiovascular function study (principal); I27.81 Cor pulmonale (chronic); J43.2 Centrilobular emphysema; E66.2 Morbid (severe) obesity with alveolar hypoventilation; Z68.41 Body mass index [BMI] 40.0-44.9, adult; Z87.891 Personal history of nicotine dependence; I11.0 Hypertensive heart disease with heart failure; I50.9 Heart failure, unspecified | CPT/HCPCS: 99214 ==

== ENCOUNTER 2023-08-20 08:19 | Inpatient (IN) | payer MEDICARE, SELFPAY ==
[2023-08-20] VITALS (10 sets, daily range): BP systolic 107–136; BP diastolic 5–88; PULSE 69–88; RESP 16–29; TEMP 36.7–36.9; O2SAT 97–99; BMI 40.4
--- NOTE | 2023-08-20 08:25 | XRR_ITS ---
PROCEDURE INFORMATION: Exam: XR Left Knee Exam date and time: 08/20/2023 8:36 AM Age: 73 years old Clinical indication: Patient HX: Left knee pain, no known trauma, HX of testicular cancer TECHNIQUE: Imaging protocol: Radiologic exam of the left knee. Views: 3 views. COMPARISON: CR XR foot LT min 3V* [id number] 12/21/2016 10:43 AM FINDINGS: Bones/joints: There is a moderate-sized suprapatellar effusion. There is advanced osteoarthritis of the knee consisting of medial compartment space narrowing and tricompartment osteophytosis. There is no evidence of acute fracture. Soft tissues: Normal. XR/XR knee LT 3V* [id number] IMPRESSION: 1. Advanced left knee osteoarthritis. 2. Moderate-sized effusion.
--- NOTE | 2023-08-20 08:25 | USCV_ITS ---
Santosh Brownlee Age: 73 Gender: M : 1950 Exam Date: 08/20/2023 09:51 Ordering Phys: Nahun Acosta MD Technologist: CT [place]am [place] [facility] [place] Indication: leg pain PROCEDURES: The venous duplex Doppler examination of both lower extremities was performed in the standard fashion. In addition, the posterior tibial and peroneal trunk were evaluated. FINDINGS: Normal 2-D Doppler and augmentation and compressibility throughout the lower extremity venous structures. Additional imaging through the proximal calf veins also reveals no thrombus. Limited evaluation of the greater saphenous vein is patent with no thrombus. CONCLUSIONS No DVT bilateral lower extremities. Dr. Zoë Minor DO (Electronically Signed) Final Date: 20 August 2023 10:37 S
[2023-08-20 08:42] LABS: Glucose Point of Care 209 mg/dL (70-110)
--- NOTE | 2023-08-20 08:57 | W.ED.EXTPRO ---
HPI - Extremity Problem General: Chief complaint: Extremity Problem,Nontraumatic Stated complaint: left knee pain Time Seen by Provider: 08/20/23 08:25 History of Present Illness: 73-year-old male presents to the emergency department via EMS personnel secondary to complaints of left knee pain and inability to stand on his left extremity. He states this started yesterday and he denies trauma or known injury. He does have significant swelling to the bilateral lower extremities and has significant cellulitis to the right lower extremity. He states his pain is a 9 out of 10 if he attempts to stand on his leg. He states that both legs have been swollen for quite some time. Associated symptoms: Reports rash Review of Systems General: Reports: 10 or more systems reviewed and unremarkable except in HPI and below Musc: Reports: extremity pain, extremity swelling and joint pain Skin/Breast: Reports: rash, erythema, skin swelling and changes in skin color [facility] PFSH: Medical History (Updated 08/25/23 @ 00:00 by CURTIS Gonzalez) Gout GERD (gastroesophageal reflux disease) Prostate cancer Chronic back pain Edema Diabetes DJD (degenerative joint disease) Tobacco use Heart failure, unspecified Possibly ischemic with positive nuclear stress test in 2021, for which the patient elected no further evaluation ALEX (obstructive sleep apnea) Cor pulmonale Uses home O2 3L/min at home BPH (benign prostatic hyperplasia) Morbid obesity Bilateral edema of lower extremity CHF (congestive heart failure) COPD (chronic obstructive pulmonary disease) Hypertension Surgical History Hx of hand surgery History of cataract surgery S/P hernia repair (10/20/20) open ventral with mesh S/P thoracotomy History of cholecystectomy Family History Mother CAD (coronary artery disease) Diabetes Father CAD (coronary artery disease) Sister Diabetes Denies family history of Clotting disorder Dementia Chronic kidney disease (CKD) Suicide Anesthesia complication Bleeding disorder Lung disease Cancer Stroke Social History Smoking and tobacco/nicotine status: former use of tobacco/nicotine Quit status (tobacco/nicotine): has quit using Year quit tobacco: November 2020 [id number] Second hand smoke exposure: No Alcohol intake: never Substance/Drug Use: never Lives independently: Yes Household members: spouse Marital status: service: No Current occupational status: retired Pets and animals: Yes Do you think of yourself as: Straight/Heterosexual Current gender identity: Male Physical Exam Narrative: EXAM NARRATIVE: Constitutional: the patient appears well nourished and with normal development. Vital signs reviewed as documented. HENMT: Normocephalic, atraumatic. External ears normal appearance without drainage. Nose without drainage, normal appearance. Mucus membranes moist. Neck is supple, No jugular venous distension, trachea is midline, no appreciable carotid bruits. No lymphadenopathy. No meningeal signs. Flexion, extension and lateral rotation is without pain. Eyes: Pupils are equal, round, reactive to light and accommodation. No scleral icterus. Extra-ocular movement are intact. Thorax is symmetrical and with equal rise and fall with respirations. Resp: Decreased bilaterally in the bases, intermittent expiratory wheezes noted, patient is on chronic supplemental oxygen at 4 L nasal cannula. No rales, crackles or ronchi at present. Cardio: Regular rate and rhythm. Positive S1, S2. No appreciable murmurs, rubs or gallops. GI: Abdominal exam reveals normal bowel sounds to all quadrants. No organomegaly. No obvious palpable masses noted. No hepatomegally appreciated. Soft, non-tender to palpation. Extremity: Extremities are edematous at 2+ bilaterally. Right lower leg has significant cellulitis to the lower aspect and both femoral and pedal pulses are 2+ and equal bilaterally. Moves all extremities, sensation in all extremities. Any attempts at flexion of the hip or the knee to the left lower extremity causes worsening pain. Although he denies trauma to the left knee there is a area to the left patella that does appear to have a healing bruise on it, I suspect given his large effusion on x-ray and his severe osteoarthritis that this is the cause of his left knee pain and not from an infection etiology. Neuro: Alert and oriented x4, person, place, time and situation. Cranial nerves II through XII are grossly intact, there is no focal neurological deficits that I can appreciate at present. Motor strength in the upper and lower extremities are equal and bilateral 5/5. Psych: Cooperative, calm, normal thought process, appropriate judgment. Skin: No lesions, rashes. No gross abnormalities noted. Back: Symmetrical, no obvious deformity, No CVA tenderness Course Vital Signs: Vital signs: Vital Signs Temperature 97.8 F 08/24/23 16:32 Pulse Rate 63 08/24/23 16:32 Respiratory Rate 15 08/24/23 16:32 Blood Pressure 117/70 08/24/23 16:32 Pulse Oximetry 98 08/24/23 16:32 Oxygen Delivery Me thod Nasal Cannula 08/24/23 11:36 Oxygen Flow Rate 4 08/24/23 08:55 MDM - Extremity (Nontraumatic) Medical Decision Making 73-year-old male presents with left knee pain and inability to ambulate because of the pain. He does have cellulitis to the right lower leg and significant bilateral lower extremity swelling. I will obtain ultrasound to rule out DVT, given his inability to ambulate and his cellulitis to his right lower leg we will obtain laboratory values to include a CBC, CMP, procalcitonin, lactic acid and blood cultures we will provide IV antibiotics I suspect most likely at this point given the patient's comorbidities and current presentation he will get admitted to the hospital. Medical Records I reviewed the patient's medical records. Lab Data I reviewed the patient's lab results. 08/23/23 05:14 08/24/23 05:31 Radiology Impressions Knee X-Ray 08/20/23 08:25 IMPRESSION: 1. Advanced left knee osteoarthritis. 2. Moderate-sized effusion. Chest X-Ray 08/20/23 11:31 IMPRESSION: Thin linear opacity in the right base could represent scarring or atelectasis. No consolidation. Otherwise unremarkable chest x-ray. Laboratory Results WBC 14.50 10^3/uL (3.29-11.43) H 08/20/23 08:50 RBC 3.58 10^6/uL (3.85-5.65) L 08/20/23 08:50 Hgb 10.50 g/dL (11.27-16.99) L 08/20/23 08:50 Hct 31.1 % (37-53) L 08/20/23 08:50 MCV 86.9 fl (82-101) 08/20/23 08:50 MCH 29.3 pg (27-33) 08/20/23 08:50 MCHC 33.8 g/dL (30-55) 08/20/23 08:50 RDW 15.7 % (12.1-15.1) H 08/20/23 08:50 Plt Count 281 10^3/cmm (157-399) 08/20/23 08:50 MPV 8.8 fL (7.4-10.4) 08/20/23 08:50 Neut % (Auto) 84.5 % 08/20/23 08:50 Lymph % (Auto) 7.1 % 08/20/23 08:50 [place] % (Auto) 6.8 % 08/20/23 08:50 Eos % (Auto) 0.5 % 08/20/23 08:50 Baso % (Auto) 0.6 % 08/20/23 08:50 Neut # (Auto) 12.26 10^3/uL (1.8-7.7) H 08/20/23 08:50 Lymph # (Auto) 1.0 10^3/uL (0.8-4.8) 08/20/23 08:50 [place] # (Auto) 1.0 10^3/uL (0.2-0.9) H 08/20/23 08:50 Eos # (Auto) 0.1 10^3/uL (0.0-0.8) 08/20/23 08:50 Baso # (Auto) 0.1 10^3/uL (0.0-0.1) 08/20/23 08:50 Nucleated RBC % (auto) 0 % 08/20/23 08:50 Nucleated RBCs # 0.0 /100WBC 08/20/23 08:50 PT 15.20 SECONDS (12.1-14.9) H 08/20/23 08:50 INR 1.16 (0.8-1.2) 08/20/23 08:50 APTT 33.3 SECONDS (23.9-36.7) 08/20/23 08:50 Sodium 132 mmol/L (136-145) L 08/20/23 08:50 Potassium 3.6 mmol/L (3.5-5.1) 08/20/23 08:50 Chloride 90 mmol/L (98-107) L 08/20/23 08:50 Carbon Dioxide 27 mmol/L (22-29) 08/20/23 08:50 Anion Gap 18.6 (5-19) 08/20/23 08:50 BUN 57 mg/dL (8-23) H 08/20/23 08:50 Creatinine 2.1 mg/dL (0.7-1.2) H 08/20/23 08:50 GFR Calculation Not Reportable 08/20/23 08:50 Glucose 167 mg/dL (65-115) H 08/20/23 08:50 POC Glucose 209 mg/dL (70-110) H 08/20/23 08:38 Calculated Osmolality 294 mOsm/kg (285-295) 08/20/23 08:50 Lactic Acid 1.9 mmol/L (0.5-2.2) 08/20/23 08:50 Uric Acid 10.7 mg/dL (3.4-7.0) H 08/20/23 08:50 Calcium 8.6 mg/dL (8.5-10.5) 08/20/23 08:50 Iron 24 ug/dL (59-158) L 08/20/23 08:50 TIBC 319 mcg/dl 08/20/23 08:50 % Saturation 7.5 % (20-50) L 08/20/23 08:50 Unsat Iron Binding 295 ug/dL (112-347) 08/20/23 08:50 Ferritin 53 ng/mL (30-400) 08/20/23 08:50 Total Bilirubin 0.6 mg/dL (0.15-1.2) 08/20/23 08:50 AST 12 U/L (0-40) 08/20/23 08:50 ALT 12 U/L (0-41) 08/20/23 08:50 Alkaline Phosphatase 109 U/L (40-130) 08/20/23 08:50 Creatine Kinase 55 U/L (39-308) 08/20/23 08:50 NT-Pro-B Natriuret Pep 1333 pg/mL (0-125) H 08/20/23 08:50 Total Protein 7.4 g/dL (6.6-8.7) 08/20/23 08:50 Albumin 3.6 g/dL (3.5-5.2) 08/20/23 08:50 Globulin 3.8 g/dL (1.3-4.6) 08/20/23 08:50 Vitamin B12 1125 pg/mL (232-1245) 08/20/23 08:50 Folate > 20.0 ng/mL (4.5-32.2) 08/20/23 08:50 Procalcitonin 0.19 ng/mL (0-0.5) 08/20/23 08:50 All radiology interpretation(s) finalized by discharge Discharge Plan Discharge Patient Disposition: Admitted As Inpatient Admit Provider: Randall Medina Clinical Impression: Cellulitis of leg, right, Effusion of knee joint, left CHF exacerbation Qualifiers: Heart failure type: unspecified Qualified Code(s): I50.9 - Heart failure, unspecified Condition: Stable Discharge Diet: Cardiac and Diabetic Discharge Activity: Increase activity as tolerated Coding Level of Care Code ED Drapery Cutter for Oscar Roberson
[2023-08-20 08:59] LABS: Basophils # 0.1 10^3/uL (0.0-0.1); Basophils % 0.6 %; Eosinophils # 0.1 10^3/uL (0.0-0.8); Eosinophils % 0.5 %; Hematocrit 31.1 % (37-53); Lymphocytes % 7.1 %; Mean Corpuscular HGB Conc 33.8 g/dL (30-55); Mean Corpuscular Hemoglobin 29.3 pg (27-33); Mean Corpuscular Volume 86.9 fl (82-101); Mean Platelet Volume 8.8 fL (7.4-10.4); Monocytes % 6.8 %; Neutrophils # 12.26 10^3/uL (1.8-7.7); Neutrophils % 84.5 %; Nucleated Red Blood Cells % 0 %; Platelet Count 281 10^3/cmm (157-399); Red Blood Count 3.58 10^6/uL (3.85-5.65); Red Cell Distribution Width 15.7 % (12.1-15.1)
[2023-08-20 09:17] LABS: INR 1.16 (0.8-1.2)
[2023-08-20 09:18] LABS: Partial Thromboplastin Time 33.3 SECONDS (23.9-36.7)
[2023-08-20 09:20] LABS: Lactic Sepsis W/Reflex 1.9 mmol/L (0.5-2.2)
[2023-08-20 09:28] LABS: NT Pro B Type Natriuretic Pept 1333 pg/mL (0-125); Procalcitonin 0.19 ng/mL (0-0.5)
[2023-08-20 09:39] LABS: Alanine Aminotransferase 12 U/L (0-41); Albumin Level 3.6 g/dL (3.5-5.2); Alkaline Phosphatase 109 U/L (40-130); Anion Gap 18.6 (5-19); Aspartate Amino Transferase 12 U/L (0-40); Blood Urea Nitrogen 57 mg/dL (8-23); Calcium 8.6 mg/dL (8.5-10.5); Carbon Dioxide 27 mmol/L (22-29); Chloride 90 mmol/L (98-107); Globulin 3.8 g/dL (1.3-4.6); Glucose 167 mg/dL (65-115); Osmolality Calculated 294 mOsm/kg (285-295); Potassium 3.6 mmol/L (3.5-5.1); Sodium 132 mmol/L (136-145); Total Bilirubin 0.6 mg/dL (0.15-1.2); Total Protein 7.4 g/dL (6.6-8.7)
--- NOTE | 2023-08-20 11:25 | P.HP_ITS ---
Providers/Chief Complaint 2 Admitting Physician: Randall Medina MD Primary Care Provider: YOGESH Tinoco Chief Complaint: left knee pain History of Present Illness Santosh Brownlee is a 73 year old male presenting to the emergency department with difficulty with ambulation, left knee swelling. He denies any injury to the knee. He also recently noted increased erythema, to his right sosa. His legs have been swelling a little bit more than usual. He has been perhaps a little bit more short of breath. No chest pain. No blood in stool or black or tarry stool. No respiratory illness. He is usually on approximately CPAP at night and approximately 4 L during the day. Review of Systems 2 General: Reports: 10 or more systems reviewed and unremarkable except in HPI and below Card: Reports: edema and dyspnea on exertion; Denies: chest pain Resp: Reports: dyspnea GI: Denies: hematochezia or melena Medications/Allergies Home Medications Medication Instructions Recorded Confirmed Last Taken Type atenolol 25 mg tablet 50 mg PO DAILY 09/27/20 08/20/23 08/20/23 History multivitamin 1 tab PO DAILY 09/27/20 08/20/23 08/20/23 History albuterol sulfate 90 mcg/actuation 2 inh inhalation Q4-5H PRN 10/20/20 08/20/23 10/19/20 History aerosol inhaler Shortness Of Breath Or Wheezing allopurinol 100 mg tablet 100 mg PO DAILY 12/07/20 08/20/23 08/20/23 History aspirin 81 mg chewable tablet 81 mg PO DAILY 12/07/20 08/20/23 08/20/23 History famotidine 20 mg tablet 20 mg PO DAILY 12/07/20 08/20/23 08/20/23 History metolazone 5 mg tablet 10 mg (2 x 5 mg) PO DAILY #30 tabs 12/15/20 08/20/23 08/20/23 Rx spironolactone 25 mg tablet 50 mg (2 x 25 mg) PO DAILY #30 tabs 12/15/20 08/20/23 08/20/23 Rx doxazosin 2 mg tablet 4 mg PO DAILY 01/19/21 08/20/23 08/20/23 History potassium chloride 10 mEq 10 meq PO DAILY 01/19/21 08/20/23 08/20/23 History tablet,extended release(part/cryst) ipratropium 0.5 mg-albuterol 3 mg 3 ml inhalation QID PRN Shortness 06/14/21 08/20/23 Unknown History (2.5 mg base)/3 mL nebulization Of Breath Or Wheezing soln isosorbide mononitrate 30 mg 30 mg PO DAILY #90 tabs 02/08/22 08/20/23 08/20/23 Rx tablet,extended release 24 hr nitroglycerin 0.4 mg sublingual 0.4 mg sublingual Q5M PRN chest 02/08/22 08/20/23 Unknown Rx tablet pain 30 days #30 tabs budesonide 160 mcg-glycopyr 9 2 inh inhalation BID #10.7 grams 12/07/22 08/20/23 08/20/23 Rx mcg-formot 4.8 mcg/actuation HFA inhaler (Breztri Aerosphere) metformin 500 mg tablet 1,000 mg PO BID 02/06/23 08/20/23 08/20/23 History atorvastatin 10 mg tablet 10 mg PO QPM 08/20/23 08/20/23 08/19/23 History finasteride 5 mg tablet 5 mg PO DAILY 08/20/23 08/20/23 08/20/23 History pantoprazole 40 mg tablet,delayed 40 mg PO DAILY 08/20/23 08/20/23 08/20/23 History release Allergies Allergy/AdvReac Type Severity Reaction Status Date / Time hydrocodone Allergy Rash Verified 08/20/23 09:34 Sulfa (Sulfonamide Allergy RASH Verified 08/20/23 09:34 Antibiotics) PFSH Acute 2 PFSH: Medical History (Updated 08/20/23 @ 11:35 by Randall Medina MD) Gout GERD (gastroesophageal reflux disease) Prostate cancer Chronic back pain Edema Diabetes DJD (degenerative joint disease) Tobacco use Heart failure, unspecified Possibly ischemic with positive nuclear stress test in 2021, for which the patient elected no further evaluation ALEX (obstructive sleep apnea) Cor pulmonale Uses home O2 3L/min at home BPH (benign prostatic hyperplasia) Morbid obesity Bilateral edema of lower extremity CHF (congestive heart failure) COPD (chronic obstructive pulmonary disease) Hypertension Surgical History Hx of hand surgery History of cataract surgery S/P hernia repair (10/20/20) open ventral with mesh S/P thoracotomy History of cholecystectomy Family History Mother CAD (coronary artery disease) Diabetes Father CAD (coronary artery disease) Sister Diabetes Denies family history of Clotting disorder Dementia Chronic kidney disease (CKD) Suicide Anesthesia complication Bleeding disorder Lung disease Cancer Stroke Social History Smoking and tobacco/nicotine status: former use of tobacco/nicotine Quit status (tobacco/nicotine): has quit using Year quit tobacco: November 2020 [id number] Second hand smoke exposure: No Alcohol intake: never Substance/Drug Use: never Lives independently: Yes Household members: spouse Marital status: service: No Current occupational status: retired Pets and animals: Yes Do you think of yourself as: Straight/Heterosexual Current gender identity: Male Vitals/I&O/Wt Last Vital Signs Temp 98.2 F 08/20/23 08:19 Pulse 74 08/20/23 08:56 Resp 24 H 08/20/23 08:56 BP 131/67 08/20/23 08:56 Pulse Ox 99 08/20/23 08:56 O2 Del Method Nasal Cannula 08/20/23 08:56 O2 Flow Rate 4 08/20/23 08:56 Weight last 48 hrs Weight 127.913 kg Physical Exam 2 Narrative: General exam demonstrates a conversant white male on 4 L of oxygen reporting his left knee hurts. HEENT: Atraumatic and normocephalic. Pupils equally round. Oropharynx clear. Neck is supple obese Cardiovascular regular rate and rhythm, no murmur Lungs diminished breath sounds bilaterally. No wheezing Abdomen is soft, positive bowel sounds. Hernias noted, midline, easily reducible exam is deferred Extremities show 2+ edema bilaterally. Cellulitis is noted on the right sosa with increased erythema, edema, and a little bit of blistering. Slight increase in warmth. Distal refill is intact. Left knee demonstrates no erythema. It is evident a likely effusion as there is the knee appears to have an effusion and is slightly bent at an angle for comfort. Skin see findings above Neuro no focal deficits Data 08/20/23 08:50 08/20/23 08:50 Other Labs: Last echo 02/10 demonstrated an EF of 65% and slight decrease in RV function Venous duplex no DVT X-ray of his knee demonstrates early osteoarthritis, moderate effusion. I reviewed this as well I ordered a chest x-ray and an EKG No blood cultures were obtained. As he does not have a history of fever, these may not be needed at this time unless fever develops. LFTs are normal BNP is elevated at 1333, higher than his normal baseline Procalcitonin 0.19 A&P Assessment and plan (1) Knee pain, left: Patient presents to the hospital with left knee pain He has known arthritis of his knee I suspect a significant effusion, and think infection is less likely Initiate oxycodone as needed pain. He is not a candidate for anti-inflammatory secondary to his acute on chronic kidney dysfunction Check uric acid on blood in lab Orthopedic consultation Physical therapy consultation (2) Cellulitis of leg, right: Patient has cellulitis of his right lower extremity This is recurred in the past and appears to be recurring now Initiate vancomycin Close follow-up with CBC CMP levels daily as well as trough levels were appropriate (3) CHF exacerbation: Patient appears to be having a CHF exacerbation with increased shortness of breath, and increased lower extremity edema Diuresis with IV diuretics. Hold his metolazone for now and initiate Bumex 2 mg IV every 12 hours. Will hold his spironolactone now as well. BMP and magnesium level daily. Echocardiogram Qualifiers: Heart failure type: unspecified Qualified Code(s): I50.9 - Heart failure, unspecified (4) Leukocytosis: Patient has leukocytosis This could be secondary to his cellulitis Cannot completely rule out bone marrow issue/CML secondary to white blood cell count being elevated in the past and slightly high monocytes Recommend outpatient follow-up with hematology. (5) Anemia: Check stool Hemoccult Anemia panel Follow-up with CBC tomorrow (6) Acute kidney injury: Patient with acute kidney injury, superimposed on chronic kidney disease This may be secondary to hepatorenal syndrome Avoid renal toxic medication Diurese, follow creatinine closely Bladder scan Check CK to rule out rhabdo. Hold Lipitor until CK is known (7) COPD (chronic obstructive pulmonary disease): Patient with underlying COPD No evidence of exacerbation currently DuoNeb every 6 hours, budesonide twice daily Qualifiers: COPD type: emphysema Emphysema type: centrilobular Qualified Code(s): J43.2 - Centrilobular emphysema (8) Diabetes: Hold diabetic medication Sliding scale insulin Consistent carb, cardiac diet Plan Multiple other problems as outlined in past medical history Full code Heparin will be used for DVT prophylaxis. 1 dose tonight, then hold in case arthrocentesis is done tomorrow. Attestations 2 Medical Necessity Statement*: Will require greater than 2 midnight stay for evaluation and treatment of cellulitis of the right lower extremity, acute exacerbation of CHF, left knee joint effusion with the inability to walk, acute on chronic kidney injury. Diagnoses Knee pain, left M25.562 Cellulitis of leg, right L03.115 CHF exacerbation I50.9 Heart failure type: unspecified Leukocytosis D72.829 Anemia D64.9 Acute kidney injury N17.9 Centrilobular emphysema J43.2 COPD type: emphysema Emphysema type: centrilobular Diabetes E11.9 Time Spent (min) 64
--- NOTE | 2023-08-20 11:31 | XRR_ITS ---
PROCEDURE INFORMATION: Exam: XR Chest Exam date and time: 08/20/2023 11:37 AM Age: 73 years old Clinical indication: Shortness of breath; Patient HX: HX of testicular cancer; Additional info: Chf TECHNIQUE: Imaging protocol: Radiologic exam of the chest. Views: 1 view. COMPARISON: CT chest [facility] [id number] 08/28/2022 9:23 AM FINDINGS: Lungs: Thin linear opacity in the right base could represent scarring or atelectasis. No consolidation. Pleural spaces: Unremarkable. No pleural effusion. No pneumothorax. Heart/Mediastinum: Unremarkable. No cardiomegaly. Bones/joints: Unremarkable. XR/XR chest 1V portable [id number] IMPRESSION: Thin linear opacity in the right base could represent scarring or atelectasis. No consolidation. Otherwise unremarkable chest x-ray.
--- NOTE | 2023-08-20 11:31 | ECG_ITS ---
[facility] Test Date: 2023-08-20 Pat Name: Santosh Brownlee Department: Room: 276 Gender: Male Nozzle Tender: : 1950 Requested By: Randall Diaz Order Number: [id number] Kael MD: Elvia Frost M.D. Measurements Intervals Ledbetter Rate: 71 P: 43 MO: 158 QRS: 47 QRSD: 114 T: 57 QT: 424 QTc: 461 Interpretive Statements SINUS RHYTHM MODERATE INTRAVENTRICULAR CONDUCTION DELAY [110+ ms QRS DURATION] Compared to ECG 12/07/2020 18:30:48 Intraventricular conduction delay now present Sinus bradycardia no longer present Atrial abnormality no longer present Electronically Signed On 08-20-2023 19:35:13 RIB BUILDER by Elvia Frost M.D. [id number]
[2023-08-20] MEDS: oxyCODONE 5 mg IR Tab/Cap PO ×2 (11:33→17:40)
[2023-08-20 12:00] LABS: Creatine Phosphokinase 55 U/L (39-308)
[2023-08-20 12:28] LABS: Ferritin 53 ng/mL (30-400); Iron 24 ug/dL (59-158); Percent Saturation 7.5 % (20-50); Total Iron Binding Capacity 319 mcg/dl; Unsaturated Iron Binding 295 ug/dL (112-347); Uric Acid 10.7 mg/dL (3.4-7.0)
[2023-08-20 12:39] LABS: Vitamin B12 1125 pg/mL (232-1245)
--- NOTE | 2023-08-20 13:10 | P.HP_ITS ---
Providers/Chief Complaint 2 Admitting Physician: Randall Medina MD Primary Care Provider: YOGESH Tinoco Chief Complaint: left knee pain History of Present Illness Santosh Brownlee is a 73 year old male patient is having knee pain cannot ambulate on it difficult to move his knee. Review of Systems 2 General: Reports: 10 or more systems reviewed and unremarkable except in HPI and below Card: Reports: edema and dyspnea on exertion; Denies: chest pain Resp: Reports: dyspnea GI: Denies: hematochezia or melena Medications/Allergies Home Medications Medication Instructions Recorded Confirmed Last Taken Type atenolol 25 mg tablet 50 mg PO DAILY 09/27/20 08/20/23 08/20/23 History multivitamin 1 tab PO DAILY 09/27/20 08/20/23 08/20/23 History albuterol sulfate 90 mcg/actuation 2 inh inhalation Q4-5H PRN 10/20/20 08/20/23 10/19/20 History aerosol inhaler Shortness Of Breath Or Wheezing allopurinol 100 mg tablet 100 mg PO DAILY 12/07/20 08/20/23 08/20/23 History aspirin 81 mg chewable tablet 81 mg PO DAILY 12/07/20 08/20/23 08/20/23 History famotidine 20 mg tablet 20 mg PO DAILY 12/07/20 08/20/23 08/20/23 History metolazone 5 mg tablet 10 mg (2 x 5 mg) PO DAILY #30 tabs 12/15/20 08/20/23 08/20/23 Rx spironolactone 25 mg tablet 50 mg (2 x 25 mg) PO DAILY #30 tabs 12/15/20 08/20/23 08/20/23 Rx doxazosin 2 mg tablet 4 mg PO DAILY 01/19/21 08/20/23 08/20/23 History potassium chloride 10 mEq 10 meq PO DAILY 01/19/21 08/20/23 08/20/23 History tablet,extended release(part/cryst) ipratropium 0.5 mg-albuterol 3 mg 3 ml inhalation QID PRN Shortness 06/14/21 08/20/23 Unknown History (2.5 mg base)/3 mL nebulization Of Breath Or Wheezing soln isosorbide mononitrate 30 mg 30 mg PO DAILY #90 tabs 02/08/22 08/20/23 08/20/23 Rx tablet,extended release 24 hr nitroglycerin 0.4 mg sublingual 0.4 mg sublingual Q5M PRN chest 02/08/22 08/20/23 Unknown Rx tablet pain 30 days #30 tabs budesonide 160 mcg-glycopyr 9 2 inh inhalation BID #10.7 grams 12/07/22 08/20/23 08/20/23 Rx mcg-formot 4.8 mcg/actuation HFA inhaler (Breztri Aerosphere) metformin 500 mg tablet 1,000 mg PO BID 02/06/23 08/20/23 08/20/23 History atorvastatin 10 mg tablet 10 mg PO QPM 08/20/23 08/20/23 08/19/23 History finasteride 5 mg tablet 5 mg PO DAILY 08/20/23 08/20/23 08/20/23 History pantoprazole 40 mg tablet,delayed 40 mg PO DAILY 08/20/23 08/20/23 08/20/23 History release Allergies Allergy/AdvReac Type Severity Reaction Status Date / Time hydrocodone Allergy Rash Verified 08/20/23 09:34 Sulfa (Sulfonamide Allergy RASH Verified 08/20/23 09:34 Antibiotics) PFSH Acute 2 PFSH: Medical History (Updated 08/20/23 @ 11:35 by Randall Medina MD) Gout GERD (gastroesophageal reflux disease) Prostate cancer Chronic back pain Edema Diabetes DJD (degenerative joint disease) Tobacco use Heart failure, unspecified Possibly ischemic with positive nuclear stress test in 2021, for which the patient elected no further evaluation ALEX (obstructive sleep apnea) Cor pulmonale Uses home O2 3L/min at home BPH (benign prostatic hyperplasia) Morbid obesity Bilateral edema of lower extremity CHF (congestive heart failure) COPD (chronic obstructive pulmonary disease) Hypertension Surgical History Hx of hand surgery History of cataract surgery S/P hernia repair (10/20/20) open ventral with mesh S/P thoracotomy History of cholecystectomy Family History Mother CAD (coronary artery disease) Diabetes Father CAD (coronary artery disease) Sister Diabetes Denies family history of Clotting disorder Dementia Chronic kidney disease (CKD) Suicide Anesthesia complication Bleeding disorder Lung disease Cancer Stroke Social History Smoking and tobacco/nicotine status: former use of tobacco/nicotine Quit status (tobacco/nicotine): has quit using Year quit tobacco: November 2020 1- [id number] Second hand smoke exposure: No Alcohol intake: never Substance/Drug Use: never Lives independently: Yes Household members: spouse Marital status: service: No Current occupational status: retired Pets and animals: Yes Do you think of yourself as: Straight/Heterosexual Current gender identity: Male Vitals/I&O/Wt Last Vital Signs Temp 98.2 F 08/20/23 08:19 Pulse 74 08/20/23 08:56 Resp 24 H 08/20/23 08:56 BP 131/67 08/20/23 08:56 Pulse Ox 99 08/20/23 08:56 O2 Del Method Nasal Cannula 08/20/23 08:56 O2 Flow Rate 4 08/20/23 08:56 Weight last 48 hrs Weight 282 lb Physical Exam 2 Narrative: Patient has palpable left knee effusion. No erythema patient has difficulty bending his knee. X-ray reviewed shows [id number] arthritis of the medial compartment with significant osteophyte formations. Data 08/20/23 08:50 08/20/23 08:50 A&P Assessment and plan (1) Effusion of knee joint, left: Patient has knee effusion left knee likely a flareup from osteoarthritis. Will aspirate tomorrow if pain continues. Will inject steroid if there is no evidence of any purulence. At this point I do not feel it is infected likely a osteoarthritis flareup. Attestations 2 Medical Necessity Statement*: Per primary service Coding Level of Care Code Acute Code for Chg Fwd Diagnoses Effusion of knee joint, left M25.462
[2023-08-20 13:41] LABS: Folate Level > 20.0 ng/mL (4.5-32.2)
--- NOTE | 2023-08-20 14:28 | USCV_ITS ---
Santosh Brownlee Age: 73 Gender: M : 1950 Exam Date: 08/20/2023 18:57 Ordering Phys: Randall Medina MD Technologist: PAMELA [place]am Location: [facility] [place] [facility] [place] Indication: BLE edema, chronic cellulitis. No history of cardiac intervention. BP: 136 / 88 HR: 71 Rhythm: Sinus Technical Quality: Adequate with [employer] MEASUREMENTS (Male / Female) Normal Values 2D ECHO LV Diastolic Diameter PLAX 5.6 cm 4.2 - 5.9 / 3.9 - 5.3 cm LV Systolic Diameter PLAX 3.5 cm IVS Diastolic Thickness 1.9 cm 0.6 - 1.0 / 0.6 - 0.9 cm IVS Systolic Thickness 2.0 cm LVPW Diastolic Thickness 2.1 cm 0.6 - 1.0 / 0.6 - 0.9 cm LVPW Systolic Thickness 2.2 cm LVOT Diameter 2.7 cm LV Ejection Fraction 2D Teich 67.6 % LV Ejection Fraction MOD 2C 56.7 % LV Ejection Fraction 2C AL 58.9 % LA Diameter 5.0 cm LA Width 5.8 cm LA Height 5.9 cm RA Width 4.4 cm RA Height 4.4 cm Aorta at Sinotubular Diameter 3.5 cm IVC Diameter 2.0 cm M-MODE Aortic Annulus Diameter 3.3 cm LA Ao Ratio MM 1.4 MV E Point Septal Separation 0.3 cm DOPPLER AV Peak Velocity 116.0 cm/s LVOT Peak Velocity 81.0 cm/s AV Area Cont Eq vti 4.0 cm squared AV Area Cont Eq pk 4.0 cm squared MV Area PHT 2.7 cm squared Mitral E to A Ratio 0.7 MV E' Velocity 31.5 cm/s Mitral E to MV E' Ratio 12.6 Mitral E to LV E' Lateral Ratio 14.5 Mitral E to LV E' Septal Ratio 11.4 TR Peak Velocity 225.7 cm/s TR Peak Gradient 20.4 mmHg TV Peak E Velocity 34.0 cm/s Right Atrial Pressure 10.0 mmHg Pulmonary Artery Systolic Pressu 30.4 mmHg PV Peak Velocity 82.0 cm/s RV Acceleration Time 0.2 s RV Ejection Time 0.3 s RV AcT/ET 0.5 FINDINGS Left Ventricle Left ventricle is dilated. LV systolic function is normal with EF of 50 to 55%. No regional wall motion abnormalities are seen. Grade 1 diastolic dysfunction. Right Ventricle Normal in size and function Right Atrium Not well visualized Left Atrium Dilated Mitral Valve Not well visualized. Trace mitral regurgitation. Aortic Valve Grossly normal aortic valve. No significant stenosis or regurgitation. Tricuspid Valve Mild tricuspid regurgitation. Insufficient TR jet to calculate RVSP. Pulmonic Valve Not well-visualized Pericardium Normal Aorta Ascending aorta is mildly dilated with diameter of 3.79 cm. IVC Appears to be normal CONCLUSIONS Technically limited quality echocardiogram because of poor ultrasonic windows. Left ventricle is dilated. LV systolic function is normal with EF of 50 to 55%. Grade 1 diastolic dysfunction. Left atrium is dilated. Trace mitral regurgitation. Mild tricuspid regurgitation. Ascending aorta is mildly dilated with diameter of 3.79 cm. Compared to prior echocardiogram from 2021, LV systolic function is slightly reduced with no regional wall abnormalities. Ascending aorta is mildly dilated Avery Franco MD (Electronically Signed) Final Date: 21 August 2023 13:48 S
[2023-08-20] MEDS: ipratropium-albuterol 3 mL Neb INHALATION ×2 (15:36→20:17)
[2023-08-20] MEDS: bumetanide 0.25 mg/mL SDV 4 mL 2 MG IVP (15:49)
[2023-08-20] MEDS: insulin lispro 100 unit/1 mL SUBCUT ×2 (15:49→18:03)
[2023-08-20] MEDS: vancomycin 1,250 MG/250 ML PIGGYBACK 250 MG IV (15:50)
--- NOTE | 2023-08-20 16:31 | PC.NURSE ---
Pt arrives from ER with a constant dribbling of urine that was uncontrolled. Pt denied pain; however, bladder scan noted to have >860ml. Dr. Medina notified and saldivar catheter placed. Total of 2425ml emptied from saldivar immediately after placement.
[2023-08-20 17:28] LABS: Glucose Point of Care 156 mg/dL (70-110)
[2023-08-20] MEDS: docusate sodium 100 mg Capsule PO (17:40)
[2023-08-20] MEDS: heparin 5,000 unit/mL INJ 1 mL 5000 UNIT SUBCUT (17:41)
[2023-08-20 19:42] LABS: Bilirubin Urine Neg (Negative); Blood Urine Neg (Negative); Glucose Urine UA Norm (Normal); Ketones Urine 1+ (Negative); Leukocyte Esterase Urine Negative (Negative); Nitrate Urine Negative (Negative); Protein Urine Neg (Negative); Specific Gravity, Urine 1.005 (1.005-1.030); Urine Appearance Clear (CLEAR); Urine Color Yellow (Yellow); Urobilinogen Urine Norm (Negative); pH Urine 6 (5-7)
[2023-08-20 19:43] LABS: Add Urine Culture? No; Bacteria Urine TRACE /hpf
[2023-08-20 20:06] LABS: Glucose Point of Care 128 mg/dL (70-110)
[2023-08-20] MEDS: budesonide 0.5 mg/2 mL Neb INHALATION (20:16)
[2023-08-21] VITALS (10 sets, daily range): BP systolic 118–142; BP diastolic 66–74; PULSE 68–76; RESP 16–20; TEMP 36.4–37; O2SAT 94–98
[2023-08-21] MEDS: bumetanide 0.25 mg/mL SDV 4 mL 2 MG IVP (00:13)
[2023-08-21] MEDS: oxyCODONE 5 mg IR Tab/Cap PO ×2 (01:57→16:48)
[2023-08-21] MEDS: ipratropium-albuterol 3 mL Neb INHALATION ×3 (02:12→19:53)
[2023-08-21 05:42] LABS: Basophils # 0.1 10^3/uL (0.0-0.1); Basophils % 0.3 %; Eosinophils % 0.2 %; Hematocrit 32.9 % (37-53); Mean Corpuscular HGB Conc 32.8 g/dL (30-55); Mean Corpuscular Volume 88.4 fl (82-101); Mean Platelet Volume 9.2 fL (7.4-10.4); Monocytes # 1.2 10^3/uL (0.2-0.9); Monocytes % 7.1 %; Neutrophils # 14.51 10^3/uL (1.8-7.7); Neutrophils % 85.7 %; Nucleated Red Blood Cells % 0 %; Platelet Count 279 10^3/cmm (157-399); Red Blood Count 3.72 10^6/uL (3.85-5.65); Red Cell Distribution Width 15.6 % (12.1-15.1); White Blood Count 16.93 10^3/uL (3.29-11.43)
[2023-08-21 06:09] LABS: Alanine Aminotransferase 22 U/L (0-41); Albumin Level 3.6 g/dL (3.5-5.2); Alkaline Phosphatase 113 U/L (40-130); Anion Gap 21.2 (5-19); Aspartate Amino Transferase 82 U/L (0-40); Blood Urea Nitrogen 60 mg/dL (8-23); Calcium 9.2 mg/dL (8.5-10.5); Carbon Dioxide 25 mmol/L (22-29); Chloride 90 mmol/L (98-107); Glucose 148 mg/dL (65-115); Magnesium 1.3 mg/dL (1.7-2.3); Osmolality Calculated 296 mOsm/kg (285-295); Potassium 3.2 mmol/L (3.5-5.1); Sodium 133 mmol/L (136-145); Total Bilirubin 0.6 mg/dL (0.15-1.2); Total Protein 7.6 g/dL (6.6-8.7)
[2023-08-21] MEDS: perflutren protein-a microsphr 0.22 mg/mL SDV 3 mL IV (06:10)
[2023-08-21 07:08] LABS: Glucose Point of Care 158 mg/dL (70-110)
--- NOTE | 2023-08-21 08:04 | P.PN_ITS ---
Subjective 2 Subjective: Patient still complaining of knee pain. Vitals/I&O/Wt Last Vital Signs Temp 98.3 F 08/21/23 07:25 Pulse 73 08/21/23 07:25 Resp 18 08/21/23 07:25 BP 133/73 08/21/23 07:25 Pulse Ox 97 08/21/23 07:25 O2 Del Method Nasal Cannula 08/21/23 07:25 O2 Flow Rate 4 08/21/23 02:16 08/20/23 08/21/23 08/21/23 22:59 06:59 14:59 Intake Total 730 / 730 Output Total 5450 / 5450 1700 / 7150 Balance -4720 / -4720 -1700 / -6420 Weight last 48 hrs Weight 282 lb Weight 282 lb Weight 282 lb Physical Exam 2 Narrative: Continued swelling Urinary Catheter Management: Barnes: Cath Placed During This Visit: yes Reason for Continuing Indwelling Catheter: Acute Urinary Retention or Obstruction Urinary Catheter Date of Insertion: 08/20/23 Urinary Catheter Time of Insertion: 16:00 Data 08/21/23 05:26 08/21/23 05:26 A&P Assessment and plan (1) Effusion of knee joint, left: Will attempt a aspiration and possibly inject steroid when supplies are at bedside. Attestations 2 Medical Necessity Statement*: Per primary service Coding Level of Care Code Acute Code for Chg Fwd Diagnoses Effusion of knee joint, left M25.462
[2023-08-21] MEDS: budesonide 0.5 mg/2 mL Neb INHALATION ×2 (08:10→19:53)
[2023-08-21] MEDS: magnesium sulfate premix 2 GM/50 ML PIGGYBACK IV (08:16)
[2023-08-21] MEDS: allopurinol 100 mg Tablet PO (08:17)
[2023-08-21] MEDS: potassium chloride ER 20 mEq Tablet 40 MEQ PO ×2 (08:17→11:51)
[2023-08-21] MEDS: pantoprazole DR 40 mg Tablet PO (08:17)
[2023-08-21] MEDS: insulin lispro 100 unit/1 mL SUBCUT ×4 (08:17→21:48)
[2023-08-21] MEDS: aspirin 81 mg Chew Tablet PO (08:17)
[2023-08-21] MEDS: docusate sodium 100 mg Capsule PO ×2 (08:17→17:36)
[2023-08-21] MEDS: doxazosin 4 mg Tablet PO (08:17)
[2023-08-21] MEDS: atenolol 50 mg Tablet PO (08:18)
[2023-08-21] MEDS: isosorbide mononitrate ER 30 mg Tablet PO (08:18)
[2023-08-21] MEDS: finasteride 5 mg Tablet PO (08:18)
--- NOTE | 2023-08-21 08:22 | P.PN_ITS ---
Documented by User: EDWIN Peterson STDJERMAINE 08/21/23 09:19 Subjective 2 Subjective: Patient resting in bed on 4L NC states this is his baseline oxygen. He denies chest pain, N&V, shortness of breath this morning. Mr. Brownlee stated that he did have pain in his left knee. Medications: Reviewed: Yes Vitals/I&O/Wt Last Vital Signs Temp 98.3 F 08/21/23 07:25 Pulse 74 08/21/23 08:10 Resp 18 08/21/23 08:10 BP 133/73 08/21/23 07:25 Pulse Ox 96 08/21/23 08:10 O2 Del Method Nasal Cannula 08/21/23 08:10 O2 Flow Rate 4 08/21/23 08:10 08/20/23 08/21/23 08/21/23 22:59 06:59 14:59 Intake Total 730 / 730 600 / 600 Output Total 5450 / 5450 1700 / 7150 Balance -4720 / -4720 -1700 / -6420 600 / 600 Weight last 48 hrs Weight 282 lb Weight 282 lb Weight 282 lb Physical Exam 2 Narrative: General exam demonstrates a conversant white male on 4 L of oxygen reporting his left knee hurts. HEENT: Atraumatic and normocephalic. Pupils equally round. Oropharynx clear. Neck is supple obese. Cardiovascular regular rate, rhythm, no murmur Lungs diminished breath sounds bilaterally. No wheezing Abdomen is soft, positive bowel sounds. Hernias noted, midline, easily reducible exam is deferred Extremities show 1+ edema bilaterally. Cellulitis is noted on the right sosa with increased erythema, edema, and a little bit of blistering. Slight increase in warmth. Distal refill is intact. Left knee demonstrates no erythema. It is evident a likely effusion as there is the knee appears to have an effusion and is slightly bent at an angle for comfort. Skin see findings above Neuro no focal deficits Urinary Catheter Management: Barnes: Cath Placed During This Visit: yes Reason for Continuing Indwelling Catheter: Acute Urinary Retention or Obstruction Urinary Catheter Date of Insertion: 08/20/23 Urinary Catheter Time of Insertion: 16:00 Data 08/21/23 05:26 08/21/23 05:26 A&P Assessment and plan (1) Knee pain, left: Patient presents to the hospital with left knee pain, he has known arthritis of this knee. I suspect a significant effusion, and think infection is less likely. Continue oxycodone as needed for pain as he is not a candidate for anti- inflammatory secondary to his acute on chronic kidney dysfunction. Check uric acid 08/20/23 noted to be slightly elevated at 10.7. Orthopedic consultation. Physical therapy consultation (2) Cellulitis of leg, right: Patient has cellulitis of his right lower extremity, this is recurred in the past and appears to be recurring now. Continue vancomycin Close follow-up with CBC, CMP levels daily as well as trough levels were appropriate. (3) CHF exacerbation: Patient appears to be having a CHF exacerbation with increased shortness of breath, and increased lower extremity edema. Continue diuresis with IV diuretics. Hold his metolazone and initiate Bumex 2 mg IV every 12 hours. Will hold his spironolactone now as well. Replace with 2gm magnesium today. Replace potassium with 40meq PO today. Echocardiogram pending. Qualifiers: Heart failure type: unspecified Qualified Code(s): I50.9 - Heart failure, unspecified (4) Leukocytosis: Patient has leukocytosis, this could be secondary to his cellulitis Cannot completely rule out bone marrow issue/CML secondary to white blood cell count being elevated in the past and slightly high monocytes Recommend outpatient follow-up with hematology. (5) Anemia: Check stool Hemoccult Anemia panel Follow-up with CBC tomorrow (6) Acute kidney injury: Patient with acute kidney injury, superimposed on chronic kidney disease This may be secondary to hepatorenal syndrome Avoid renal toxic medication Diurese, follow creatinine closely CK WNL at 55, Lipitor (7) COPD (chronic obstructive pulmonary disease): Patient with underlying COPD No evidence of exacerbation currently DuoNeb every 6 hours, budesonide twice daily Qualifiers: COPD type: emphysema Emphysema type: centrilobular Qualified Code(s): J43.2 - Centrilobular emphysema (8) Diabetes: Hold diabetic medication Sliding scale insulin Consistent carb, cardiac diet Plan Multiple other problems as outlined in past medical history Full code Heparin will be used for DVT prophylaxis. 1 dose tonight, then hold in case arthrocentesis is done tomorrow. Coding Level of Care Code 15193 Diagnoses Knee pain, left M25.562 Cellulitis of leg, right L03.115 CHF exacerbation I50.9 Heart failure type: unspecified Leukocytosis D72.829 Anemia D64.9 Acute kidney injury N17.9 Centrilobular emphysema J43.2 COPD type: emphysema Emphysema type: centrilobular Diabetes E11.9 Time Spent (min) 26 Documented by User: Randall Medina MD 08/21/23 10:55 Subjective 2 Subjective: Patient resting in bed on 4L NC states this is his baseline oxygen. He denies chest pain, N&V, shortness of breath this morning. Mr. Brownlee stated that he did have pain in his left knee. When catheter was put in yesterday he had residual urine of 2300 cc. Physical Exam 2 Narrative: General exam demonstrates a conversant white male on 4 L of oxygen reporting his left knee hurts. Neck is supple obese. Cardiovascular regular rate, rhythm, no murmur Lungs diminished breath sounds bilaterally. No wheezing Abdomen is soft, positive bowel sounds. Hernias noted, midline, easily reducible exam demonstrates Barnes Extremities show 1+ edema bilaterally. Cellulitis is noted on the right sosa with increased erythema, edema, and a little bit of blistering. This is improved from yesterday. Left knee unchanged. Urinary Catheter Management: Barnes: Cath Placed During This Visit: yes Data 08/21/23 05:26 08/21/23 05:26 A&P Assessment and plan (1) Knee pain, left: Patient presents to the hospital with left knee pain, he has known arthritis of this knee. I suspect a significant effusion, and think infection is less likely. Continue oxycodone as needed for pain as he is not a candidate for anti- inflammatory secondary to his acute on chronic kidney dysfunction. Check uric acid 08/20/23 noted to be slightly elevated at 10.7. Orthopedic consultation appreciated. Possible arthrocentesis today. Physical therapy consultation (2) Cellulitis of leg, right: Patient has cellulitis of his right lower extremity, this is recurred in the past and appears to be recurring now. Continue vancomycin Close follow-up with CBC, CMP levels daily as well as trough levels were appropriate. Vancomycin is a positionally renal toxic medicine (3) CHF exacerbation: Patient appears to be having a CHF exacerbation with increased shortness of breath, and increased lower extremity edema. Urinary retention was significant. Hold further diuresis today. Replace with 2gm magnesium today. Replace potassium with 40meq PO today. Echocardiogram pending. Qualifiers: Heart failure type: unspecified Qualified Code(s): I50.9 - Heart failure, unspecified (4) Leukocytosis: Patient has leukocytosis, this could be secondary to his cellulitis Cannot completely rule out bone marrow issue/CML secondary to white blood cell count being elevated in the past and slightly high monocytes Recommend outpatient follow-up with hematology. CBC, BMP, magnesium level tomorrow (5) Anemia: Check stool Hemoccult Iron deficiency anemia noted Follow-up with CBC tomorrow (6) Acute kidney injury: Patient with acute kidney injury, superimposed on chronic kidney disease This may be secondary to hepatorenal syndrome. There is also definitely affected by urinary retention. Barnes was placed, 2300 residual urine. He will discharge with Barnes. He is already on doxazosin. Avoid renal toxic medication Significant diuresis for urinary retention. Hold further Bumex. Recheck creatinine tomorrow. Appears to be improving. CK WNL at 55, Lipitor resumed (7) COPD (chronic obstructive pulmonary disease): Qualifiers: COPD type: emphysema Emphysema type: centrilobular Qualified Code(s): J43.2 - Centrilobular emphysema (8) Diabetes: Plan Multiple other problems as outlined in past medical history Full code Heparin will be used for DVT prophylaxis. Holding for possible arthrocentesis today. Attestations 2 Medical Necessity Statement*: Needs continued hospitalization for IV antibiotics secondary to cellulitis, close follow-up of acute kidney injury, evaluation of left knee swelling by orthopedics and physical therapy. Diagnoses Knee pain, left M25.562 Cellulitis of leg, right L03.115 CHF exacerbation I50.9 Heart failure type: unspecified Leukocytosis D72.829 Anemia D64.9 Acute kidney injury N17.9 Centrilobular emphysema J43.2 COPD type: emphysema Emphysema type: centrilobular Diabetes E11.9 Time Spent (min) 26
--- NOTE | 2023-08-21 09:43 | PC.NURSE ---
PROCEDURE NOTE 0943 Site verified and marked by Dr. Ovalle and verified with patient. 0945 Timeout completed with myself, Jared Thomas, RN Nurse Box Stapler, Siomara Malone RN, Dr. Ovalle, and patient. 0949 1% Lidocaine 3mL overrode from Pyxis by Jared Thomas, RN. Dr. Ovalle injected Lidocaine lateral to site marked and agreed upon by us and patient during timeout. Patient tolerated well. 0957 Dr. Ovalle attempted aspiration of synovial fluid with no success. Patient tolerated attempt well with no increased discomfort. Dr. Ovalle informed patient that there was minimal fluid in the joint and that it would be monitored during hospitalization. Patient is in agreement with plan at this time.
--- NOTE | 2023-08-21 09:45 | PC.NURSE ---
Lidocaine 1% 10 mL pulled from Pyxis according to verbal order with read back from Dr. Ovalle at the bedside. Upon returning with Lidocaine vial, the vial was almost empty, so he pulled 1.5 mL during the procedure from that vial. I obtained another vial from the Pyxis on override under 10 mL d/t being unsure of specific quantity physician needed. He obtained 1.5 mL from new vial retrieved from Pyxis. 3 mL total administered to patient during bedside synovial fluid aspiration of the left knee witnessed by myself, Hitesh Grider RN, and Siomara Malone RN. After the procedure was complete, I wasted a total of 17 mL in the Pyxis between both pulls of 10 mL and placed the verbal order received from Dr. Ovalle for the 3 mL used during his procedure. The empty vial was discarded as appropriate. Pharmacy notified, spoke with Jose Juan at [facility] and informed him of the above information. He verbalized agreement with process of pulling both vials d/t the first being almost empty and agreed with discarding empty vial.
--- NOTE | 2023-08-21 10:09 | PC.CHAP ---
Pastoral Care Encounter/Spiritual Assessment Type of Contact [] Declined senior product consultant visit [] Patient/Family/Request visit [] Outpatient visit [] Follow-up visit [] Physician referral [] Code/Alert [] Routine visit [] Staff referral [] Actively dying [x] Patient sleeping [] Family support [] [] Out of room [] Palliative care [] [] Receiving care in room [] Pre-surgical visit [] Trauma [] Long length of stay [] ICU visit [] Other: Relational/Emotional Strength [] Patient feels connected with others/family/visitors/staff [] Distress [] Loneliness/isolation [] Abandonment Spirituality of Patient [] Person of Charu [] Attends Buddhism of their Charu [] Believes in Prayer [] Reads Bible or Congregation materials [] There are Spiritual issues to be addressed [place] [employer] Interventions [] Prayer [] Active listening [] Non-anxious presence [] Spiritual/emotional support [] Crisis/trauma care [] Spiritual counseling [] Bereavement support [] Provided bereavement packet [] Provided Bible/devotional materials [] Provided toy/stuffed animal, coloring book to patient or family member [] Provided Communion [] Anointing/[place] [] Salvation [] Completed spiritual assessment [] Other: Impact on Illness or Injury [] Angry [] Fearful [] Anxious [] Often cries [] Exhaustion [] Unable to work [] Unable to attend confucianist [] Unable to walk/stand [] Unable to read [] Unable to drive [] Unable to eat/drink [] Unable to sleep [] Unable to be with family [] Patient intubated [] Other: Summary Time spent with patient
--- NOTE | 2023-08-21 10:10 | PM.OP2 ---
Brief Operative Note Date of procedure: 08/21/23 Pre-op diagnosis: Left knee effusion Post-op diagnosis: same Procedure Done: Left knee aspiration The left knee was cleaned with alcohol and Betadine solution. The skin was anesthetized with lidocaine. 18-gauge needle was inserted into the knee no fluid was able to be pulled out. Estimated blood loss (mL): 5 Coding Level of Care Code Acute Code for Chg Fwd
[2023-08-21] MEDS: lidocaine 1% INJ 10 mL (per mL) 3 ML INTRADERMA (10:57)
[2023-08-21 12:03] LABS: Glucose Point of Care 186 mg/dL (70-110)
[2023-08-21] MEDS: vancomycin 1,250 MG/250 ML PIGGYBACK 250 MG IV (15:14)
[2023-08-21 17:26] LABS: Glucose Point of Care 162 mg/dL (70-110)
[2023-08-21] MEDS: atorvastatin 40 mg Tablet PO (17:36)
[2023-08-21] MEDS: heparin 5,000 unit/mL INJ 1 mL 5000 UNIT SUBCUT (17:36)
[2023-08-21 21:25] LABS: Glucose Point of Care 180 mg/dL (70-110)
--- NOTE | 2023-08-21 23:48 | PC.NURSE ---
When this nurse was at the bedside of this patient's roommate doing bedside report patient yelled thats enough . This nurse was doing roommate's assessment patient started yelling again stating Knock it off , Shut up This nurse asked patient what is wrong and he said [facility], be quiet Patient continues to yell at staff when we go in the room to do care with his roommate.
[2023-08-22] VITALS (10 sets, daily range): BP systolic 115–134; BP diastolic 63–73; PULSE 66–75; RESP 15–18; TEMP 36.4–36.8; O2SAT 95–99
[2023-08-22 05:32] LABS: Basophils # 0.1 10^3/uL (0.0-0.1); Basophils % 0.3 %; Eosinophils # 0.3 10^3/uL (0.0-0.8); Eosinophils % 1.7 %; Hematocrit 31.2 % (37-53); Lymphocytes # 1.1 10^3/uL (0.8-4.8); Lymphocytes % 6.8 %; Mean Corpuscular HGB Conc 32.7 g/dL (30-55); Mean Corpuscular Hemoglobin 28.8 pg (27-33); Mean Corpuscular Volume 88.1 fl (82-101); Monocytes # 1.3 10^3/uL (0.2-0.9); Neutrophils # 13.35 10^3/uL (1.8-7.7); Neutrophils % 82.5 %; Nucleated Red Blood Cells % 0 %; Platelet Count 286 10^3/cmm (157-399); Red Blood Count 3.54 10^6/uL (3.85-5.65); Red Cell Distribution Width 15.3 % (12.1-15.1); White Blood Count 16.19 10^3/uL (3.29-11.43)
[2023-08-22] MEDS: heparin 5,000 unit/mL INJ 1 mL 5000 UNIT SUBCUT ×2 (05:35→17:44)
[2023-08-22 05:54] LABS: Anion Gap 18.7 (5-19); Blood Urea Nitrogen 66 mg/dL (8-23); Calcium 9.4 mg/dL (8.5-10.5); Carbon Dioxide 26 mmol/L (22-29); Chloride 92 mmol/L (98-107); Glucose 152 mg/dL (65-115); Osmolality Calculated 298 mOsm/kg (285-295); Potassium 3.7 mmol/L (3.5-5.1); Sodium 133 mmol/L (136-145)
[2023-08-22 06:34] LABS: Glucose Point of Care 168 mg/dL (70-110)
[2023-08-22] MEDS: doxazosin 4 mg Tablet PO (08:49)
[2023-08-22] MEDS: isosorbide mononitrate ER 30 mg Tablet PO (08:49)
[2023-08-22] MEDS: pantoprazole DR 40 mg Tablet PO (08:49)
[2023-08-22] MEDS: docusate sodium 100 mg Capsule PO ×2 (08:49→17:44)
[2023-08-22] MEDS: finasteride 5 mg Tablet PO (08:49)
[2023-08-22] MEDS: aspirin 81 mg Chew Tablet PO (08:49)
[2023-08-22] MEDS: insulin lispro 100 unit/1 mL SUBCUT ×3 (08:49→21:52)
[2023-08-22] MEDS: atenolol 50 mg Tablet PO (08:49)
[2023-08-22] MEDS: allopurinol 100 mg Tablet PO (08:49)
--- NOTE | 2023-08-22 08:53 | P.PN_ITS ---
Documented by User: EDWIN You STDNT 08/22/23 10:13 Subjective 2 Subjective: Santosh Brownlee is a 73-year-old white male who presented 08/20/2023 with acute left knee pain inhibiting his weightbearing. He also has cellulitis of his right lower extremity on his sosa, which is noticeably improved today decreased erythema and increased rubor. He was in the hospital yesterday and emotionally withdrawn. Today he is better saying he is feels wonderful besides his legs, and is readily conversant. He says he has pain in his left knee with movement and he cannot straighten his left leg, there is also pain in his ankle with movement. He reports mild pain in his right leg. He was able to stand with knees bent with significant assistance by PT today. He has been eating okay without nausea or vomiting last bowel movement was 4 days ago, diuresis is good with has 2600 mL out and 970 mL in. He reports minimal shortness of breath with getting up out of bed. Vitals/I&O/Wt Last Vital Signs Temp 97.6 F 08/22/23 07:52 Pulse 70 08/22/23 07:52 Resp 15 08/22/23 07:52 BP 120/63 08/22/23 07:52 Pulse Ox 98 08/22/23 07:52 O2 Del Method Nasal Cannula 08/22/23 07:52 O2 Flow Rate 4 08/22/23 04:00 08/21/23 08/22/23 08/22/23 22:59 06:59 14:59 Intake Total 490 / 1380 240 / 240 Output Total 1150 / 2050 550 / 2600 Balance -660 / -670 -550 / -1220 240 / 240 Weight last 48 hrs Weight 282 lb Weight 282 lb Physical Exam 2 Narrative: General alert and oriented x 3, pleasant HEENT normocephalic atraumatic extraocular movements intact PERRL Cardiac heart sounds distant normal rate and rhythm radial pulses intact bilateral 2+ edema lower extremity Pulmonary normal breath sounds no wheezes rubs or rhonchi Abdomen bowel sounds normal, no organomegaly, decreased fluid, decreased distention deferred Barnes noted Extremity right lower extremity cellulitis noticeably improved decreased erythema and swelling, increased right upper, left lower extremity cannot straighten without pain within the knee, no pain to touch, decreased swelling from yesterday Neuro no focal deficit Psych normal mood and affect, Urinary Catheter Management: Barnes: Cath Placed During This Visit: yes Reason for Continuing Indwelling Catheter: Acute Urinary Retention or Obstruction Urinary Catheter Date of Insertion: 08/20/23 Urinary Catheter Time of Insertion: 16:00 Data 08/22/23 05:13 08/22/23 05:13 A&P Assessment and plan (1) Knee pain, left: Patient presents to the hospital with left knee pain, he has known arthritis of this knee. Knee x-ray shows medial joint space narrowing consistent with osteoarthritis Athrocentesis by orthopedics yielded no fluid, no infection Possibility for gout exasperation as uric acid on 08/20/23 noted to be slightly elevated at 10.7 Continue allopurinol as he has been on this chronically Start prednisone 40 mg PO daily for arthritis Continue oxycodone as needed for pain as he is not a candidate for anti- inflammatory secondary to his acute on chronic kidney dysfunction. Continue physical therapy to help patient stand and walk on his own Possible referral for prison care (2) Cellulitis of leg, right: Patient has recurrent cellulitis of his right lower extremity, and is noticeably improved today Continue vancomycin for 24 hours and then discontinue Close follow-up with CBC, CMP levels daily as well as trough levels were appropriate. Vancomycin is a positionally renal toxic medicine (3) CHF exacerbation: Patient appears to be having a CHF exacerbation with increased shortness of breath, and increased lower extremity edema. Urinary retention was significant at over 2 L. Continue Barnes catheter for 2 weeks to allow bladder time to contract. Patient has had significant diuresis. Echocardiogram not concerning with mildly increased QRS at 110ms consistent with moderate intraventricular conduction delay Echo not concerning with 50 to 55% ejection fraction Continue a atenolol 50 daily Continue isosorbide mononitrate 30 mg daily Qualifiers: Heart failure type: unspecified Qualified Code(s): I50.9 - Heart failure, unspecified (4) Leukocytosis: Patient has leukocytosis, this could be secondary to his cellulitis Cannot completely rule out bone marrow issue/CML secondary to white blood cell count being elevated in the past and slightly high monocytes Recommend outpatient follow-up with hematology. CBC, BMP Check uric acid 08/20/23 noted to be slightly elevated at 10.7. (5) Anemia: Check stool Hemoccult Iron deficiency anemia noted Follow-up with CBC tomorrow (6) Acute kidney injury: Patient with acute kidney injury, superimposed on chronic kidney disease This may be secondary to hepatorenal syndrome. There is also definitely affected by urinary retention. Barnes was placed, 2300 residual urine. He will discharge with Barnes. He is already on doxazosin. Avoid renal toxic medication Significant diuresis for urinary retention. Hold further Bumex. Recheck BUN and creatinine tomorrow. Appears to be improving with decreased swelling in abdomen, upper and lower extremities. (7) COPD (chronic obstructive pulmonary disease): Patient with underlying COPD No evidence of exacerbation currently DuoNeb every 6 hours, budesonide twice daily Qualifiers: COPD type: emphysema Emphysema type: centrilobular Qualified Code(s): J43.2 - Centrilobular emphysema (8) Diabetes: Hold diabetic medication Sliding scale insulin Consistent carb, cardiac diet Plan Multiple other problems as outlined in past medical history Full code Heparin will be used for DVT prophylaxis. Attestations 2 Medical Necessity Statement*: Patient will need continued hospitalization until his function is noticeably improving in his left knee, enough to go to prison facility with PT rehab. Coding Level of Care Code 06642 Diagnoses Knee pain, left M25.562 Cellulitis of leg, right L03.115 CHF exacerbation I50.9 Heart failure type: unspecified Leukocytosis D72.829 Anemia D64.9 Acute kidney injury N17.9 Centrilobular emphysema J43.2 COPD type: emphysema Emphysema type: centrilobular Diabetes E11.9 Time Spent (min) 24 Documented by User: Randall Medina MD 08/22/23 10:30 Subjective 2 Subjective: Santosh Brownlee is a 73-year-old white male who presented 08/20/2023 with acute left knee pain inhibiting his weightbearing. He also has cellulitis of his right lower extremity on his sosa, which is noticeably improved today decreased erythema and increased rubor. Today he is better saying he is feels wonderful besides his legs, and is readily conversant. He says he has pain in his left knee with movement and he cannot straighten his left leg, there is also pain in his ankle with movement. He reports mild pain in his right leg. He was able to stand with knees bent with significant assistance by PT today. He has been eating okay without nausea or vomiting last bowel movement was 4 days ago, diuresis is good with has 2600 mL out and 970 mL in. He reports minimal shortness of breath with getting up out of bed. Physical Exam 2 Urinary Catheter Management: Barnes: Cath Placed During This Visit: yes Data 08/22/23 05:13 08/22/23 05:13 A&P Assessment and plan (1) Knee pain, left: Patient presents to the hospital with left knee pain, he has known arthritis of this knee. Knee x-ray shows medial joint space narrowing consistent with osteoarthritis Athrocentesis by orthopedics yielded no fluid, no infection Possibility for gout exacerbation as uric acid on 08/20/23 noted to be slightly elevated at 10.7 Continue allopurinol as he has been on this chronically Start prednisone 40 mg PO daily for arthritis Continue oxycodone as needed for pain as he is not a candidate for anti- inflammatory secondary to his acute on chronic kidney dysfunction. Continue physical therapy to help patient stand and walk on his own Possible referral for prison care (2) Cellulitis of leg, right: Patient has recurrent cellulitis of his right lower extremity, and is noticeably improved today Continue vancomycin for 24 hours and then possible conversion to p.o. antibiotic Close follow-up with CBC, CMP levels daily as well as trough levels were appropriate. Vancomycin is a positionally renal toxic medicine Significantly improved (3) CHF exacerbation: Patient appears to be having a CHF exacerbation with increased shortness of breath, and increased lower extremity edema. Urinary retention was significant at over 2 L. Continue Barnes catheter for 2 weeks to allow bladder time to contract. Patient has had significant diuresis. Echocardiogram not concerning with mildly increased QRS at 110ms consistent with moderate intraventricular conduction delay Echo not concerning with 50 to 55% ejection fraction Continue a atenolol 50 daily Continue isosorbide mononitrate 30 mg daily Have held diuresis today, with monitoring renal function. Likely resume tomorrow with p.o. diuretic Qualifiers: Heart failure type: unspecified Qualified Code(s): I50.9 - Heart failure, unspecified (4) Leukocytosis: (5) Anemia: (6) Acute kidney injury: (7) COPD (chronic obstructive pulmonary disease): Qualifiers: COPD type: emphysema Emphysema type: centrilobular Qualified Code(s): J43.2 - Centrilobular emphysema (8) Diabetes: Diagnoses Knee pain, left M25.562 Cellulitis of leg, right L03.115 CHF exacerbation I50.9 Heart failure type: unspecified Leukocytosis D72.829 Anemia D64.9 Acute kidney injury N17.9 Centrilobular emphysema J43.2 COPD type: emphysema Emphysema type: centrilobular Diabetes E11.9 Time Spent (min) 24
[2023-08-22] MEDS: budesonide 0.5 mg/2 mL Neb INHALATION (09:00)
[2023-08-22] MEDS: ipratropium-albuterol 3 mL Neb INHALATION ×2 (09:00→14:04)
[2023-08-22] MEDS: predniSONE 20 mg Tablet 40 MG PO (09:43)
[2023-08-22 11:53] LABS: Glucose Point of Care 256 mg/dL (70-110)
[2023-08-22] MEDS: TRAMadol 50 mg Tablet PO (12:13)
[2023-08-22] MEDS: oxyCODONE 5 mg IR Tab/Cap PO (13:48)
[2023-08-22] MEDS: vancomycin 1,250 MG/250 ML PIGGYBACK 250 MG IV (15:02)
[2023-08-22 17:14] LABS: Glucose Point of Care 217 mg/dL (70-110)
[2023-08-22] MEDS: atorvastatin 40 mg Tablet PO (17:44)
[2023-08-22 21:52] LABS: Glucose Point of Care 155 mg/dL (70-110)
[2023-08-23] VITALS (10 sets, daily range): BP systolic 101–139; BP diastolic 55–78; PULSE 58–66; RESP 14–18; TEMP 36.7–36.9; O2SAT 93–97; BMI 39.0
[2023-08-23 00:10] LABS: Glucose Point of Care 146 mg/dL (70-110)
[2023-08-23] MEDS: heparin 5,000 unit/mL INJ 1 mL 5000 UNIT SUBCUT ×2 (05:27→17:50)
[2023-08-23 05:38] LABS: Basophils % 0.2 %; Eosinophils # 0.2 10^3/uL (0.0-0.8); Eosinophils % 1.4 %; Hematocrit 31.6 % (37-53); Lymphocytes # 1.3 10^3/uL (0.8-4.8); Lymphocytes % 8.2 %; Mean Corpuscular HGB Conc 32.6 g/dL (30-55); Mean Corpuscular Hemoglobin 28.9 pg (27-33); Mean Corpuscular Volume 88.5 fl (82-101); Mean Platelet Volume 9.1 fL (7.4-10.4); Monocytes # 1.2 10^3/uL (0.2-0.9); Monocytes % 7.4 %; Neutrophils # 12.98 10^3/uL (1.8-7.7); Neutrophils % 82.1 %; Nucleated Red Blood Cells % 0 %; Platelet Count 317 10^3/cmm (157-399); Red Blood Count 3.57 10^6/uL (3.85-5.65); White Blood Count 15.81 10^3/uL (3.29-11.43)
[2023-08-23 05:59] LABS: Anion Gap 19.8 (5-19); Blood Urea Nitrogen 73 mg/dL (8-23); Calcium 9.5 mg/dL (8.5-10.5); Carbon Dioxide 24 mmol/L (22-29); Chloride 93 mmol/L (98-107); Glucose 128 mg/dL (65-115); Osmolality Calculated 299 mOsm/kg (285-295); Potassium 3.8 mmol/L (3.5-5.1); Sodium 133 mmol/L (136-145)
[2023-08-23 06:09] LABS: Magnesium 2.1 mg/dL (1.7-2.3)
[2023-08-23 07:07] LABS: Glucose Point of Care 124 mg/dL (70-110)
[2023-08-23] MEDS: finasteride 5 mg Tablet PO (08:36)
[2023-08-23] MEDS: aspirin 81 mg Chew Tablet PO (08:36)
[2023-08-23] MEDS: isosorbide mononitrate ER 30 mg Tablet PO (08:36)
[2023-08-23] MEDS: docusate sodium 100 mg Capsule PO ×2 (08:37→17:49)
[2023-08-23] MEDS: doxazosin 4 mg Tablet PO (08:37)
[2023-08-23] MEDS: allopurinol 100 mg Tablet PO (08:37)
[2023-08-23] MEDS: pantoprazole DR 40 mg Tablet PO (08:37)
[2023-08-23] MEDS: predniSONE 20 mg Tablet 40 MG PO (08:39)
[2023-08-23] MEDS: budesonide 0.5 mg/2 mL Neb INHALATION ×2 (08:44→21:11)
[2023-08-23] MEDS: ipratropium-albuterol 3 mL Neb INHALATION ×2 (08:44→21:11)
[2023-08-23] MEDS: atenolol 50 mg Tablet PO (08:54)
--- NOTE | 2023-08-23 09:33 | P.PN_ITS ---
Documented by User: EDWIN You STDJERMAINE 08/23/23 10:14 Subjective 2 Subjective: Santosh Brownlee is a 73-year-old white male who presented 08/20/2023 with acute left knee pain inhibiting his weightbearing. He also has cellulitis of his right lower extremity on his sosa, which is improved from admission and unchanged from yesterday. Today he is unchanged from yesterday. He said he feels wonderful besides his legs he cannot straighten his left knee due to pain pain in his left foot is slightly better from yesterday although still present. His appetite is good no nausea or beings bowel movement was 5 days ago. No no shortness of breath or cough. No syncope, lightheadedness or chest pain. No abdominal tenderness. No other concern. Vitals/I&O/Wt Last Vital Signs Temp 98.0 F 08/23/23 08:00 Pulse 63 08/23/23 08:44 Resp 16 08/23/23 08:44 BP 139/78 08/23/23 08:00 Pulse Ox 96 08/23/23 08:44 O2 Del Method Nasal Cannula 08/23/23 08:44 O2 Flow Rate 4 08/23/23 08:44 08/22/23 08/23/23 08/23/23 22:59 06:59 14:59 Intake Total 250 / 730 360 / 360 Output Total 950 / 950 850 / 1800 Balance -700 / -220 -850 / -1070 360 / 360 Weight last 48 hrs Weight 272 lb 4.8 oz Physical Exam 2 Narrative: General alert and oriented x 4, pleasant HEENT normocephalic atraumatic extraocular movements intact PERRL Cardiac heart sounds distant normal rate and rhythm radial pulses intact bilateral 2+ edema lower extremity Pulmonary decreased breath sounds throughout, inspiratory wheeze in bases, upper and lower lobes anterior and posterior Abdomen bowel sounds normal, no organomegaly, abdominal distention as present deferred Barnes noted Extremity right lower extremity cellulitis has dark [place] and is superficial no warmth or erythema no purulence, left lower extremity cannot straighten without pain within the knee joint, no pain to touch, small bruise unchanged, left foot joint pain slightly better from yesterday, 2+ pitting edema lower extremities bilaterally Neuro no focal deficit Psych normal mood and affect, Urinary Catheter Management: Barnes: Cath Placed During This Visit: yes Reason for Continuing Indwelling Catheter: Other Urinary Catheter Date of Insertion: 08/20/23 Urinary Catheter Time of Insertion: 16:00 Data 08/23/23 05:14 08/23/23 05:14 A&P Assessment and plan (1) Knee pain, left: Patient presents to the hospital with left knee pain, he has known arthritis of this knee. Knee x-ray shows medial joint space narrowing consistent with osteoarthritis Athrocentesis by orthopedics yielded no fluid, no infection Possibility for gout exacerbation as uric acid on 08/20/23 noted to be slightly elevated at 10.7 Continue allopurinol as he has been on this chronically Continue prednisone 40 mg PO daily for arthritis Continue oxycodone as needed for pain as he is not a candidate for anti- inflammatory secondary to his acute on chronic kidney dysfunction. Continue physical therapy to help patient stand and walk on his own Referral for long term care (2) Cellulitis of leg, right: Patient has recurrent cellulitis of his right lower extremity, unchanged from yesterday Discontinue vancomycin And start cephalexin 500 mg q6h Close follow-up with CBC, CMP levels daily as well as trough levels were appropriate. Significantly improved (3) CHF exacerbation: Patient appears to be having a CHF exacerbation with increased shortness of breath, and increased lower extremity edema. Urinary retention was significant at over 2 L. Continue Barnes catheter for 2 weeks to allow bladder time to contract. Patient has had significant diuresis. Echocardiogram not concerning with mildly increased QRS at 110ms consistent with moderate intraventricular conduction delay Echo not concerning with 50 to 55% ejection fraction Continue a atenolol 50 daily Continue isosorbide mononitrate 30 mg daily Resume matolazone 5mg p.o. daily Qualifiers: Heart failure type: unspecified Qualified Code(s): I50.9 - Heart failure, unspecified (4) Leukocytosis: Patient has leukocytosis, this could be secondary to his cellulitis Cannot completely rule out bone marrow issue/CML secondary to white blood cell count being elevated in the past and slightly high monocytes Recommend outpatient follow-up with hematology. CBC, BMP Check uric acid 08/20/23 noted to be slightly elevated at 10.7. (5) Anemia: Check stool Hemoccult Iron deficiency anemia noted Follow-up with CBC tomorrow (6) Acute kidney injury: Patient with acute kidney injury, superimposed on chronic kidney disease This may be secondary to hepatorenal syndrome. There is also definitely affected by urinary retention. Barnes was placed, 2300 residual urine. He will discharge with Barnes. He is already on doxazosin. Avoid renal toxic medication Significant diuresis for urinary retention. Hold further Bumex. Recheck BUN and creatinine tomorrow. (7) COPD (chronic obstructive pulmonary disease): Patient with underlying COPD No evidence of exacerbation currently DuoNeb every 6 hours, budesonide twice daily Qualifiers: COPD type: emphysema Emphysema type: centrilobular Qualified Code(s): J43.2 - Centrilobular emphysema (8) Diabetes: Hold diabetic medication Sliding scale insulin Consistent carb, cardiac diet Plan Multiple other problems as outlined in past medical history Full code Heparin will be used for DVT prophylaxis. Attestations 2 Medical Necessity Statement*: Patient can be discharged to long term facility. Coding Level of Care Code 94339 Diagnoses Knee pain, left M25.562 Cellulitis of leg, right L03.115 CHF exacerbation I50.9 Heart failure type: unspecified Leukocytosis D72.829 Anemia D64.9 Acute kidney injury N17.9 Centrilobular emphysema J43.2 COPD type: emphysema Emphysema type: centrilobular Diabetes E11.9 Time Spent (min) 26 Documented by User: Randall Medina MD 08/23/23 10:37 Physical Exam 2 Urinary Catheter Management: Barnes: Cath Placed During This Visit: yes Data 08/23/23 05:14 08/23/23 05:14 A&P Assessment and plan (1) Knee pain, left: (2) Cellulitis of leg, right: Patient has recurrent cellulitis of his right lower extremity, unchanged from yesterday Discontinue vancomycin Start Doxy 100mg po BID Close follow-up with CBC, CMP levels daily as well as trough levels were appropriate. Significantly improved (3) CHF exacerbation: Qualifiers: Heart failure type: unspecified Qualified Code(s): I50.9 - Heart failure, unspecified (4) Leukocytosis: (5) Anemia: (6) Acute kidney injury: Patient with acute kidney injury, superimposed on chronic kidney disease This may be secondary to hepatorenal syndrome. There is also definitely affected by urinary retention. Barnes was placed, 2300 residual urine. He will discharge with Barnes. He is already on doxazosin. Avoid renal toxic medication Significant diuresis for urinary retention. Hold further Bumex. Recheck BUN and creatinine tomorrow. Still diuresing. (7) COPD (chronic obstructive pulmonary disease): Qualifiers: COPD type: emphysema Emphysema type: centrilobular Qualified Code(s): J43.2 - Centrilobular emphysema (8) Diabetes: Diagnoses Knee pain, left M25.562 Cellulitis of leg, right L03.115 CHF exacerbation I50.9 Heart failure type: unspecified Leukocytosis D72.829 Anemia D64.9 Acute kidney injury N17.9 Centrilobular emphysema J43.2 COPD type: emphysema Emphysema type: centrilobular Diabetes E11.9 Time Spent (min) 26
[2023-08-23] MEDS: nystatin cream 30 gm 1 APPLIC TOPICAL ×2 (09:40→19:12)
[2023-08-23 11:32] LABS: Glucose Point of Care 198 mg/dL (70-110)
[2023-08-23] MEDS: insulin lispro 100 unit/1 mL SUBCUT ×3 (11:50→21:38)
[2023-08-23 16:48] LABS: Glucose Point of Care 245 mg/dL (70-110)
[2023-08-23] MEDS: atorvastatin 40 mg Tablet PO (17:49)
[2023-08-23] MEDS: doxycycline 100 mg Tablet PO (17:49)
[2023-08-23 21:30] LABS: Glucose Point of Care 176 mg/dL (70-110)
[2023-08-24 04:00] VITALS: BP 128/71; PULSE 57; RESP 17; TEMP 36.7; O2SAT 96
[2023-08-24 05:02] VITALS: BMI 39.2
[2023-08-24] MEDS: heparin 5,000 unit/mL INJ 1 mL 5000 UNIT SUBCUT (05:18)
[2023-08-24 05:58] LABS: Anion Gap 16.8 (5-19); Blood Urea Nitrogen 78 mg/dL (8-23); Calcium 9.6 mg/dL (8.5-10.5); Carbon Dioxide 25 mmol/L (22-29); Chloride 94 mmol/L (98-107); Glucose 120 mg/dL (65-115); Magnesium 2.1 mg/dL (1.7-2.3); Osmolality Calculated 299 mOsm/kg (285-295); Potassium 3.8 mmol/L (3.5-5.1); Sodium 132 mmol/L (136-145)
[2023-08-24 06:52] LABS: Glucose Point of Care 124 mg/dL (70-110)
[2023-08-24 07:28] VITALS: BP 119/69; PULSE 55; RESP 16; TEMP 36.6; O2SAT 96
--- NOTE | 2023-08-24 08:34 | PM.PN ---
Documented by User: EDWIN You STDJERMAINE 08/24/23 09:38 Subjective Subjective: Santosh Brownlee is a 73-year-old male who presented to the ED on 08/20/2023 for left medial knee pain and inability to stand for 1 day due to pain and recurrent cellulitis of right lower extremity. Has a past medical history of bilateral edema of lower extremity gout arthritis diabetes type 2, BPH prostate cancer, CHF, COPD hypertension, obesity and ALEX. His hospital course has been uneventful. Today he states he is doing better and is significantly improved, being able to get up and sit off the side of the bed to eat breakfast. His pain at rest and with movement is significantly decreased in his left knee and feet bilaterally from yesterday. His bruising in his left knee is slightly better. His cellulitis is unchanged from yesterday. Patient has not had a bowel movement for 6 days. No nausea, no vomiting, no loss of appetite. No lightheadedness dizziness, new bruises, chest pain, SOB or other concerns. Vitals/I&O/Wt Last Vital Signs Temp 97.8 F 08/24/23 07:28 Pulse 55 L 08/24/23 07:28 Resp 16 08/24/23 07:28 BP 119/69 08/24/23 07:28 Pulse Ox 96 08/24/23 07:28 O2 Del Method Nasal Cannula 08/24/23 07:28 O2 Flow Rate 4 08/23/23 21:11 08/23/23 08/24/23 08/24/23 22:59 06:59 14:59 Intake Total 240 / 840 Output Total 1200 / 1200 1500 / 2700 Balance -960 / -360 -1500 / -1860 Weight last 48 hrs Weight 273 lb 8 oz Weight 272 lb 4.8 oz Physical Exam Narrative: General alert and oriented to person place time and situation pleasant conversant HEENT normocephalic atraumatic EOMI PERRL neck supple Cardiac heart sounds distant normal rhythm and rate, +2 edema bilaterally lower extremities, radial and dorsal pedal pulses intact Pulmonary breath sounds significantly decreased throughout Abdomen bowel sounds normal, no tenderness deferred Extremities patient is able to straight his left leg to 150 degrees without pain passively and actively, bruising is noticeably better on left knee, left knee is slightly swollen, there is deep pain in the feet with movement and at rest bilaterally, cellulitis of right lower extremity unchanged from yesterday with no bright red erythema, it is dry, ruborous and normal temperature. Neuro no focal deficit Psych normal mood and affect Urinary Catheter Management: Barnes: Cath Placed During This Visit: yes Reason for Continuing Indwelling Catheter: Other Urinary Catheter Date of Insertion: 08/20/23 Urinary Catheter Time of Insertion: 16:00 Data 08/23/23 05:14 08/24/23 05:31 A&P Assessment and plan (1) Knee pain, left: Patient presents to the hospital with left knee pain, he has known arthritis of this knee. Knee x-ray shows medial joint space narrowing consistent with osteoarthritis Athrocentesis by orthopedics yielded no fluid, no infection Arthrocentesis will be repeated today and if there is no infection prednisone joint injection given Possibility for gout exacerbation as uric acid on 08/20/23 noted to be slightly elevated at 10.7 Continue allopurinol as he has been on this chronically Continue prednisone 40 mg PO daily for arthritis Continue oxycodone as needed for pain as he is not a candidate for anti-inflammatory secondary to his acute on chronic kidney dysfunction. Continue physical therapy to help patient stand and walk on his own Pending approval for shelter care (2) Cellulitis of leg, right: Patient has recurrent cellulitis of his right lower extremity, unchanged from the past 2 days Continue Doxy 100mg po BID Close follow-up with CBC, CMP levels daily as well as trough levels were appropriate. Significantly improved (3) CHF exacerbation: Patient appears to be having a resolving CHF exacerbation with increased lower extremity edema. Urinary retention was significant at over 2 L. Continue Barnes catheter for 2 weeks to allow bladder time to contract. Patient has continued to have good diuresis. Echocardiogram not concerning with mildly increased QRS at 110ms consistent with moderate intraventricular conduction delay Echo not concerning with 50 to 55% ejection fraction Continue a atenolol 50 daily Continue isosorbide mononitrate 30 mg daily Continue matolazone 5mg p.o. daily Qualifiers: Heart failure type: unspecified Qualified Code(s): I50.9 - Heart failure, unspecified (4) Leukocytosis: Patient has continued leukocytosis, this could be secondary to his cellulitis Cannot completely rule out bone marrow issue/CML secondary to white blood cell count being elevated in the past and slightly high monocytes Recommend outpatient follow-up with hematology. CBC, BMP Check uric acid 08/20/23 noted to be slightly elevated at 10.7. (5) Anemia: Check stool Hemoccult Iron deficiency anemia noted Follow-up outpatient (6) Acute kidney injury: Patient with acute kidney injury, superimposed on chronic kidney disease This may be secondary to hepatorenal syndrome. There is also definitely affected by urinary retention. Barnes was placed, 2300 residual urine. He will discharge with Barnes. He is already on doxazosin. Avoid renal toxic medication Significant diuresis for urinary retention. Hold further Bumex. Recheck BUN and creatinine tomorrow. Still diuresing. (7) COPD (chronic obstructive pulmonary disease): Patient with underlying COPD No evidence of exacerbation currently DuoNeb every 6 hours, budesonide twice daily Qualifiers: COPD type: emphysema Emphysema type: centrilobular Qualified Code(s): J43.2 - Centrilobular emphysema (8) Diabetes: Hold diabetic medication Sliding scale insulin Consistent carb, cardiac diet Plan Multiple other problems as outlined in past medical history Full code Heparin will be used for DVT prophylaxis. Attestations Medical Necessity Statement*: Patient will be discharged likely tomorrow pending approval of admittance to shelter facility. Coding Level of Care Code Acute Code for [facility] Diagnoses Knee pain, left M25.562 Cellulitis of leg, right L03.115 CHF exacerbation I50.9 Heart failure type: unspecified Leukocytosis D72.829 Anemia D64.9 Acute kidney injury N17.9 Centrilobular emphysema J43.2 COPD type: emphysema Emphysema type: centrilobular Diabetes E11.9 Documented by User: Randall Medina MD 08/24/23 09:52 Physical Exam Urinary Catheter Management: Barnes: Cath Placed During This Visit: yes Data 08/23/23 05:14 08/24/23 05:31 A&P Assessment and plan (1) Knee pain, left: (2) Cellulitis of leg, right: (3) CHF exacerbation: Qualifiers: Heart failure type: unspecified Qualified Code(s): I50.9 - Heart failure, unspecified (4) Leukocytosis: (5) Anemia: (6) Acute kidney injury: (7) COPD (chronic obstructive pulmonary disease): Qualifiers: COPD type: emphysema Emphysema type: centrilobular Qualified Code(s): J43.2 - Centrilobular emphysema (8) Diabetes: Coding Level of Care Code Acute Code for [facility] Diagnoses Knee pain, left M25.562 Cellulitis of leg, right L03.115 CHF exacerbation I50.9 Heart failure type: unspecified Leukocytosis D72.829 Anemia D64.9 Acute kidney injury N17.9 Centrilobular emphysema J43.2 COPD type: emphysema Emphysema type: centrilobular Diabetes E11.9
[2023-08-24] MEDS: aspirin 81 mg Chew Tablet PO (08:43)
[2023-08-24] MEDS: atenolol 50 mg Tablet PO (08:43)
[2023-08-24] MEDS: predniSONE 20 mg Tablet 40 MG PO (08:43)
[2023-08-24] MEDS: isosorbide mononitrate ER 30 mg Tablet PO (08:43)
[2023-08-24] MEDS: doxycycline 100 mg Tablet PO (08:43)
[2023-08-24] MEDS: finasteride 5 mg Tablet PO (08:43)
[2023-08-24] MEDS: pantoprazole DR 40 mg Tablet PO (08:43)
[2023-08-24] MEDS: docusate sodium 100 mg Capsule PO (08:43)
[2023-08-24] MEDS: doxazosin 4 mg Tablet PO (08:44)
[2023-08-24] MEDS: allopurinol 100 mg Tablet PO (08:44)
[2023-08-24] MEDS: ipratropium-albuterol 3 mL Neb INHALATION (08:54)
[2023-08-24] MEDS: budesonide 0.5 mg/2 mL Neb INHALATION (08:54)
[2023-08-24 08:55] VITALS: PULSE 65; RESP 18; O2SAT 98
[2023-08-24 09:01] VITALS: PULSE 67
[2023-08-24 11:33] LABS: Glucose Point of Care 210 mg/dL (70-110)
[2023-08-24 11:36] VITALS: BP 117/70; PULSE 63; RESP 15; TEMP 36.6; O2SAT 98
--- NOTE | 2023-08-24 12:26 | P.DS_ITS ---
Discharge Providers Date of Admission: 08/20/23 11:11 Date of Discharge: August 24, 2023 Attending Provider at Admission: Randall Medina MD Attending Provider at Discharge: Randall Medina MD Primary Care Provider: YOGESH Tinoco Diagnoses at Discharge Discharge Diagnosis (1) Knee pain, left: Status: Acute (2) Cellulitis of leg, right: Status: Acute (3) CHF exacerbation: Status: Acute Qualifiers: Heart failure type: unspecified Qualified Code(s): I50.9 - Heart failure, unspecified (4) Leukocytosis: Status: Acute (5) Anemia: Status: Acute (6) Acute kidney injury: Status: Resolved (7) COPD (chronic obstructive pulmonary disease): Status: Acute Qualifiers: COPD type: emphysema Emphysema type: centrilobular Qualified Code(s): J43.2 - Centrilobular emphysema (8) Diabetes: Status: Acute Reason for Visit Reason for Visit: left knee pain Hospital Course Hospital Course Santosh is a 73-year-old white male who presented to the hospital with increased swelling, cellulitis of his right leg, swollen left knee, and acute CHF exacerbation and acute kidney injury. IV antibiotics initially of vancomycin. Bladder scan demonstrated significant urinary retention and Barnes 1 placed demonstrated 2300 cc of urine. Barnes was left in place. Uric acid was performed which was slightly elevated despite the patient being on allopurinol for gout. Orthopedics was consulted that did not believe the left knee was infected. They attempted arthrocentesis but this was not successful. During the patient's hospital stay, he diuresed well initially with IV diuresis but then even without with Barnes catheter placement. Left knee still continue to give him significant difficulties with pain but did improve during his hospital stay with prednisone. Cellulitis of his right lower extremity improved significantly, and he was transition to p.o. antibiotics. Renal function imp roved as well, and creatinine was 1.5 at discharge. He had continued to diurese the last several days despite being taken off diuretics. On August 24 it was thought he could transfer to custodial for rehabilitation secondary to weakness and continued left leg pain. He will finish up a short course of doxycycline. Kidney function should be checked in 3 to 5 days, and consideration of whether diuretics need to be resumed. He will need urology follow-up in 2 weeks and catheter should be left in at discharge. His white count has been persistently elevated for some time, and he should be evaluated by hematology for possible early CML. This will be arranged as well, and he should see his primary care provider in 3 to 5 days at the custodial facility. Patient was given opportunity ask questions and agreed with the plan. Physical Exam Narrative: General exam no distress Neck is supple Cardiovascular regular rate and rhythm without murmur Lungs clear Abdomen is soft Extremities right lower extremity with resolving cellulitis, left knee with slight effusion. No significant edema bilaterally. Urinary Catheter Management: Barnes: Cath Placed During This Visit: yes Reason for Continuing Indwelling Catheter: Other Urinary Catheter Date of Insertion: 08/20/23 Urinary Catheter Time of Insertion: 16:00 Discharge Data Studies Completed and Pending Completed Studies During Hospitalization Category Date Time Status XR chest 1V portable [id number] Stat Exams 08/20/23 11:31 Completed XR knee LT 3V* [id number] Stat Exams 08/20/23 08:25 Completed CV. echo wo/w contrast [id number] Routine Ultrasound 08/20/23 14:28 Completed US venous duplex lower extremity bilat [CV venous Ultrasound 08/20/23 08:25 [place] [id number]] Stat Pending at discharge Category Date Time Status Fecal Occult Blood [Immunochemical Fecal OCB] Routine Lab 08/20/23 11:42 Uncollected Radiology Impressions Knee X-Ray 08/20/23 08:25 IMPRESSION: 1. Advanced left knee osteoarthritis. 2. Moderate-sized effusion. Chest X-Ray 08/20/23 11:31 IMPRESSION: Thin linear opacity in the right base could represent scarring or atelectasis. No consolidation. Otherwise unremarkable chest x-ray. Laboratory Results WBC 15.81 10^3/uL (3.29-11.43) H 08/23/23 05:14 RBC 3.57 10^6/uL (3.85-5.65) L 08/23/23 05:14 Hgb 10.30 g/dL (11.27-16.99) L 08/23/23 05:14 Hct 31.6 % (37-53) L 08/23/23 05:14 MCV 88.5 fl (82-101) 08/23/23 05:14 MCH 28.9 pg (27-33) 08/23/23 05:14 MCHC 32.6 g/dL (30-55) 08/23/23 05:14 RDW 15.0 % (12.1-15.1) 08/23/23 05:14 Plt Count 317 10^3/cmm (157-399) 08/23/23 05:14 MPV 9.1 fL (7.4-10.4) 08/23/23 05:14 Neut % (Auto) 82.1 % 08/23/23 05:14 Lymph % (Auto) 8.2 % 08/23/23 05:14 [place] % (Auto) 7.4 % 08/23/23 05:14 Eos % (Auto) 1.4 % 08/23/23 05:14 Baso % (Auto) 0.2 % 08/23/23 05:14 Neut # (Auto) 12.98 10^3/uL (1.8-7.7) H 08/23/23 05:14 Lymph # (Auto) 1.3 10^3/uL (0.8-4.8) 08/23/23 05:14 [place] # (Auto) 1.2 10^3/uL (0.2-0.9) H 08/23/23 05:14 Eos # (Auto) 0.2 10^3/uL (0.0-0.8) 08/23/23 05:14 Baso # (Auto) 0.0 10^3/uL (0.0-0.1) 08/23/23 05:14 Nucleated RBC % (auto) 0 % 08/23/23 05:14 Nucleated RBCs # 0.0 /100WBC 08/23/23 05:14 PT 15.20 SECONDS (12.1-14.9) H 08/20/23 08:50 INR 1.16 (0.8-1.2) 08/20/23 08:50 APTT 33.3 SECONDS (23.9-36.7) 08/20/23 08:50 Sodium 132 mmol/L (136-145) L 08/24/23 05:31 Potassium 3.8 mmol/L (3.5-5.1) 08/24/23 05:31 Chloride 94 mmol/L (98-107) L 08/24/23 05:31 Carbon Dioxide 25 mmol/L (22-29) 08/24/23 05:31 Anion Gap 16.8 (5-19) 08/24/23 05:31 BUN 78 mg/dL (8-23) H 08/24/23 05:31 Creatinine 1.5 mg/dL (0.7-1.2) H 08/24/23 05:31 GFR Calculation Not Reportable 08/24/23 05:31 Glucose 120 mg/dL (65-115) H 08/24/23 05:31 POC Glucose 210 mg/dL (70-110) H 08/24/23 11:19 Calculated Osmolality 299 mOsm/kg (285-295) H 08/24/23 05:31 Lactic Acid 1.9 mmol/L (0.5-2.2) 08/20/23 08:50 Uric Acid 10.7 mg/dL (3.4-7.0) H 08/20/23 08:50 Calcium 9.6 mg/dL (8.5-10.5) 08/24/23 05:31 Magnesium 2.1 mg/dL (1.7-2.3) 08/24/23 05:31 Iron 24 ug/dL (59-158) L 08/20/23 08:50 TIBC 319 mcg/dl 08/20/23 08:50 % Saturation 7.5 % (20-50) L 08/20/23 08:50 Unsat Iron Binding 295 ug/dL (112-347) 08/20/23 08:50 Ferritin 53 ng/mL (30-400) 08/20/23 08:50 Total Bilirubin 0.6 mg/dL (0.15-1.2) 08/21/23 05:26 AST 82 U/L (0-40) H 08/21/23 05:26 ALT 22 U/L (0-41) 08/21/23 05:26 Alkaline Phosphatase 113 U/L (40-130) 08/21/23 05:26 Creatine Kinase 55 U/L (39-308) 08/20/23 08:50 NT-Pro-B Natriuret Pep 1333 pg/mL (0-125) H 08/20/23 08:50 Total Protein 7.6 g/dL (6.6-8.7) 08/21/23 05:26 Albumin 3.6 g/dL (3.5-5.2) 08/21/23 05:26 Globulin 4.0 g/dL (1.3-4.6) 08/21/23 05:26 Vitamin B12 1125 pg/mL (232-1245) 08/20/23 08:50 Folate > 20.0 ng/mL (4.5-32.2) 08/20/23 08:50 Procalcitonin 0.19 ng/mL (0-0.5) 08/20/23 08:50 Urine Color Yellow (Yellow) 08/20/23 18:00 Urine Appearance Clear (CLEAR) 08/20/23 18:00 Urine pH 6 (5-7) 08/20/23 18:00 Ur Specific [place] 1.005 (1.005-1.030) 08/20/23 18:00 Urine Protein Neg (Negative) 08/20/23 18:00 Urine Glucose (UA) Norm (Normal) 08/20/23 18:00 Urine Ketones 1+ (Negative) H 08/20/23 18:00 Urine Blood Neg (Negative) 08/20/23 18:00 Urine Nitrate Negative (Negative) 08/20/23 18:00 Urine Bilirubin Neg (Negative) 08/20/23 18:00 Urine Urobilinogen Norm mg/dL (Negative) 08/20/23 18:00 Ur Leukocyte Esterase Negative (Negative) 08/20/23 18:00 Urine RBC None /hpf (0-2) 08/20/23 18:00 Urine WBC None /hpf (0-5) 08/20/23 18:00 Ur Squamous Epith Cells None /hpf (0-5) 08/20/23 18:00 Amorphous Sediment Not Reportable 08/20/23 18:00 Urine Bacteria Trace /hpf (NONE) 08/20/23 18:00 Vitals Last Vital Signs Temp 97.8 F 08/24/23 11:36 Pulse 63 08/24/23 11:36 Resp 15 08/24/23 11:36 BP 117/70 08/24/23 11:36 Pulse Ox 98 08/24/23 11:36 O2 Del Method Nasal Cannula 08/24/23 11:36 O2 Flow Rate 4 08/24/23 08:55 Discharge Plan Discharge Patient Disposition: Xfer SNF Condition: Stable Prescriptions: New oxycodone 5 mg Tablet 5 mg PO Q6H PRN (Reason: Severe Pain) Qty: 20 0RF prednisone 20 mg Tablet 40 mg PO DAILY Qty: 6 0RF doxycycline monohydrate 100 mg Tablet 100 mg PO BID Qty: 10 0RF docusate sodium 100 mg Capsule 100 mg PO BID Qty: 60 0RF polyethylene glycol 3350 17 gram Powder In Packet 17 g PO DAILY Qty: 30 0RF Continued atenolol 25 mg tablet 50 mg PO DAILY multivitamin Tablet 1 tab PO DAILY isosorbide mononitrate 30 mg tablet extended release 24 hr 30 mg PO DAILY Qty: 90 3RF nitroglycerin 0.4 mg tablet, sublingual 0.4 mg sublingual Q5M PRN (Reason: chest pain) 30 Days Qty: 30 3RF Rx Instructions: until response; do not exceed 3 doses per episode metformin 500 mg tablet 1,000 mg PO BID Breztri Aerosphere 160-9-4.8 mcg/actuation HFA aerosol inhaler 2 inh inhalation BID Qty: 10.7 5RF albuterol sulfate 90 mcg/actuation HFA aerosol inhaler 2 inh INHALATION Q4-5H PRN (Reason: Shortness Of Breath Or Wheezing) ipratropium-albuterol 0.5 mg-3 mg(2.5 mg base)/3 mL solution for nebulization 3 ml INHALATION QID PRN (Reason: Shortness Of Breath Or Wheezing) allopurinol 100 mg Tablet 100 mg PO DAILY famotidine 20 mg tablet 20 mg PO DAILY aspirin 81 mg Tablet,Chewable 81 mg PO DAILY doxazosin 2 mg tablet 4 mg PO DAILY pantoprazole 40 mg tablet,delayed release (DR/EC) 40 mg PO DAILY atorvastatin 10 mg tablet 10 mg PO QPM finasteride 5 mg tablet 5 mg PO DAILY Discontinued potassium chloride 10 mEq tablet,ER particles/crystals 10 meq PO DAILY metolazone 5 mg Tablet 10 mg PO DAILY Qty: 30 0RF spironolactone 25 mg Tablet 50 mg PO DAILY Qty: 30 0RF Discharge Orders: Discharge Order (Routine); Ordered 08/24/23 Ordered By: Randall Medina Referrals: Herson Valenzuela MD [Hospitalist] - 2 weeks (Persistently elevated white blood cell count) Jerod,YOGESH Melgoza [Primary Care Provider] - 4-7 days Discharge Diet: Cardiac and Diabetic Discharge Activity: Increase activity as tolerated Activity Restrictions/Additional Instructions: Take all medicine as prescribed Keep Barnes in at discharge Arrange for urology appointment in 2 weeks for severe urinary retention of 2300 cc BMP in 3 to 5 days, and review of diuretics would need to be restarted. Discharge Attestations Time Spent in Discharge Care*: greater than 30 min Quality Metrics Clinical Quality Measures [ No reported AMI, CVA or VTE this stay] Coding Level of Care Code 28039 Total time (in minutes) for Discharge: 36 Diagnoses Knee pain, left M25.562 Cellulitis of leg, right L03.115 CHF exacerbation I50.9 Heart failure type: unspecified Leukocytosis D72.829 Anemia D64.9 Acute kidney injury N17.9 Centrilobular emphysema J43.2 COPD type: emphysema Emphysema type: centrilobular Diabetes E11.9
[2023-08-24] MEDS: nystatin cream 30 gm 1 APPLIC TOPICAL (13:03)
[2023-08-24] MEDS: insulin lispro 100 unit/1 mL SUBCUT (13:03)
--- NOTE | 2023-08-24 15:19 | PC.NURSE ---
Report to [facility] at [facility].
[2023-08-24 16:32] VITALS: BP 117/70; PULSE 63; RESP 15; TEMP 36.6; O2SAT 98
== END 2023-08-24 16:30 | disposition skilled nursing facility (03) | DRG 564 ==
LOC: ER 11:11 → MEDSURG 11:48
PROVIDERS: Admitting Provider Internal Medicine; Emergency Provider Internal Medicine; PCP Nurse Practitioner Family; Visit Provider Internal Medicine
DX: M25.462 Effusion, left knee (principal); K76.7 Hepatorenal syndrome; L03.115 Cellulitis of right lower limb; N17.9 Acute kidney failure, unspecified; I13.0 Hypertensive heart and chronic kidney disease with heart failure and stage 1 through stage 4 chronic kidney disease, or unspecified chronic kidney disease; M17.12 Unilateral primary osteoarthritis, left knee; D50.9 Iron deficiency anemia, unspecified; R33.9 Retention of urine, unspecified; M10.9 Gout, unspecified; K21.9 Gastro-esophageal reflux disease without esophagitis; G89.29 Other chronic pain; M54.9 Dorsalgia, unspecified; G47.33 Obstructive sleep apnea (adult) (pediatric); Z99.81 Dependence on supplemental oxygen; N40.0 Benign prostatic hyperplasia without lower urinary tract symptoms; E66.01 Morbid (severe) obesity due to excess calories; Z68.39 Body mass index [BMI] 39.0-39.9, adult; J43.2 Centrilobular emphysema; E11.22 Type 2 diabetes mellitus with diabetic chronic kidney disease; N18.9 Chronic kidney disease, unspecified; Z87.891 Personal history of nicotine dependence; I50.9 Heart failure, unspecified
CPT/HCPCS: 36415; 36416; 51702; 51798; 71045; 73562; 80048; 80053; 81001; 82550; 82607; 82728; 82746; 82962; 83540; 83550; 83605; 83735; 83880; 84145; 84550; 85025; 85610; 85730; 93005; 93970; 94640; 96372; 97110; 97163; 97530; 99285; C8929; J1644; J1815; J3370; J3475; J3490; J7512; J7626; Q9956

== ENCOUNTER → 2024-01-02 12:07 | Outpatient (BNVA) | payer MEDICARE, SELFPAY | PROVIDERS: PCP Nurse Practitioner Family; Visit Provider Internal Medicine Pulmonary Disease | DX: J96.11 Chronic respiratory failure with hypoxia (principal); J96.12 Chronic respiratory failure with hypercapnia; I25.5 Ischemic cardiomyopathy; I42.0 Dilated cardiomyopathy; G47.33 Obstructive sleep apnea (adult) (pediatric); J43.2 Centrilobular emphysema; I27.81 Cor pulmonale (chronic); R42 Dizziness and giddiness | CPT/HCPCS: 99214 ==

== ENCOUNTER → 2024-02-11 12:37 | Outpatient (BNVA) | payer MEDICARE, SELFPAY | PROVIDERS: PCP Nurse Practitioner Family; Visit Provider Internal Medicine Cardiovascular Disease | DX: I27.81 Cor pulmonale (chronic) (principal); I11.0 Hypertensive heart disease with heart failure; I50.9 Heart failure, unspecified; E11.9 Type 2 diabetes mellitus without complications; Z79.84 Long term (current) use of oral hypoglycemic drugs; E66.01 Morbid (severe) obesity due to excess calories; Z68.41 Body mass index [BMI] 40.0-44.9, adult; R94.39 Abnormal result of other cardiovascular function study; Z87.891 Personal history of nicotine dependence | CPT/HCPCS: 99213 ==

== ENCOUNTER → 2024-03-18 09:00 | Outpatient (BNVA) | payer MEDICARE, SELFPAY | PROVIDERS: PCP Nurse Practitioner Family; Visit Provider Podiatrist Foot & Ankle Surgery | DX: L60.3 Nail dystrophy (principal); I73.9 Peripheral vascular disease, unspecified; R60.9 Edema, unspecified; E11.69 Type 2 diabetes mellitus with other specified complication; Z79.84 Long term (current) use of oral hypoglycemic drugs | CPT/HCPCS: 11721; 99203 ==

== ENCOUNTER → 2024-05-20 09:52 | Outpatient (BNVA) | payer MEDICARE, SELFPAY | PROVIDERS: PCP Nurse Practitioner Family; Visit Provider Podiatrist Foot & Ankle Surgery | DX: L60.3 Nail dystrophy (principal); I73.9 Peripheral vascular disease, unspecified; R60.9 Edema, unspecified; E11.69 Type 2 diabetes mellitus with other specified complication; Z79.84 Long term (current) use of oral hypoglycemic drugs | CPT/HCPCS: 11721 ==

== ENCOUNTER → 2024-07-21 12:52 | Outpatient (BNVA) | payer MEDICARE, SELFPAY | PROVIDERS: PCP Nurse Practitioner Family; Visit Provider Nurse Practitioner Family | DX: I13.0 Hypertensive heart and chronic kidney disease with heart failure and stage 1 through stage 4 chronic kidney disease, or unspecified chronic kidney disease (principal); N18.9 Chronic kidney disease, unspecified; I50.22 Chronic systolic (congestive) heart failure; Z87.891 Personal history of nicotine dependence; E11.22 Type 2 diabetes mellitus with diabetic chronic kidney disease; Z79.84 Long term (current) use of oral hypoglycemic drugs | CPT/HCPCS: 99214 ==

== ENCOUNTER 2024-08-15 11:55 | Oncology outpatient (recurring) (ONCR) | payer MEDICARE, SELFPAY ==
--- NOTE | 2024-07-28 15:10 | N.ONRAD NP_ITS ---
Radiation Oncology New Patient Visit Patient: Santosh Brownlee MR#: [id number] : 1950> Age: 74> Sex: Male> Dictated by: Dr. Deyanira Gilbert Date of Service: 07/28/2024 Referring Physician(s) : Jaqueline urology Diagnosis: C61 - malignant neoplasm of prostate, Diagnosed 07/28/2024 (active). Radiotherapy to date: Summary > No prior radiation therapy. Chief Complaint / History of Present Illness: Patient is a 74-year-old gentleman with severe comorbidities who is being treated for BPH with laser therapy. He had biopsies done at that time. He was found to have Riddhi score 8 and 9 from both the left and right side of the prostate with all biopsies positive. He had a PSMA PET done which did not show any evidence of metastatic disease. He did have complications postprocedure with urinary retention and had to have a Barnes placed for a while. This is now out and he has good urinary function. He is not gets up 2 times at night to pee. His stream is good. His output is good. He has no complaints of that today. His IPSS score was 13. He is here today in consultation to discuss radiation for prostate cancer in a patient with significant and severe comorbidities. His urologist did not mention the use of ADT.. Current Medications: albuterol sulfate 90 mcg/actuation 2 inhalations inhalation Q4-5H PRN allopurinol 100 mg PO DAILY aspirin 81 mg PO DAILY atenolol 50 mg PO DAILY atorvastatin 10 mg PO QPM [id number] 160-9-4.8 mcg/actuation (Breztri Aerosphere) 2 inhalations inhalation BID colchicine 0.6 mg PO DAILY docusate sodium 100 mg PO BID doxazosin 4 mg PO DAILY famotidine 20 mg PO DAILY finasteride 5 mg PO DAILY ipratropium-albuterol 0.5 mg-3 mg(2.5 mg base)/3 mL 3 mL inhalation QID PRN isosorbide mononitrate ER 30 mg PO DAILY metformin 1,000 mg PO BID multivitamin 1 tab PO DAILY nitroglycerin 0.4 mg sublingual Q5M PRN 30 days oxycodone 5 mg PO Q6H PRN oxycodone 5 mg PO Q6H PRN pantoprazole 40 mg PO DAILY polyethylene glycol 3350 17 grams PO DAILY prednisone 40 mg (2 x 20 mg) PO DAILY spironolactone (Aldactone) 25 mg PO DAILY Allergies: hydrocodone Allergy (Verified 07/21/24 13:08) Rash Sulfa (Sulfonamide Antibiotics) Allergy (Verified Medical History: Gout GERD (gastroesophageal reflux disease) Prostate cancer Chronic back pain Edema Diabetes DJD (degenerative joint disease) Tobacco use Heart failure, unspecified Possibly ischemic with positive nuclear stress test in 2021, for which the patient elected no further evaluation ALEX (obstructive sleep apnea) Cor pulmonale Uses home O2 3L/min at home BPH (benign prostatic hyperplasia) Morbid obesity Bilateral edema of lower extremit Hypertension diabetes DJD Prior tobacco use Surgical History: Hx of hand surgery History of cataract surgery S/P hernia repair (10/20/20) open ventral with mesh S/P thoracotomy History of cholecystectomy Family History: Mother CAD (coronary artery disease) Diabetes Father CAD (coronary artery disease) Sister Diabetes Denies family history of Clotting disorder Dementia Chronic kidney disease (CKD) Suicide Anesthesia complication Bleeding disorder Lung disease Cancer Stroke Social History: Smoking and tobacco/nicotine status: former use of tobacco/nicotine Quit status (tobacco/nicotine): has quit using Year quit tobacco: November 2020 [id number] Second hand smoke exposure: No Alcohol intake: never Substance/Drug Use: never Lives independently: Yes Household members: spouse Marital status: service: No Current occupational status: retired Pets and animals: Yes Do you think of yourself as: Straight/Heterosexual Current gender identity: Male Current Complaints / Review of Systems: . Vital Signs: Performed on 07/28/2024 2:32 PM BMI - 38.225 kg/m2 (high), Height - 70 in, Weight - 266.4 lbs, Temperature - 97.1 f, Pulse - 84 /min, Respiration - 18 /min, O2 Sat - 96 %, Pain - 0, Fatigue - 0 and BP - 124/ 79 mm(hg). Physical Exam: General Patient is in no apparent distress today. He sitting comfortably in his wheelchair. He is accompanied by his daughter. HEENT: Normocephalic atraumatic. Pupils are equal, sclera clear, extraocular muscles intact Pulmonary: Respiratory rate is regular and nonlabored Cardiovascular: Regular rate and rhythm Abdomen: Abdomen is morbidly protuberant and android pattern Extremities: His lower extremities show significant edema Neurological: Alert and orient x 3. Speech intact. Patient is in a wheelchair Psych: Affect is appropriate for current situation Performance Status: 70 Pathology: Primary, c61 - malignant neoplasm of prostate, Diagnosed 07/28/2024 (active) . Impression: Adenocarcinoma the prostate [place] score 8, 9 PSA currently pending, PSMA PET negative for metastatic disease Plan: I reviewed with Mr. Lima and his daughter his biopsy results. We talked about the procedure he had the complications that he had afterwards. At this point he seems to recovered from all of this. We reviewed the different options for treatment from observation to ADT to external beam radiation. With all of his comorbidities the ADT may actually be more toxic for him. We discussed the radiation to the prostate itself. We discussed the simulation process. We reviewed the daily treatment regiment. At this point he is agreed to proceed. He will have his PSA drawn today so we will have 1 right before he starts treatment. Will then have him return shortly thereafter to undergo simulation. Plan for a 5 and half week course of treatment to the prostate. Signed by: 07/28/2024 3:08:03 PM <<Signature on File>> Time spent with patient: 35 CPT Code: CPT Code:
[2024-07-28 15:57] LABS: Prostate Specific Antigen 0.581 ng/mL (0-4)
--- NOTE | 2024-08-05 15:54 | ONCRAD TMN_ITS ---
Radiation Oncology Weekly Treatment Management Patient: Santosh Brownlee MR#: [id number] : 1950 Attending Physician: Dr. Deyanira Gilbert Date of Service: 08/05/2024 Fractions: 2 out of 28 Referring Physician(s) : Diagnosis: C61 - Malignant neoplasm of prostate, Diagnosed 07/28/2024 (Active) Radiotherapy to date: Course: Prostate/Pelvis, Treatment Site: [id number], Ref. ID: [id number], Energy: 15X, Dose/Fx (cGy): 250, #Fx: , Dose Correction (cGy): 0, Total Dose Delivered (cGy): 500, Start Date: 08/04/2024, Elapsed Days: 1 Reason for visit: The patient is being seen today as part of their regularly scheduled weekly on treatment visits to assess for acute toxicities from radiotherapy. Review of Systems: Patient had no questions or concerns today Vital Signs: Performed on 08/05/2024 3:49 PM BMI - 38.368 kg/m2 (high), Height - 70 in, Weight - 267.4 lbs, Temperature - 97.0 f, Pulse - 89 /min, Respiration - 18 /min, O2 Sat - 96 %, Pain - 0, Fatigue - 0 and BP - 123/ 72 mm(hg). Physical Exam: No changes on exam Imaging: Radiation therapy imaging related to accurate target localization (i.e. KV, MV and CBCT) was reviewed. Appropriate changes, if any, were made to ensure treatment accuracy. Plan: Will continue with his treatments as planned Signed by: Dr. Deyanira Gilbert 08/05/2024 3:53:01 PM
--- NOTE | 2024-08-12 15:59 | ONCRAD TMN_ITS ---
Radiation Oncology Weekly Treatment Management Patient: Kem Frost> MR#: [id number] : 1950> Attending Physician: Dr. Deyanira Gilbert Date of Service: 08/12/2024 Fractions: Referring Physician(s) : Diagnosis: C61 - Malignant neoplasm of prostate, Diagnosed 07/28/2024 (Active) Radiotherapy to date: Course: Prostate/Pelvis, Treatment Site: [id number], Ref. ID: [id number], Energy: 15X, Dose/Fx (cGy): 250, #Fx: , Dose Correction (cGy): 0, Total Dose Delivered (cGy): 1,750, Start Date: 08/04/2024, Elapsed Days: 8 Reason for visit: The patient is being seen today as part of their regularly scheduled weekly on treatment visits to assess for acute toxicities from radiotherapy. Review of Systems: Patient denies any problems with bowel or bladder habits Vital Signs: Performed on 08/12/2024 3:30 PM BMI - 37.708 kg/m2 (high), Height - 70 in, Weight - 262.8 lbs, Temperature - 96.8 f, Pulse - 96 /min, Respiration - 18 /min, O2 Sat - 92 % (low), Pain - 0, Fatigue - 0 and BP - 123/ 90 mm(hg). Physical Exam: No changes on exam Imaging: Radiation therapy imaging related to accurate target localization (i.e. KV, MV and CBCT) was reviewed. Appropriate changes, if any, were made to ensure treatment accuracy. Plan: Will continue with his treatments as planned Signed by: Dr. Deyanira Gilbert 08/12/2024 3:58:24 PM
== END 2024-08-15 23:59 | disposition home or self-care (01) ==
PROVIDERS: PCP Nurse Practitioner Family; Visit Provider Radiology Radiation Oncology
DX: Z51.0 Encounter for antineoplastic radiation therapy (principal); C61 Malignant neoplasm of prostate
CPT/HCPCS: 11721; 36415; 77300; 77301; 77334; 77336; 77338; 77385; 84153; 99024; 99205

== ENCOUNTER 2024-08-22 11:25 | Oncology outpatient (recurring) (ONCR) | payer MEDICARE, SELFPAY ==
--- NOTE | 2024-08-20 09:23 | ONCRAD TMN_ITS ---
Radiation Oncology Weekly Treatment Management Patient: Santosh Brownlee MR#: [id number] : 1950 Attending Physician: Dr. Deyanira Gilbert Date of Service: 08/19/2024 Fractions: 12 out of 28 Referring Physician(s) : Diagnosis: C61 - Malignant neoplasm of prostate, Diagnosed 07/28/2024 (Active) Radiotherapy to date: Course: Prostate/Pelvis, Treatment Site: [id number], Ref. ID: [id number], Energy: 15X, Dose/Fx (cGy): 250, #Fx: , Dose Correction (cGy): 0, Total Dose Delivered (cGy): 3,000, Start Date: 08/04/2024, Elapsed Days: 15 Reason for visit: The patient is being seen today as part of their regularly scheduled weekly on treatment visits to assess for acute toxicities from radiotherapy. Review of Systems: Patient has had no changes in bowel or bladder habits vital Signs: Performed on 08/19/2024 3:24 PM BMI - 37.593 kg/m2 (high), Height - 70 in, Weight - 262 lbs, Temperature - 97.2 f, Pulse - 85 /min, Respiration - 18 /min, O2 Sat - 94 % (low), Pain - 0, Fatigue - 0 and BP - 116/ 64 mm(hg)(/low). Physical Exam: No changes on exam Imaging: Radiation therapy imaging related to accurate target localization (i.e. KV, MV and CBCT) was reviewed. Appropriate changes, if any, were made to ensure treatment accuracy. Plan: Will continue with treatments as planned Signed by: Dr. Deyanira Gilbert 08/20/2024 9:21:21 AM
== END 2024-08-22 23:59 | disposition home or self-care (01) ==
PROVIDERS: PCP Nurse Practitioner Family; Visit Provider Radiology Radiation Oncology
DX: Z51.0 Encounter for antineoplastic radiation therapy (principal); C61 Malignant neoplasm of prostate; Z53.9 Procedure and treatment not carried out, unspecified reason; Z87.891 Personal history of nicotine dependence
CPT/HCPCS: 77336; 77385; 99024

== ENCOUNTER 2024-09-11 15:17 | Oncology outpatient (recurring) (ONCR) | payer MEDICARE, SELFPAY ==
--- NOTE | 2024-08-26 13:58 | ONCRAD TMN_ITS ---
Radiation Oncology Weekly Treatment Management Patient: Kem Ace MR#: [id number] : 1950> Attending Physician: Dr. Deyanira Gilbert Date of Service: 08/26/2024 Fractions: 17 out of 28 Referring Physician(s) : Diagnosis: C61 - Malignant neoplasm of prostate, Diagnosed 07/28/2024 (Active) Radiotherapy to date: Course: Prostate/Pelvis, Treatment Site: [id number], Ref. ID: [id number], Energy: 15X, Dose/Fx (cGy): 250, #Fx: 17 / , Dose Correction (cGy): 0, Total Dose Delivered (cGy): 4,250, Start Date: 08/04/2024, Elapsed Days: 22 Reason for visit: The patient is being seen today as part of their regularly scheduled weekly on treatment visits to assess for acute toxicities from radiotherapy. Review of Systems: Patient denies any complaints Vital Signs: Performed on 08/26/2024 1:27 PM BMI - 37.45 kg/m2 (high), Height - 70 in, Weight - 261 lbs, Temperature - 95.8 f, Pulse - 85 /min, Respiration - 18 /min, O2 Sat - 95 % (low), Pain - 0, Fatigue - 0 and BP - 111/ 72 mm(hg). Physical Exam: No changes on exam Imaging: Radiation therapy imaging related to accurate target localization (i.e. KV, MV and CBCT) was reviewed. Appropriate changes, if any, were made to ensure treatment accuracy. Plan: Will continue with treatments as planned Signed by: Dr. Deyanira Gilbert 08/26/2024 1:57:29 PM
--- NOTE | 2024-09-02 15:50 | ONCRAD TMN_ITS ---
Radiation Oncology Weekly Treatment Management Patient: Kem Frost> MR#: [id number] : 1950> Attending Physician: Dr. Deyanira Gilbert Date of Service: 09/02/2024 Fractions: 22 out of 28 Referring Physician(s) : Diagnosis: C61 - Malignant neoplasm of prostate, Diagnosed 07/28/2024 (Active) Radiotherapy to date: Course: Prostate/Pelvis, Treatment Site: [id number], Ref. ID: [id number], Energy: 15X, Dose/Fx (cGy): 250, #Fx: , Dose Correction (cGy): 0, Total Dose Delivered (cGy): 5,500, Start Date: 08/04/2024, Elapsed Days: 29 Reason for visit: The patient is being seen today as part of their regularly scheduled weekly on treatment visits to assess for acute toxicities from radiotherapy. Review of Systems: Patient denies any changes in bowel or bladder habits Vital Signs: Performed on 09/02/2024 3:26 PM BMI - 37.45 kg/m2 (high), Height - 70 in, Weight - 261 lbs, Temperature - 96.6 f, Pulse - 90 /min, Respiration - 18 /min, O2 Sat - 95 % (low), Pain - 0, Fatigue - 0 and BP - 110/ 65 mm(hg). Physical Exam: No changes on exam Imaging: Radiation therapy imaging related to accurate target localization (i.e. KV, MV and CBCT) was reviewed. Appropriate changes, if any, were made to ensure treatment accuracy. Plan: Will continue with his treatments as planned. He does have his urology appointment on October 01 for his first PSA Signed by: Dr. Deyanira Gilbert 09/02/2024 3:48:33 PM
--- NOTE | 2024-09-09 11:47 | ONCRAD TMN_ITS ---
Radiation Oncology Weekly Treatment Management Patient: Kem Frost> MR#: [id number] : 1950> Attending Physician: Dr. Deyanira Gilbert Date of Service: 09/09/2024 Fractions: 27 out of 28 Referring Physician(s) : Diagnosis: C61 - Malignant neoplasm of prostate, Diagnosed 07/28/2024 (Active) Radiotherapy to date: Course: Prostate/Pelvis, Treatment Site: [id number], Ref. ID: [id number], Energy: 15X, Dose/Fx (cGy): 250, #Fx: 27 / 28, Dose Correction (cGy): 0, Total Dose Delivered (cGy): 6,750, Start Date: 08/04/2024, Elapsed Days: 36 Reason for visit: The patient is being seen today as part of their regularly scheduled weekly on treatment visits to assess for acute toxicities from radiotherapy. Review of Systems: Patient continues to do well with minimal changes in bowel or bladder habits Vital Signs: Performed on 09/09/2024 11:23 AM BMI - 51.511 kg/m2 (high), Height - 70 in, Weight - 359 lbs, Temperature - 97 f, Pulse - 88 /min, Respiration - 18 /min, O2 Sat - 94 % (low), Pain - 0, Fatigue - 0 and BP - 112/ 72 mm(hg). Physical Exam: No changes on exam Imaging: Radiation therapy imaging related to accurate target localization (i.e. KV, MV and CBCT) was reviewed. Appropriate changes, if any, were made to ensure treatment accuracy. Plan: Will complete his treatments on . He will get a follow-up with a PSA scheduled subsequently Signed by: Dr. Deyanira Gilbert 09/09/2024 11:45:54 AM
== END 2024-09-19 23:59 | disposition home or self-care (01) ==
PROVIDERS: PCP Nurse Practitioner Family; Visit Provider Radiology Radiation Oncology
DX: Z53.9 Procedure and treatment not carried out, unspecified reason (principal)
CPT/HCPCS: 77336; 77385; 99024

== ENCOUNTER → 2024-10-08 13:49 | Outpatient (BNVA) | payer MEDICARE, SELFPAY | PROVIDERS: PCP Nurse Practitioner Family; Visit Provider Internal Medicine Cardiovascular Disease | DX: I50.22 Chronic systolic (congestive) heart failure (principal); I27.81 Cor pulmonale (chronic); I25.5 Ischemic cardiomyopathy; I42.0 Dilated cardiomyopathy; I10 Essential (primary) hypertension; I73.9 Peripheral vascular disease, unspecified; E11.9 Type 2 diabetes mellitus without complications | CPT/HCPCS: 99214 ==

== ENCOUNTER 2024-10-09 15:17 | Oncology outpatient (recurring) (ONCR) | payer MEDICARE, SELFPAY ==
[2024-10-09 17:16] LABS: Prostate Specific Antigen 0.152 ng/mL (0-4)
--- NOTE | 2024-10-14 09:15 | ONCRAD EPV_ITS ---
Radiation Oncology Established Patient Visit Patient: Kem Frost [id number] : 1950> Age: 74> Sex: Male> Dictated by: Dr. Deyanira Gilbert Date of Service: 10/09/2024 Referring Physician(s) : Diagnosis: C61 - Malignant neoplasm of prostate, Diagnosed 07/28/2024 (Active) Radiotherapy to Date: Course: Prostate/Pelvis, Treatment Site: [id number], Ref. ID: [id number], Energy: 15X, Dose/Fx (cGy): 250, #Fx: 28 / 28, Dose Correction (cGy): 0, Total Dose Delivered (cGy): 7,000, Start Date: 08/04/2024, End Date: 09/11/2024, Elapsed Days: 38 Current History: Patient returns today for routine follow-up. He is in good spirits. He has been a month since he completed treatments. His bowel bladder habits are returning to normal. Current Medications: Allergies: Current Complaints / Review of Systems: . Vital Signs: Performed on 10/09/2024 3:34 PM BMI - 36.445 kg/m2 (high), Height - 70 in, Weight - 254 lbs, Temperature - 96.6 f, Pulse - 96 /min, Respiration - 18 /min, O2 Sat - 93 % (low), Pain - 0, Fatigue - 0 and BP - 99/ 51 mm(hg)(/low). Physical Exam: General: Alert and oriented x 3. No acute distress. HEENT: Normocephalic atraumatic. Pupils are equal, sclera clear, extraocular muscles intact. LUNGS: Respiratory is regular nonlabored HEART: Regular rate and rhythm. ABDOMEN: Moderately protuberant android pattern Performance Status: 100 Lab: None pending. Pathology: Primary, c61 - malignant neoplasm of prostate, Diagnosed 07/28/2024 (active) . Imaging: See HPI Impression: Adenocarcinoma the prostate now a month for completion of treatment. Plan: At this point he is doing well. He will be following up with urology and the let us know when we should schedule him again after that next appointment. Signed by: 10/14/2024 9:14:27 AM <<Signature on File>> Time spent with patient: 20 CPT Code: * CPT Code: *
== END 2024-10-20 23:59 | disposition home or self-care (01) ==
PROVIDERS: PCP Nurse Practitioner Family; Visit Provider Radiology Radiation Oncology
DX: C61 Malignant neoplasm of prostate (principal)
CPT/HCPCS: 36415; 84153

== ENCOUNTER → 2024-10-14 15:17 | Outpatient (BNVA) | payer MEDICARE, SELFPAY | PROVIDERS: PCP Nurse Practitioner Family; Visit Provider Podiatrist Foot & Ankle Surgery | DX: E11.42 Type 2 diabetes mellitus with diabetic polyneuropathy (principal); L60.3 Nail dystrophy; I73.9 Peripheral vascular disease, unspecified; R60.9 Edema, unspecified; Z79.84 Long term (current) use of oral hypoglycemic drugs | CPT/HCPCS: 11721 ==

== ENCOUNTER 2024-11-11 08:56 | Outpatient (CLI) | payer MEDICARE, SELFPAY ==
--- NOTE | 2024-11-11 09:15 | USCV_ITS ---
BrownleeSantosh may Age: 74 Gender: M : 1950 Exam Date: 11/11/2024 09:18 Ordering Phys: Elvia Frost MD ([email or web address]) Technologist: Ex[place] [facility] [place]: ef BP: 120 / 80 HR: Rhythm: Sinus Technical Quality: Adequate MEASUREMENTS (Male / Female) Normal Values 2D ECHO LV Diastolic Diameter PLAX 6.4 cm 4.2 - 5.9 / 3.9 - 5.3 cm IVS Diastolic Thickness 1.6 cm 0.6 - 1.0 / 0.6 - 0.9 cm IVS Systolic Thickness 2.0 cm LVPW Diastolic Thickness 1.6 cm 0.6 - 1.0 / 0.6 - 0.9 cm LVPW Systolic Thickness 1.8 cm LVOT Diameter 2.1 cm LV Ejection Fraction 2D Teich 24.6 % LV Ejection Fraction MOD 4C 26.1 % LV Ejection Fraction MOD 2C 43.8 % LV Ejection Fraction 2C AL 43.2 % LA Diameter 4.8 cm RA Systolic Volume 4C AL 78.1 ml RA Systolic Volume 4C MOD 75.0 ml Aorta at Sinotubular Diameter 3.6 cm FINDINGS Left Ventricle Mildly dilated LV cavity with diminished ejection fraction of 43%. Diffuse hypokinesia of the left ventricle Right Ventricle Normal right ventricular size and systolic function. Right Atrium Mildly increased right atrial size. Left Atrium Mildly increased left atrial size. Mitral Valve Mild mitral annular calcification. Aortic Valve Thickened aortic valve. Tricuspid Valve No gross abnormalities noted Pulmonic Valve Pulmonic valve not well visualized. Pericardium No pericardial effusion. Aorta Normal aortic annulus size. IVC Inferior vena cava not visualized. CONCLUSIONS Mildly dilated LV cavity with diminished ejection fraction of 43%. Diffuse hypokinesia of the left ventricle. Mild biatrial enlargement Normal right ventricular size and systolic function. Thickened aortic valve. There is no pericardial effusion. Compared to the study from 08/20/2023, there is significant drop in the LV ejection fraction from 50- 55% to 43% Dr Elvia Frost MD [facility] (Electronically Signed) Final Date: 13 November 2024 23:30 S
== END 2024-11-11 08:57 | disposition home or self-care (01) ==
PROVIDERS: PCP Nurse Practitioner Family; Visit Provider Internal Medicine Cardiovascular Disease
DX: I42.9 Cardiomyopathy, unspecified (principal); R93.1 Abnormal findings on diagnostic imaging of heart and coronary circulation; I51.7 Cardiomegaly; I34.81 Nonrheumatic mitral (valve) annulus calcification; I35.8 Other nonrheumatic aortic valve disorders
CPT/HCPCS: 93308

== ENCOUNTER → 2024-11-27 09:37 | Outpatient (BNVA) | payer MEDICARE, SELFPAY | PROVIDERS: PCP Family Medicine; Visit Provider Nurse Practitioner Family | DX: I11.0 Hypertensive heart disease with heart failure (principal); I50.22 Chronic systolic (congestive) heart failure; I27.81 Cor pulmonale (chronic); I25.5 Ischemic cardiomyopathy; I73.9 Peripheral vascular disease, unspecified; E11.9 Type 2 diabetes mellitus without complications; Z79.84 Long term (current) use of oral hypoglycemic drugs; Z79.82 Long term (current) use of aspirin; Z87.891 Personal history of nicotine dependence; I42.9 Cardiomyopathy, unspecified | CPT/HCPCS: 36415; 80048; 83880; 85025; 93005; 99213 ==

== ENCOUNTER → 2024-12-01 09:20 | Outpatient (BNVA) | payer MEDICARE, SELFPAY | PROVIDERS: PCP Family Medicine; Visit Provider Internal Medicine Cardiovascular Disease | DX: I10 Essential (primary) hypertension (principal) | CPT/HCPCS: 80053 ==

== ENCOUNTER → 2024-12-05 09:43 | Outpatient (BNVA) | payer MEDICARE, SELFPAY | PROVIDERS: PCP Family Medicine; Visit Provider Nurse Practitioner Family | DX: I11.0 Hypertensive heart disease with heart failure (principal); I50.22 Chronic systolic (congestive) heart failure; I27.81 Cor pulmonale (chronic); I25.5 Ischemic cardiomyopathy; I73.9 Peripheral vascular disease, unspecified; E11.9 Type 2 diabetes mellitus without complications; Z79.84 Long term (current) use of oral hypoglycemic drugs; Z79.82 Long term (current) use of aspirin; Z87.891 Personal history of nicotine dependence | CPT/HCPCS: 99213 ==

== ENCOUNTER → 2024-12-16 15:08 | Outpatient (BNVA) | payer MEDICARE, SELFPAY | PROVIDERS: PCP Family Medicine; Visit Provider Podiatrist Foot & Ankle Surgery | DX: E11.69 Type 2 diabetes mellitus with other specified complication (principal); L60.3 Nail dystrophy; L03.115 Cellulitis of right lower limb; I73.9 Peripheral vascular disease, unspecified; R60.9 Edema, unspecified; L03.90 Cellulitis, unspecified; I87.2 Venous insufficiency (chronic) (peripheral); Z79.84 Long term (current) use of oral hypoglycemic drugs | CPT/HCPCS: 11721; 29580; 99214 ==

== ENCOUNTER → 2024-12-25 16:15 | Outpatient (BNVA) | payer MEDICARE, SELFPAY | PROVIDERS: PCP Family Medicine; Visit Provider Podiatrist Foot & Ankle Surgery | DX: E11.69 Type 2 diabetes mellitus with other specified complication (principal); L60.3 Nail dystrophy; I73.9 Peripheral vascular disease, unspecified; R60.9 Edema, unspecified; I87.2 Venous insufficiency (chronic) (peripheral); Z79.84 Long term (current) use of oral hypoglycemic drugs; L03.115 Cellulitis of right lower limb | CPT/HCPCS: 99213 ==

== ENCOUNTER → 2025-01-27 10:58 | Outpatient (BNVA) | payer MEDICARE, SELFPAY | PROVIDERS: PCP Family Medicine; Visit Provider Internal Medicine Cardiovascular Disease | DX: I11.0 Hypertensive heart disease with heart failure (principal); I50.22 Chronic systolic (congestive) heart failure; I27.81 Cor pulmonale (chronic); I25.5 Ischemic cardiomyopathy; I73.9 Peripheral vascular disease, unspecified; E11.9 Type 2 diabetes mellitus without complications; Z79.84 Long term (current) use of oral hypoglycemic drugs; L03.115 Cellulitis of right lower limb; Z79.82 Long term (current) use of aspirin; Z87.891 Personal history of nicotine dependence | CPT/HCPCS: 99214 ==

== ENCOUNTER → 2025-03-03 12:46 | Outpatient (BNVA) | payer MEDICARE, SELFPAY | PROVIDERS: PCP Family Medicine; Visit Provider Podiatrist Foot & Ankle Surgery | DX: E11.69 Type 2 diabetes mellitus with other specified complication (principal); L60.3 Nail dystrophy; I73.9 Peripheral vascular disease, unspecified; R60.9 Edema, unspecified; L03.90 Cellulitis, unspecified; I87.2 Venous insufficiency (chronic) (peripheral); Z79.84 Long term (current) use of oral hypoglycemic drugs | CPT/HCPCS: 11721 ==